=== PATIENT | female | born 1985 | race Caucasian/White ===

== ENCOUNTER → 2021-03-11 | Outpatient (CLI) | payer BC ==
[2021-03-11 11:21] LABS: Basophils # (A) 0.08 X 10*3/uL (0.00-0.10); Basophils % (A) 1.3 %; Eosinophils # (A) 0.12 X 10*3/uL (0.04-0.35); Eosinophils % (A) 1.9 %; HCT 42.7 % (37.2-46.3); HGB 13.8 g/dL (12.0-15.0); Lymphocytes # (A) 1.97 X 10*3/uL (0.90-5.00); Lymphocytes % (A) 31.2 %; MCH 27.4 pg (27.0-32.0); MCHC 32.3 g/dL (32.0-37.0); MCV 84.9 fL (80.0-97.0); Mean Platelet Volume 9.9 fL (9.5-12.2); Monocytes # (A) 0.61 X 10*3/uL (0.20-1.00); Monocytes % (A) 9.7 %; Neutrophils # (A) 3.53 X 10*3/uL (1.80-7.70); Neutrophils % (A) 55.7 %; Platelet Count 290 X 10*3/uL (140-440); RBC 5.03 X 10*6/uL (4.10-5.20); RDW 12.6 % (11.5-14.5); WBC 6.32 X 10*3/uL (4.50-10.00)
[2021-03-11 14:44] LABS: African American GFR (CKD) 110.7 (60.0-200.0); Albumin 4.2 g/dL (3.80-4.90); Albumin/Globulin Ratio 1.56 (1.60-3.17); Anion Gap 7.5 mmol/L (4.00-12.00); BUN/Creat Ratio 12.5 Ratio (12.00-20.00); Calcium 9.2 mg/dL (8.7-10.3); Carbon Dioxide 24.5 mmol/L (21.6-31.8); Globulin 2.7 g/dL (1.6-3.3); Non-African American GFR(CKD) 95.5 (60.0-200.0); Potassium 4.1 mmol/L (3.5-5.5); Total Bilirubin 0.6 mg/dL (0.2-1.2); Total Protein 6.9 g/dL (6.2-8.2)
[2021-03-11 15:21] LABS: Cancer Antigen 125 5.7 U/mL (0.0-30.1)
== END | disposition home or self-care (01) ==
LOC: LABWHC1 07:03
PROVIDERS: ATTEND Obstetrics & Gynecology Gynecologic Oncology
DX: D06.9 Carcinoma in situ of cervix, unspecified (principal)
CPT/HCPCS: 36415; 80053; 82378; 85025; 86304

== ENCOUNTER → 2021-06-04 | Outpatient (CLI) | payer BC ==
--- NOTE | 2021-06-08 09:49 | MM ---
Reason for exam: screening (asymptomatic). Baseline mammogram. History: Family history of breast cancer in paternal grandmother at age 40. Taking hormonal contraceptives beginning at age 13. Physical Findings: Nurse did not find any significant physical abnormalities on exam. MG 3D Screening Mammo W/Cad Bilateral CC and MLO view(s) were taken. The breast tissue is heterogeneously dense. This may lower the sensitivity of mammography. Finding: There is an equal density (isodense), microlobulated irregular mass in the 6 o'clock lower quadrant, middle position of the left breast. ASSESSMENT: Incomplete: need additional imaging evaluation, BI-RAD 0 RECOMMENDATION: Special view mammogram and ultrasound of the left breast. [facility] will attempt to contact patient to return for supplemental views and ultrasound.
== END | disposition home or self-care (01) ==
LOC: RADMAMWWP 14:07
PROVIDERS: ATTEND Obstetrics & Gynecology Gynecologic Oncology
DX: Z12.31 Encounter for screening mammogram for malignant neoplasm of breast (principal); Z80.3 Family history of malignant neoplasm of breast
CPT/HCPCS: 77063; 77067

== ENCOUNTER → 2021-06-17 | Outpatient (CLI) | payer BC ==
--- NOTE | 2021-06-17 11:20 | MM ---
Reason for exam: additional evaluation requested from abnormal screening. Last mammogram was performed less than 1 month ago. History: Family history of breast cancer in paternal grandmother at age 40. Taking hormonal contraceptives beginning at age 13. Physical Findings: Breast exam preformed at baseline screening. MG 3D Work Up W/Cad LT Spot compression CC, spot compression MLO, and LM view(s) were taken of the left breast. Prior study comparison: June 04, 2021, bilateral MG 3d screening mammo w/cad. There are scattered fibroglandular densities. The density becomes less defined on spot 3D views. 6mm lobulated asymmetry persists inferiorly on true lateral. These results were verbally communicated with the patient and result sheet given to the patient on 06/17/21. ASSESSMENT: Incomplete: need additional imaging evaluation, BI-RAD 0 RECOMMENDATION: Ultrasound of the left breast. (inferior half)
--- NOTE | 2021-06-17 11:22 | USB ---
Reason for exam: additional evaluation requested from abnormal screening. History: Family history of breast cancer in paternal grandmother at age 40. Taking hormonal contraceptives beginning at age 13. US Breast Workup Limited LT Left limited breast ultrasound including focal area of concern, retroareolar and axilla demonstrates a 4 x 3 x 5mm lobular lesion at 6 o'clock, collapsed cyst or cyst cluster is possible and is likely the mammographic correlate. 6 month follow up recommended. Scanned 3-9 o'clock. These results were verbally communicated with the patient and result sheet given to the patient on 06/17/21. ASSESSMENT: Probably benign, BI-RAD 3 RECOMMENDATION: Follow-up diagnostic mammogram of the left breast in 6 months.
== END | disposition home or self-care (01) ==
LOC: RADMAMWWP 08:18
PROVIDERS: ATTEND Obstetrics & Gynecology Gynecologic Oncology
DX: R92.2 Inconclusive mammogram (principal); N60.02 Solitary cyst of left breast; Z80.3 Family history of malignant neoplasm of breast
CPT/HCPCS: 77061; 77065

== ENCOUNTER → 2021-09-18 | Outpatient (CLI) | payer BC ==
--- NOTE | 2021-09-18 08:37 | XR ---
EXAMINATION TYPE: XR chest 2V DATE OF EXAM: 09/18/2021 COMPARISON: NONE HISTORY: Chest pain TECHNIQUE: Frontal and lateral views of the chest are obtained. FINDINGS: There is no focal air space opacity. No evidence for pneumothorax. No pleural effusion. The cardiac silhouette size is within normal limits. The osseous structures are grossly intact. IMPRESSION: 1. No acute cardiopulmonary process.
[2021-09-18 11:12] LABS: Basophils # (A) 0.08 X 10*3/uL (0.00-0.10); Eosinophils # (A) 0.13 X 10*3/uL (0.04-0.35); Eosinophils % (A) 1.7 %; HCT 44.2 % (37.2-46.3); Immature Grans, Automated 0.3 %; Lymphocytes % (A) 28.5 %; MCH 27.2 pg (27.0-32.0); MCHC 31.7 g/dL (32.0-37.0); Monocytes # (A) 0.59 X 10*3/uL (0.20-1.00); Monocytes % (A) 7.7 %; NRBC Per 100 WBC 0 /100 WBCS (0.0-0.0); Neutrophils # (A) 4.69 X 10*3/uL (1.80-7.70); Neutrophils % (A) 60.8 %; Platelet Count 312 X 10*3/uL (140-440); RBC 5.14 X 10*6/uL (4.10-5.20); RDW 13.1 % (11.5-14.5); WBC 7.71 X 10*3/uL (4.50-10.00)
[2021-09-18 11:43] LABS: African American GFR (CKD) 110.7 (60.0-200.0); Albumin 4.3 g/dL (3.8-4.9); Albumin/Globulin Ratio 1.72 (1.60-3.17); Anion Gap 11.9 mmol/L (10.00-18.00); BUN/Creat Ratio 12.38 Ratio (12.00-20.00); Blood Urea Nitrogen 9.9 mg/dL (9.0-27.0); Calcium 9.3 mg/dL (8.7-10.3); Carbon Dioxide 20.1 mmol/L (20.0-27.5); Globulin 2.5 g/dL (1.6-3.3); Non-African American GFR(CKD) 95.5 (60.0-200.0); Potassium 4.6 mmol/L (3.5-5.5); Total Bilirubin 0.3 mg/dL (0.30-1.20); Total Protein 6.8 g/dL (6.2-8.2)
== END | disposition home or self-care (01) ==
LOC: LABWHC1 08:01
PROVIDERS: ATTEND Obstetrics & Gynecology Gynecologic Oncology
DX: D06.9 Carcinoma in situ of cervix, unspecified (principal)
CPT/HCPCS: 36415; 71046; 80053; 82378; 85025; 86304

== ENCOUNTER → 2022-01-13 | Outpatient (CLI) | payer BC ==
--- NOTE | 2022-01-13 08:09 | MM ---
Reason for Exam: Follow-up at short interval from prior study. Last screening mammogram was performed 7 month(s) ago. Patient History: Menarche at age 13. First Full-Term at age 28. Hormonal Contraceptives, starting at age 13. Paternal grandmother had breast cancer, age 40. Last menstrual period: 12/30/2021 Risk Values: Gisella 5 year model risk: 0.4%. NCI Lifetime model risk: 11.3%. Prior Study Comparison: 06/04/2021 Bilateral Screening Mammogram, [facility]. 06/17/2021 Left Diagnostic Mammogram, [facility]. Tissue Density: Left: The breast tissue is heterogeneously dense. This may lower the sensitivity of mammography. Findings: Analyzed By CAD. Stable chronic nodularity in the left breast. Stable location of scattered benign-appearing round calcification left breast. No new masses or distortion. Overall Assessment: Benign, BI-RAD 2 Management: Screening Mammogram of both breasts at age 40. Return to routine follow-up. Electronically signed and approved by: Vinicio Berry M.D.
== END | disposition home or self-care (01) ==
LOC: RADMAMWWP 07:39
PROVIDERS: ATTEND Obstetrics & Gynecology Gynecologic Oncology
DX: R92.1 Mammographic calcification found on diagnostic imaging of breast (principal); Z80.3 Family history of malignant neoplasm of breast
CPT/HCPCS: 77061; 77065

== ENCOUNTER → 2022-05-10 | Outpatient (CLI) | payer OTHER ==
[2022-05-10 10:37] LABS: Basophils # (A) 0.07 X 10*3/uL (0.00-0.10); Basophils % (A) 1.2 %; Eosinophils # (A) 0.29 X 10*3/uL (0.04-0.35); Eosinophils % (A) 4.9 %; HCT 42.5 % (37.2-46.3); HGB 13.9 g/dL (12.0-15.0); Immature Grans, Automated 0.2 %; Lymphocytes # (A) 2.04 X 10*3/uL (0.90-5.00); Lymphocytes % (A) 34.2 %; MCH 27.5 pg (27.0-32.0); MCHC 32.7 g/dL (32.0-37.0); Mean Platelet Volume 9.9 fL (9.5-12.2); Monocytes # (A) 0.52 X 10*3/uL (0.20-1.00); Monocytes % (A) 8.7 %; NRBC Per 100 WBC 0 /100 WBCS (0.0-0.0); Neutrophils # (A) 3.03 X 10*3/uL (1.80-7.70); Neutrophils % (A) 50.8 %; Platelet Count 323 X 10*3/uL (140-440); RBC 5.06 X 10*6/uL (4.10-5.20); RDW 13.1 % (11.5-14.5); WBC 5.96 X 10*3/uL (4.50-10.00)
[2022-05-10 11:00] LABS: African American GFR (CKD) 109.9 (60.0-200.0); Albumin 4.3 g/dL (3.8-4.9); Albumin/Globulin Ratio 1.79 (1.60-3.17); Anion Gap 10.8 mmol/L (10.00-18.00); BUN/Creat Ratio 12.88 Ratio (12.00-20.00); Blood Urea Nitrogen 10.3 mg/dL (9.0-27.0); Calcium 9.8 mg/dL (8.7-10.3); Cancer Antigen 125 11.5 U/mL (0.0-30.1); Carbon Dioxide 25.2 mmol/L (20.0-27.5); Globulin 2.4 g/dL (1.6-3.3); Non-African American GFR(CKD) 94.8 (60.0-200.0); Potassium 4.3 mmol/L (3.5-5.5); Total Bilirubin 0.3 mg/dL (0.30-1.20); Total Protein 6.7 g/dL (6.2-8.2)
== END | disposition home or self-care (01) ==
LOC: LABWHC1 07:42
PROVIDERS: ATTEND Obstetrics & Gynecology Gynecologic Oncology
DX: D06.9 Carcinoma in situ of cervix, unspecified (principal)
CPT/HCPCS: 36415; 80053; 82378; 85025; 86304

== ENCOUNTER → 2022-11-11 | Outpatient (CLI) | payer OTHER ==
--- NOTE | 2022-11-11 08:42 | XR ---
EXAMINATION TYPE: XR chest 2V DATE OF EXAM: 11/11/2022 COMPARISON: 09/18/2021 INDICATION: Screening adenocarcinoma in situ of cervix TECHNIQUE: Frontal and lateral views of the chest are obtained. FINDINGS: The heart size is normal. The pulmonary vasculature is normal. The lungs are clear. IMPRESSION: 1. No acute pulmonary process.
[2022-11-11 10:53] LABS: Basophils # (A) 0.08 X 10*3/uL (0.00-0.10); Basophils % (A) 1.1 %; Eosinophils # (A) 0.07 X 10*3/uL (0.04-0.35); HCT 42.7 % (37.2-46.3); HGB 13.9 g/dL (12.0-15.0); Immature Grans, Automated 0.1 %; Lymphocytes # (A) 1.81 X 10*3/uL (0.90-5.00); Lymphocytes % (A) 24.9 %; MCH 27.5 pg (27.0-32.0); MCHC 32.6 g/dL (32.0-37.0); MCV 84.4 fL (80.0-97.0); Mean Platelet Volume 9.7 fL (9.5-12.2); Monocytes % (A) 8.3 %; NRBC Per 100 WBC 0 /100 WBCS (0.0-0.0); Neutrophils % (A) 64.6 %; Platelet Count 286 X 10*3/uL (140-440); RBC 5.06 X 10*6/uL (4.10-5.20); RDW 13.3 % (11.5-14.5); WBC 7.27 X 10*3/uL (4.50-10.00)
[2022-11-11 11:24] LABS: African American GFR (CKD) 109.2 (60.0-200.0); Albumin 4.3 g/dL (3.8-4.9); Albumin/Globulin Ratio 1.65 (1.60-3.17); Anion Gap 9.9 mmol/L (10.00-18.00); BUN/Creat Ratio 9.75 Ratio (12.00-20.00); Blood Urea Nitrogen 7.8 mg/dL (9.0-27.0); Calcium 9.6 mg/dL (8.7-10.3); Cancer Antigen 125 10.9 U/mL (0.0-30.1); Carbon Dioxide 23.1 mmol/L (20.0-27.5); Globulin 2.6 g/dL (1.6-3.3); Non-African American GFR(CKD) 94.2 (60.0-200.0); Potassium 4.3 mmol/L (3.5-5.5); Total Bilirubin 0.4 mg/dL (0.30-1.20); Total Protein 6.9 g/dL (6.2-8.2)
== END | disposition home or self-care (01) ==
LOC: LABWHC1 07:00
PROVIDERS: ATTEND Obstetrics & Gynecology Gynecologic Oncology
DX: D06.9 Carcinoma in situ of cervix, unspecified (principal)
CPT/HCPCS: 36415; 71046; 80053; 82378; 85025; 86304

== ENCOUNTER → 2022-11-25 | Outpatient (CLI) | payer OTHER ==
[2022-11-25 19:32] LABS: Basophils # (A) 0.05 X 10*3/uL (0.00-0.10); Basophils % (A) 0.8 %; Eosinophils # (A) 0.07 X 10*3/uL (0.04-0.35); Eosinophils % (A) 1.2 %; HCT 46.4 % (37.2-46.3); HGB 14.5 g/dL (12.0-15.0); Immature Grans, Automated 0.2 %; Lymphocytes % (A) 30.4 %; MCH 27.3 pg (27.0-32.0); MCHC 31.3 g/dL (32.0-37.0); MCV 87.2 fL (80.0-97.0); Monocytes # (A) 0.52 X 10*3/uL (0.20-1.00); Monocytes % (A) 8.8 %; NRBC Per 100 WBC 0 /100 WBCS (0.0-0.0); Neutrophils # (A) 3.48 X 10*3/uL (1.80-7.70); Neutrophils % (A) 58.6 %; Platelet Count 284 X 10*3/uL (140-440); RBC 5.32 X 10*6/uL (4.10-5.20); RDW 13.7 % (11.5-14.5); WBC 5.93 X 10*3/uL (4.50-10.00)
[2022-11-25 20:50] LABS: % Iron Saturation 16.65 (12.00-45.00); Ferritin 51.8 ng/mL (10.0-291.0)
== END | disposition home or self-care (01) ==
LOC: LABWHC1 07:22
PROVIDERS: ATTEND Family Medicine
DX: R79.0 Abnormal level of blood mineral (principal)
CPT/HCPCS: 36415; 82728; 83540; 83550; 85025

== ENCOUNTER → 2023-02-08 | Outpatient (CLI) | payer OTHER ==
--- NOTE | 2023-02-08 09:07 | MM ---
Reason for Exam: Screening (asymptomatic). Last mammogram was performed 1 year(s) and 8 month(s) ago. Patient History: Menarche at age 13. First Full-Term at age 28. Premenopausal. Hormonal Contraceptives, starting at age 13. Paternal grandmother had breast cancer, age 40. Risk Values: Gisella 5 year model risk: 0.4%. NCI Lifetime model risk: 11.2%. Prior Study Comparison: 06/04/2021 Bilateral Screening Mammogram, [facility]. 06/17/2021 Left Diagnostic Mammogram, [facility]. 01/13/2022 Left MG 3D diag mammo w/cad LT, [facility]. Tissue Density: There are scattered fibroglandular densities. Findings: Analyzed By CAD. There is no suspicious group of microcalcifications or new suspicious mass in either breast. Overall Assessment: Negative, BI-RAD 1 Management: Screening Mammogram of both breasts in [address] [facility] will attempt to contact patient to return for supplemental views and ultrasound if indicated. Patient should continue monthly self-breast exams. A clinical breast exam by your physician is recommended on an annual basis. This exam should not preclude additional follow-up of suspicious palpable abnormalities. Note on Gisella scores and lifetime risk: 1. A Gisella score greater than 3% is considered moderate risk. If this is the case, consider specialist referral to assess eligibility for a risk reducing agent. 2. If overall lifetime risk for the development of breast cancer is 20% or higher, the patient may qualify for future screening with alternating mammogram and breast MRI. Electronically signed and approved by: Miguel Angel Wilks DO
== END | disposition home or self-care (01) ==
LOC: RADMAMWWP 07:13
PROVIDERS: ATTEND Obstetrics & Gynecology Gynecologic Oncology
DX: Z12.31 Encounter for screening mammogram for malignant neoplasm of breast (principal); Z80.3 Family history of malignant neoplasm of breast
CPT/HCPCS: 77063; 77067

== ENCOUNTER → 2023-08-30 | Outpatient (CLI) | payer OTHER ==
[2023-08-30 13:05] LABS: Basophils # (A) 0.03 X 10*3/uL (0.00-0.10); Basophils % (A) 0.3 %; Eosinophils # (A) 0.02 X 10*3/uL (0.04-0.35); Eosinophils % (A) 0.2 %; HCT 42.1 % (37.2-46.3); HGB 13.7 g/dL (12.0-15.0); Lymphocytes # (A) 3.23 X 10*3/uL (0.90-5.00); Lymphocytes % (A) 30.8 %; MCH 28.2 pg (27.0-32.0); MCHC 32.5 g/dL (32.0-37.0); MCV 86.6 FL (80.0-97.0); Monocytes # (A) 0.87 X 10*3/uL (0.20-1.00); Monocytes % (A) 8.3 %; NRBC Per 100 WBC 0 X 10*3/uL (0.00-0.01); Neutrophils # (A) 6.32 X 10*3/uL (1.80-7.70); Neutrophils % (A) 60.2 %; Platelet Count 331 X 10*3/uL (140-440); RBC 4.86 X 10*6/uL (4.10-5.20); RDW 13.1 % (11.5-14.5); WBC 10.49 X 10*3/uL (4.50-10.00)
[2023-08-30 13:44] LABS: ALT 12 U/L (8-44); AST 14 U/L (13-35); Albumin 4.7 g/dL (3.8-4.9); Albumin/Globulin Ratio 1.88 Ratio (1.60-3.17); Alkaline Phosphatase 50 U/L (41-126); Blood Urea Nitrogen 10.8 mg/dL (9.0-27.0); Calcium 9.8 mg/dL (8.7-10.3); Cancer Antigen 125 9.8 U/mL (0.0-30.1); Carbon Dioxide 25.1 mmol/L (21.6-31.8); Chloride 101 mmol/L (96-109); Globulin 2.5 g/dL (1.6-3.3); Glucose 95 mg/dL (70-110); Potassium 3.8 mmol/L (3.5-5.5); Sodium 137 mmol/L (135-145); Total Bilirubin 0.4 mg/dL (0.3-1.2); Total Protein 7.2 g/dL (6.2-8.2)
== END | disposition home or self-care (01) ==
LOC: LABWHC1 07:13
PROVIDERS: ATTEND Obstetrics & Gynecology Gynecologic Oncology
DX: D06.9 Carcinoma in situ of cervix, unspecified (principal)
CPT/HCPCS: 36415; 80053; 82378; 85025; 86304

== ENCOUNTER → 2023-08-31 | Outpatient (CLI) | payer OTHER ==
--- NOTE | 2023-09-01 10:58 | MM ---
Reason for Exam: Screening (asymptomatic). Last screening mammogram was performed 6 month(s) ago. Patient History: Menarche at age 13. First Full-Term at age 28. Premenopausal. Hormonal Contraceptives, starting at age 13. Paternal grandmother had breast cancer, age 40. Risk Values: Gisella 5 year model risk: 0.4%. NCI Lifetime model risk: 11.2%. Prior Study Comparison: 06/17/2021 Left Diagnostic Mammogram, [facility]. 01/13/2022 Left MG 3D diag mammo w/cad LT, [facility]. 02/08/2023 Bilateral MG 3D screening mammo w/cad, [facility]. Tissue Density: The breast tissue is heterogeneously dense. This may lower the sensitivity of mammography. Findings: Analyzed By CAD. There is no suspicious group of microcalcifications or new suspicious mass. Benign-appearing calcifications bilaterally. Overall Assessment: Benign, BI-RAD 2 Management: Screening Mammogram of both breasts in [address] [facility] will attempt to contact patient to return for supplemental views and ultrasound if indicated. Patient should continue monthly self-breast exams. A clinical breast exam by your physician is recommended on an annual basis. This exam should not preclude additional follow-up of suspicious palpable abnormalities. Note on Gisella scores and lifetime risk: 1. A Gisella score greater than 3% is considered moderate risk. If this is the case, consider specialist referral to assess eligibility for a risk reducing agent. 2. If overall lifetime risk for the development of breast cancer is 20% or higher, the patient may qualify for future screening with alternating mammogram and breast MRI. Electronically signed and approved by: Miguel Angel Wilks DO
== END | disposition home or self-care (01) ==
LOC: RADMAMWWP 06:51
PROVIDERS: ATTEND Obstetrics & Gynecology Gynecologic Oncology
DX: Z12.31 Encounter for screening mammogram for malignant neoplasm of breast (principal); Z80.3 Family history of malignant neoplasm of breast
CPT/HCPCS: 77063; 77067

== ENCOUNTER 2024-05-06 09:42 | Inpatient (IN) | payer OTHER ==
[2024-05-06] MEDS: SODIUM CHLORIDE 0.9% 1,000 ML IV ONE (10:28)
[2024-05-06] MEDS: HYDROmorphone 1 MG/ML 1 ML SYRINGE IVP STA ×2 (10:29→14:45)
[2024-05-06] MEDS: ONDANSETRON 4 MG/2 ML VIAL IVP STA (10:29)
--- NOTE | 2024-05-06 10:33 | ED ---
General Adult HPI - General Chief complaint: Headache Stated complaint: Headache Time Seen by Provider: 05/06/24 09:53 Source: patient, RN notes reviewed, old records reviewed Mode of arrival: ambulatory Limitations: no limitations - History of Present Illness Initial comments: 38 yo female presenting with headache, left frontal. Headache is severe. Nova ferro has been seen in outpatient clinic, seen by ENT, referred to the emergency room where she underwent CT imaging of the brain. Diagnosed with sinusitis for which she has been on antibiotics for the past several days. She has persistent severe pain above the left eye. - Related Data Allergies Allergy/AdvReac Type Severity Reaction Status Date / Time peanut AdvReac Nausea & Verified 05/06/24 09:53 Vomiting tuna oil AdvReac Unknown Verified 05/06/24 09:53 Review of Systems ROS Statement: Those systems with pertinent positive or pertinent negative responses have been documented in the HPI. ROS Other: All systems not noted in ROS Statement are negative. Past Medical History Past Medical History: No Reported History History of Any Multi-Drug Resistant Organisms: None Reported Additional Past Surgical History / Comment(s): septoplasty Past Psychological History: Depression Smoking Status: Vaper Past Alcohol Use History: Occasional Past Drug Use History: None Reported General Exam Limitations: no limitations General appearance: alert Head exam: Present: atraumatic, normocephalic Eye exam: Present: PERRL, EOMI, conjunctival injection (Chemosis) Neck exam: Present: normal inspection. Absent: tenderness, meningismus Respiratory exam: Present: normal lung sounds bilaterally. Absent: respiratory distress, wheezes Cardiovascular Exam: Present: regular rate, normal rhythm GI/Abdominal exam: Present: soft. Absent: distended, tenderness, guarding Neurological exam: Present: alert, oriented X3, CN II-XII intact. Absent: motor sensory deficit Psychiatric exam: Present: normal affect, normal mood Skin exam: Present: warm, dry, intact. Absent: cyanosis, diaphoretic Course Vital Signs 05/06/24 09:50 Temperature 97.9 F Pulse Rate 74 Respiratory 20 Rate Blood Pressure 135/102 O2 Sat by Pulse 97 Oximetry Medical Decision Making - Medical Decision Making Was pt. sent in by a medical professional or institution (, PA, [employer], urgent care, hospital, or [facility]...) When possible be specific @ -No Did you speak to anyone other than the patient for history (EMS, parent, family, police, friend...)? What history was obtained from this source @ -No Did you review nursing and triage notes (agree or disagree)? Why? @ -I reviewed and agree with nursing and triage notes Were old charts reviewed (outside hosp., previous admission, EMS record, old EKG , old radiological studies, urgent care reports/EKG's, [facility] records)? Report findings @ -No old charts were reviewed Differential Headache: Migraine, tension, cluster, carbon monoxide, central venous thrombosis, pension karma temporal arteritis, acute closure glaucoma, intercranial hemorrhage, mastoiditis, sinusitis, head injury, this is not meant to be an all-inclusive list. EKG interpreted by me (3pts min.). @ -As above X-rays interpreted by me (1pt min.). @ -None done CT interpreted by me (1pt min.). @CT brain and CT of the left orbit are negative for acute process. There is no signs of sinusitis on CT imaging. U/S interpreted by me (1pt. min.). @ -None done What testing was considered but not performed or refused? (CT, X-rays, U/S, labs)? Why? @ -None What meds were considered but not given or refused? Why? @ -None Did you discuss the management of the patient with other professionals (professionals i.e. , PA, [employer], lab, RT, psych nurse, social media marketing specialist, hospitality services manager, teacher, botanical technical officer, counseling case manager)? Give summary @ -No Was smoking cessation discussed for >3mins.? @ -No Was critical care preformed (if so, how long)? @ -No Were there social determinants of health that impacted care today? How? (Homelessness, low income, unemployed, alcoholism, drug addiction, transportation, low edu. Level, literacy, decrease access to med. care, [facility], rehab)? @ -No Was there de-escalation of care discussed even if they declined (Discuss DNR or withdrawal of care, Hospice)? DNR status @ -No What co-morbidities impacted this encounter? (DM, HTN, Smoking, COPD, CAD, Ca ncer, CVA, ARF, Chemo, Hep., AIDS, mental health diagnosis, sleep apnea, morbid obesity)? @ -None Was patient admitted / discharged? Hospital course, mention meds given and route, prescriptions, significant lab abnormalities, going to OR and other pertinent info. @ -38-year-old female with severe left sided headache predominantly left frontal. This is intermittent and severe in nature. Head CT and CT of the orbit is obtained as well as laboratory studies including inflammatory markers. Workup in the emergency department is negative. I do suspect her headache is caused by trigeminal neuralgia. She started on carbamazepine. But given the severity of her headache and the persistence of this headache she will be admitted for symptom control. Neurology placed on consult. Case discussed with [facility]. Undiagnosed new problem with uncertain prognosis? @ -No Drug Therapy requiring intensive monitoring for toxicity (Heparin, Nitro, Insulin, Cardizem)? @ -No Were any procedures done? @ -No Diagnosis/symptom? @ -Intractable headache, possible trigeminal neuralgia Acute, or Chronic, or Acute on Chronic? @ -Acute Uncomplicated (without systemic symptoms) or Complicated (systemic symptoms)? @ -Default Side effects of treatment? @ -No Exacerbation, Progression, or Severe Exacerbation? @ -No Poses a threat to life or bodily function? How? (Chest pain, [place], [place], pneumonia, PE, COPD, DKA, ARF, appy, cholecystitis, CVA, Diverticulitis, Homicidal, Suicidal, threat to staff... and all critical care pts) @ -Low risk at this time - Lab Data Result diagrams: 05/06/24 10:35 05/06/24 10:35 Lab Results 05/06/24 05/06/24 05/06/24 Range/Units 10:35 10:35 10:35 WBC 6.8 (3.8-10.6) k/uL RBC 4.84 (3.80-5.40) m/uL Hgb 14.2 (11.4-16.0) gm/dL Hct 41.8 (34.0-46.0) % MCV 86.4 (80.0-100.0) fL MCH 29.3 (25.0-35.0) pg MCHC 33.8 (31.0-37.0) g/dL RDW 12.6 (11.5-15.5) % Plt Count 250 (150-450) k/uL MPV 7.6 Neutrophils % 70 % Lymphocytes % 20 % Monocytes % 6 % Eosinophils % 2 % Basophils % 1 % Neutrophils # 4.8 (1.3-7.7) k/uL Lymphocytes # 1.4 (1.0-4.8) k/uL Monocytes # 0.4 (0-1.0) k/uL Eosinophils # 0.1 (0-0.7) k/uL Basophils # 0.1 (0-0.2) k/uL Sodium 136 L (137-145) mmol/L Potassium 4.0 (3.5-5.1) mmol/L Chloride 106 (98-107) mmol/L Carbon Dioxide 27 (22-30) mmol/L Anion Gap 3 mmol/L BUN 11 (7-17) mg/dL Creatinine 0.67 (0.52-1.04) mg/dL Est GFR (CKD-EPI)AfAm >90 (>60 ml/min/1.73 sqM) Est GFR (CKD-EPI)NonAf >90 (>60 ml/min/1.73 sqM) Glucose 96 (74-99) mg/dL Plasma Lactic Acid Josh 1.3 (0.7-2.0) mmol/L Calcium 9.3 (8.4-10.2) mg/dL Magnesium 1.8 (1.6-2.3) mg/dL Total Bilirubin 0.5 (0.2-1.3) mg/dL AST 18 (14-36) U/L ALT 14 (4-34) U/L Alkaline Phosphatase 40 (38-126) U/L C-Reactive Protein <0.5 (<1.0) mg/dL Total Protein 6.4 (6.3-8.2) g/dL Albumin 4.0 (3.5-5.0) g/dL Influenza Type A (PCR) (Not Detectd) Influenza Type B (PCR) (Not Detectd) RSV (PCR) (Not Detectd) SARS-CoV-2 (PCR) (Not Detectd) 05/06/24 Range/Units 10:35 WBC (3.8-10.6) k/uL RBC (3.80-5.40) m/uL Hgb (11.4-16.0) gm/dL Hct (34.0-46.0) % MCV (80.0-100.0) fL MCH (25.0-35.0) pg MCHC (31.0-37.0) g/dL RDW (11.5-15.5) % Plt Count (150-450) k/uL MPV Neutrophils % % Lymphocytes % % Monocytes % % Eosinophils % % Basophils % % Neutrophils # (1.3-7.7) k/uL Lymphocytes # (1.0-4.8) k/uL Monocytes # (0-1.0) k/uL Eosinophils # (0-0.7) k/uL Basophils # (0-0.2) k/uL Sodium (137-145) mmol/L Potassium (3.5-5.1) mmol/L Chloride (98-107) mmol/L Carbon Dioxide (22-30) mmol/L Anion Gap mmol/L BUN (7-17) mg/dL Creatinine (0.52-1.04) mg/dL Est GFR (CKD-EPI)AfAm (>60 ml/min/1.73 sqM) Est GFR (CKD-EPI)NonAf (>60 ml/min/1.73 sqM) Glucose (74-99) mg/dL Plasma Lactic Acid Josh (0.7-2.0) mmol/L Calcium (8.4-10.2) mg/dL Magnesium (1.6-2.3) mg/dL Total Bilirubin (0.2-1.3) mg/dL AST (14-36) U/L ALT (4-34) U/L Alkaline Phosphatase (38-126) U/L C-Reactive Protein (<1.0) mg/dL Total Protein (6.3-8.2) g/dL Albumin (3.5-5.0) g/dL Influenza Type A (PCR) Not Detected (Not Detectd) Influenza Type B (PCR) Not Detected (Not Detectd) RSV (PCR) Not Detected (Not Detectd) SARS-CoV-2 (PCR) Not Detected (Not Detectd) Disposition Clinical Impression: Trigeminal neuralgia, Headache Disposition: ADMITTED IP TO THIS [facility] Condition: Stable Is patient prescribed a controlled substance at d/c from ED?: No Referrals: None,Stated [Primary Care Provider] - 1-2 days Time of Disposition: 13:49
[2024-05-06 11:03] LABS: Basophils # (A) 0.1 k/uL (0-0.2); Basophils % (A) 1 %; Eosinophils # (A) 0.1 k/uL (0-0.7); Eosinophils % (A) 2 %; HCT 41.8 % (34.0-46.0); HGB 14.2 gm/dL (11.4-16.0); Lymphocytes # (A) 1.4 k/uL (1.0-4.8); Lymphocytes % (A) 20 %; MCH 29.3 pg (25.0-35.0); MCHC 33.8 g/dL (31.0-37.0); MCV 86.4 fL (80.0-100.0); Mean Platelet Volume 7.6; Monocytes # (A) 0.4 k/uL (0-1.0); Monocytes % (A) 6 %; Neutrophils # (A) 4.8 k/uL (1.3-7.7); Neutrophils % (A) 70 %; Platelet Count 250 k/uL (150-450); RBC 4.84 m/uL (3.80-5.40); RDW 12.6 % (11.5-15.5); WBC 6.8 k/uL (3.8-10.6)
--- NOTE | 2024-05-06 11:14 | CT ---
EXAMINATION TYPE: CT brain wo con DATE OF EXAM: 05/06/2024 COMPARISON: None INDICATION: PIERSON/EYE PAIN DLP: 1168.5 mGycm, Automated exposure control for dose reduction was used. CONTRAST: None CT of the brain is performed utilizing 3 mm thick sections through the posterior fossa and 3 mm thick sections through the remaining calvarium. Study is performed within 24 hours of arrival to the hosp [place]. No abnormal hyperdensity is present to suggest an acute intracranial hemorrhage. No mass lesion is evident. No acute infarcts are evident. Ventricles and sulci are appropriate for the patient age. Paranasal sinuses and mastoid air cells within the [id number] are clear. IMPRESSION: 1. No acute intracranial process. Follow up MRI can be performed as clinically indicated. [facility], Workstation: [email or web address], 05/06/2024 11:11 AM
[2024-05-06 11:15] LABS: ALT 14 U/L (4-34); AST 18 U/L (14-36); African American GFR (CKD) >90 (>60 ml/min/1.73 sqM); Alkaline Phosphatase 40 U/L (38-126); Anion Gap 3 mmol/L; Blood Urea Nitrogen 11 mg/dL (7-17); C Reactive Protein <0.5 mg/dL (<1.0); Calcium 9.3 mg/dL (8.4-10.2); Carbon Dioxide 27 mmol/L (22-30); Chloride 106 mmol/L (98-107); Glucose 96 mg/dL (74-99); Magnesium 1.8 mg/dL (1.6-2.3); Non-African American GFR(CKD) >90 (>60 ml/min/1.73 sqM); Sodium 136 mmol/L (137-145); Total Bilirubin 0.5 mg/dL (0.2-1.3); Total Protein 6.4 g/dL (6.3-8.2)
--- NOTE | 2024-05-06 11:16 | CT ---
EXAMINATION TYPE: CT orbits w con DATE OF EXAM: 05/06/2024 COMPARISON: None HISTORY: SEVERE EYE PAIN CT DLP: 286.3 mGycm Automated exposure control for dose reduction was used. Contrast: None Technique: Axial images 2 mm thick sections. Reconstructed images coronal plane. FINDINGS: Globes are symmetrical. Extraocular muscles appear normal. Intraconal and extraconal fat appears norm al. Optic nerves appear unremarkable. Superior ophthalmic veins appear unremarkable. Lacrimal glands appear unremarkable Adjacent paranasal sinuses are clear. No acute osseous abnormality. Greater wings of the sphenoid are normal. Ostiomeatal units are patent. Mild right septal deviation is evident. IMPRESSION: 1. NO SUSPICIOUS ORBITAL CHANGES BY CT. [facility], Workstation: [facility], 05/06/2024 11:14 AM
[2024-05-06] MEDS: carBAMazepine 200 MG TAB PO STA (11:53)
[2024-05-06] MEDS ORDERED: NALOXONE 0.4 MG/ML 1 ML VIAL IV PRN (13:46)
[2024-05-06] MEDS: SODIUM CHLORIDE 0.9% 1,000 ML IV SCH (14:47)
[2024-05-06] MEDS: KETOROLAC 15 MG/ML 1 ML VIAL IVP STA (16:10)
[2024-05-06] MEDS: PROCHLORPERAZINE INJ 10 MG/2 ML VIAL IVP STA (16:11)
[2024-05-06] MEDS: diphenhydrAMINE 50 MG/ML 1 ML VIAL IVP STA (16:11)
--- NOTE | 2024-05-06 16:17 | P.HPIM ---
History of Present Illness H&P Date: 05/06/24 History of Presenting Illness: Patient is a pleasant 38-year-old female with a past medical history of depression, nicotine use via vaping, and previous septoplasty. She presented to the emergency department with reports of severe intractable migraine headache. Patient reports symptoms initially began 10 days ago. She reports she was seen and evaluated in the emergency department and diagnosed with a sinus infection and started on Augmentin and discharged home. She reports she followed up outpatient with her PCP and was referred to the ENT. She states after seeing the ENT she was sent back to the emergency department at [facility] and was again instructed that she had a sinus infection and to continue same antibiotic regimen and discharged home. Patient reports initially this headache waxed and waned but over the past 3 to 4 days the symptoms significantly worsened and have become a sharp persistent pain above her left eye accompanied by drooping of her left eyelid, and pink watery left eye. She denies having any visual changes states things are little blurry due to the excess tearing but denies having any double vision, floaters, flashers, or loss of vision. Patient denies having any dizziness, lightheadedness, fevers, chills, chest pain, palpitations, shortness of breath, or experiencing any numbness/tingling/weakness/swelling in her extremities. Patient does deny chance of and reports having a negative test just 3 days prior. Upon arrival to our facility, patient underwent evaluation in the emergency department. Vital signs upon arrival show blood pressure 135/102, heart rate 74, respiratory rate 20, temp 97.9 F, and SpO2 of 97% on room air. CT brain completed negative for acute intracranial process. Orbital CT with contrast negative showing no suspicious orbital changes by CT criteria, revealing mild right septal deviation with clear paranasal sinuses.. Labs completed and reviewed. CBC unremarkable. BMP normal findings. Lactic acid 1.3. Magnesium 1.8. Liver profile unremarkable. CRP less than 0.5. Influenza A, influenza B, RSV, and COVID PCR negative. Patient started on Tegretol for concerns of trigeminal neuralgia. She was admitted under services with consultation to neurology. Review of systems: Pertinent positives and negatives as discussed in HPI, a complete review of systems was performed and all other systems are negative. Physical exam: Vital signs reviewed and stable. General: Nontoxic, no distress and appears stated age. Derm: Skin warm and dry, normal coloration for ethnicity. Head: Atraumatic, normocephalic and symmetric. Eyes: EOM's intact, no lid lag, and anicteric sclera Mouth: no lip lesions, mucus membranes moist Cardiovascular: regular rate and rhythm with normal S1S2, no murmur, positive posterior tibial pulses bilaterally, and cap refill < 2 seconds. Lungs: Respirations even, regular, and unlabored on room air. Lungs CTA bilaterally, no rhonchi, no rales, no wheezing, and no accessory muscle usage. Abdominal: soft, nontender to palpation, no guarding, no appreciable organomegaly Ext: ROM intact. No gross muscle atrophy, no edema, no contractures Neuro: Speech clear, face symmetrical and CN II-XII grossly intact with no noted focal neuro deficits Psych: Alert and oriented to person, place, time, and situation. Appropriate and pleasant affect. Assessment and Plan of Care: Intractable migraine with concerns of cluster headache vs trigeminal neuralgia -Symptoms highly concerning for cluster headache versus trigeminal neuralgia as patient has drooping left eyelid, sinus congestion, continuous tearing, and reddened sclera. -Patient started on carbamazepine 200 mg twice daily in the emergency department. -Order placed for Decadron 10 mg IVP x 1 dose along with migraine cocktail consisting of Toradol 15 mg IVP, Benadryl 25 mg IVP, and Compazine 10 mg IVP -Consult placed to neurology, appreciate recommendations -Order placed for serum hCG -Neurochecks every 4 hours. -Symptomatic care and pain management with Zofran 4 mg IVP as needed for nausea or vomiting and Artificial tears 2 drops left eye every 4 hours as needed for dry eyes/irritation. . -Pain management with-Tylenol 650 mg every 6 hours as needed for mild pain/fever, Dilaudid 0.5 mg every 3 hours as needed for moderate pain, and Dilaudid 1 mg IVP every 3 hours as needed for severe pain. Depression and anxiety -Continue sertraline 100 mg nightly. Data and imaging reviewed: -As stated above in HPI CODE STATUS: Full code DVT prophylaxis: Lovenox Anticipated discharge date: Pending clinical course Anticipated discharge place: Home Patient was seen independently by Nurse Practitioner. This document was prepared using [employer] dictation software. Please allow for errors in engineering director while rare they do occur. I reviewed the documentation as provided by the SYDNIE above, who is the original author of this note. I agree with the documented assessment and plan, with the following changes: none Past Medical History Past Medical History: No Reported History History of Any Multi-Drug Resistant Organisms: None Reported Additional Past Surgical History / Comment(s): septoplasty Past Psychological History: Depression Smoking Status: Vaper Past Alcohol Use History: Occasional Past Drug Use History: None Reported Medications and Allergies Home Medications Medication Instructions Recorded Confirmed Type Cetirizine HCl [Zyrtec] 10 mg PO HS 05/06/24 05/06/24 History Sertraline [Zoloft] 100 mg PO HS 05/06/24 05/06/24 History hydrOXYzine HCL [Atarax] 10 mg PO HS 05/06/24 05/06/24 History Allergies Allergy/AdvReac Type Severity Reaction Status Date / Time peanut AdvReac Nausea & Verified 05/06/24 14:33 Vomiting tuna oil AdvReac Unknown Verified 05/06/24 14:33 Physical Exam Osteopathic Statement: *. No significant issues noted on an osteopathic structural exam other than those noted in the History and Physical/Consult. Vitals: Vital Signs Temp Pulse Resp BP Pulse Ox 05/06/24 14:52 79 18 133/95 05/06/24 11:46 140/90 05/06/24 09:50 97.9 F 74 20 135/102 97 Intake and Output 05/05/24 05/06/24 05/06/24 22:59 06:59 14:59 Other: Weight 77.111 kg Results CBC & Chem 7: 05/06/24 10:35 05/06/24 10:35 Labs: Abnormal Lab Results - Last 24 Hours (Table) 05/06/24 Range/Units 10:35 Sodium 136 L (137-145) mmol/L
[2024-05-06] MEDS: DEXAMETHASONE SOD PHOSPHATE 10 MG/ML 1 ML VIAL IVP STA (16:57)
[2024-05-06] MEDS: HYDROmorphone 1 MG/ML 1 ML SYRINGE IVP PRN (19:31)
[2024-05-06] MEDS: carBAMazepine 200 MG TAB PO SCH (22:05)
[2024-05-06] MEDS: hydrOXYzine HCL 10 MG TAB PO SCH (22:05)
[2024-05-06] MEDS: SERTRALINE 100 MG TAB PO SCH (22:06)
[2024-05-06] MEDS: LORATADINE 10 MG TAB PO SCH (22:06)
[2024-05-06 23:05] LABS: Erythrocyte Sedimentation Rate 11 mm/Hr (0-20)
[2024-05-07 02:30] LABS: HCT 40.2 % (34.0-46.0); HGB 13.1 gm/dL (11.4-16.0); MCH 29.2 pg (25.0-35.0); MCHC 32.5 g/dL (31.0-37.0); MCV 89.7 fL (80.0-100.0); Mean Platelet Volume 7.6; Platelet Count 280 k/uL (150-450); RBC 4.48 m/uL (3.80-5.40); RDW 12.5 % (11.5-15.5); WBC 10.6 k/uL (3.8-10.6)
[2024-05-07 03:00] LABS: Anion Gap 3 mmol/L; Blood Urea Nitrogen 9 mg/dL (7-17); Carbon Dioxide 24 mmol/L (22-30); Chloride 107 mmol/L (98-107); Glucose 113 mg/dL (74-99); Potassium 4.3 mmol/L (3.5-5.1); Sodium 134 mmol/L (137-145)
[2024-05-07 03:01] LABS: African American GFR (CKD) >90 (>60 ml/min/1.73 sqM); Calcium 8.8 mg/dL (8.4-10.2); Non-African American GFR(CKD) >90 (>60 ml/min/1.73 sqM)
[2024-05-07] MEDS: ONDANSETRON 4 MG/2 ML VIAL IVP PRN (05:40)
[2024-05-07] MEDS: ENOXAPARIN 40 MG/0.4 ML SYRINGE SQ SCH (08:26)
[2024-05-07] MEDS: IBUPROFEN 400 MG TAB PO PRN (08:26)
[2024-05-07] MEDS: PROCHLORPERAZINE INJ 10 MG/2 ML VIAL IVP PRN (09:44)
[2024-05-07] MEDS: SUMAtriptan succinate 50 MG TAB PO STA (11:36)
--- NOTE | 2024-05-07 14:19 | P.PN ---
Subjective Progress Note Date: 05/07/24 History of Presenting Illness: Patient is a pleasant 38-year-old female with a past medical history of depression, nicotine use via vaping, and previous septoplasty. She presented to the emergency department with reports of severe intractable migraine headache. Patient reports symptoms initially began 10 days ago. She reports she was seen and evaluated in the emergency department and diagnosed with a sinus infection and started on Augmentin and discharged home. She reports she followed up outpatient with her PCP and was referred to the ENT. She states after seeing the ENT she was sent back to the emergency department at [facility] and was again instructed that she had a sinus infection and to continue same antibiotic regimen and discharged home. Patient reports initially this headache waxed and waned but over the past 3 to 4 days the symptoms significantly worsened and have become a sharp persistent pain above her left eye accompanied by drooping of her left eyelid, and pink watery left eye. She denies having any visual changes states things are little blurry due to the excess tearing but denies having any double vision, floaters, flashers, or loss of vision. Patient denies having any dizziness, lightheadedness, fevers, chills, chest pain, palpitations, shortness of breath, or experiencing any numb ness/tingling/weakness/swelling in her extremities. Patient does deny chance of and reports having a negative test just 3 days prior. Upon arrival to our facility, patient underwent evaluation in the emergency department. Vital signs upon arrival show blood pressure 135/102, heart rate 74, respiratory rate 20, temp 97.9 F, and SpO2 of 97% on room air. CT brain completed negative for acute intracranial process. Orbital CT with contrast negative showing no suspicious orbital changes by CT criteria, revealing mild right septal deviation with clear paranasal sinuses.. Labs completed and reviewed. CBC unremarkable. BMP normal findings. Lactic acid 1.3. Magnesium 1.8. Liver profile unremarkable. CRP less than 0.5. Influenza A, influenza B, RSV, and COVID PCR negative. Patient started on Tegretol for concerns of trigeminal neuralgia. She was admitted under services with consultation to neurology. Physical exam: Patient seen and fully evaluated at bedside. She was in a dark room with ice pack on her head and earplugs in place. She continues to report persistent unrelenting headache to left frontal region of her head. She continues to have left eyelid drooping, reddened sclera, and continuous tearing of left eye. She reports uncontrolled nausea, photophobia and phonophobia. Patient has been receiving Dilaudid and received migraine cocktail with no resolution of pain. She has been on Tegretol 200 mg twice daily and Zofran for nausea without improvement. Additional orders placed for Compazine and a one-time dose of Imitrex. Vital signs reviewed and stable. General: Nontoxic, no distress and appears stated age. Derm: Skin warm and dry, normal coloration for ethnicity. Head: Atraumatic, normocephalic and symmetric. Eyes: EOM's intact, and anicteric sclera. left eyelid drooping, reddened s clera, and continuous tearing of left eye. Mouth: no lip lesions, mucus membranes moist Cardiovascular: regular rate and rhythm with normal S1S2, no murmur, positive posterior tibial pulses bilaterally, and cap refill < 2 seconds. Lungs: Respirations even, regular, and unlabored on room air. Lungs CTA bilaterally, no rhonchi, no rales, no wheezing, and no accessory muscle usage. Abdominal: soft, nontender to palpation, no guarding, no appreciable organomegaly Ext: ROM intact. No gross muscle atrophy, no edema, no contractures Neuro: Speech clear, face symmetrical and CN II-XII grossly intact with no noted focal neuro deficits Psych: Alert and oriented to person, place, time, and situation. Appropriate and pleasant affect. Assessment and Plan of Care: Intractable migraine with concerns of cluster headache vs trigeminal neuralgia -Symptoms highly concerning for cluster headache versus trigeminal neuralgia as patient has drooping left eyelid, sinus congestion, continuous tearing, and reddened sclera. -Continue carbamazepine 200 mg twice daily pending further recommendations from neurologist. -Order placed for -Neurology following, discussed plan of care with Dr. Smith and he states he is ordering MRI and MRA of brain. -Neurochecks every 4 hours. -Symptomatic care and pain management with Zofran 4 mg IVP as needed for nausea or vomiting and Artificial tears 2 drops left eye every 4 hours as needed for dry eyes/irritation. Patient also started on Compazine 10 mg IVP every 6 hours as needed for persistent nausea. -Order placed for one-time dose of Imitrex -Pain management with-Tylenol 650 mg every 6 hours as needed for mild pain/fever, Dilaudid 0.5 mg every 3 hours as needed for moderate pain, and Dilaudid 1 mg IVP every 3 hours as needed for severe pain. Depression and anxiety -Continue sertraline 100 mg nightly. Data and imaging reviewed: -Serum hCG was negative -Vital signs reviewed and stable. Blood pressure 130/86, heart rate 79, respiratory rate 17, temp 98.4 F, and SpO2 of 97% on room air. -Labs completed and reviewed. CBC unremarkable. BMP showing mild hyponatremia with sodium of 134 and glucose of 113. Magnesium 2.0. CODE STATUS: Full code DVT prophylaxis: Lovenox Anticipated discharge date: Pending clinical course Anticipated discharge place: Home Patient was seen independently by Nurse Practitioner. This document was prepared using [employer] dictation software. Please allow for errors in freight brakeman while rare they do occur. I reviewed the documentation as provided by the SYDNIE above, who is the original author of this note. I agree with the documented assessment and plan, with the following changes: none Objective - Vital Signs Vital signs: Vital Signs Temp 97.8 F 05/07/24 02:18 Pulse 70 05/07/24 02:18 Resp 18 05/07/24 02:18 BP 130/91 05/07/24 02:18 Pulse Ox 98 05/07/24 02:18 FiO2 Intake & Output 05/06/24 05/07/24 05/07/24 18:59 06:59 18:59 Intake Total 1400 Balance 1400 Weight 77.111 kg Intake: Intake, IV Titration 900 Amount Sodium Chloride 0.9% 1, 900 000 ml @ 75 mls/hr IV . [id number] [place] Rx#:[id number] Oral 500 Other: # Voids 2 - Labs CBC & Chem 7: 05/07/24 01:14 05/07/24 01:17 Labs: Abnormal Lab Results - Last 24 Hours (Table) 05/06/24 05/07/24 Range/Units 10:35 01:17 Sodium 136 L 134 L (137-145) mmol/L Glucose 113 H (74-99) mg/dL
--- NOTE | 2024-05-07 16:00 | P.CNNES ---
History of Present Illness Consult date: 05/07/24 Requesting physician: Miguel Angel Gonzalez Reason for Consult: severe roque, possible trigeminal neuralgia History of Present Illness: This is a 38-year-old woman who presented emergency department because of worsening of her headache. Patient states her headache began about 14 days ago in which she notices over the left periorbital but only on the upper side and she stated it is worsening. She stated it constant. She describes the headache as sharp to dull and rates it about 9-10 out of 10. Today she had minimal na usea. She noticed that her left eye has becoming blurry and red. She also noticed some left upper eyelid is more swollen. Denies any head trauma, denies any focal weakness. Denies any facial numbness difficulty swallowing. Denies any sick contacts or any rash. Denies any fevers. Denies any similar headaches like this in the past. She states she had migraines in the past but that it has been 5 6 years ago when she was on contraceptive but has not had any headache since then. She initially went to urgent care last Tuesday and was given antibiotic then she went to [facility] in [place] he will and they told her both the urgent care in [place] that she had sinusitis and in the ED at [place] did give her IV form of antibiotic and was discharged home. She did state that she had a CT at the hospital of the head which was unremarkable. Stated that today she feels minimal relief after getting Dilaudid. Some of the workup during this hospital visit consisted of: Temperature has been normal. CBC with differential is unremarkable ESR is 11. Plasma lactic acid vein is 1.3. Hcg is not detected. CT of the head is reported as no acute intracranial process. I personally re viewed the CT and agree with the report The orbit is reported as no suspicious orbital changed by CT Review of Systems The positive and negative as per HPI. Past Medical History Past Medical History: No Reported History Additional Past Medical History / Comment(s): broken toe History of Any Multi-Drug Resistant Organisms: None Reported Additional Past Surgical History / Comment(s): septoplasty Past Psychological History: Depression Smoking Status: Vaper Past Alcohol Use History: Occasional Past Drug Use History: None Reported Medications and Allergies Home Medications Medication Instructions Recorded Confirmed Type Cetirizine HCl [Zyrtec] 10 mg PO HS 05/06/24 05/06/24 History Sertraline [Zoloft] 100 mg PO HS 05/06/24 05/06/24 History hydrOXYzine HCL [Atarax] 10 mg PO HS 05/06/24 05/06/24 History Allergies Allergy/AdvReac Type Severity Reaction Status Date / Time peanut AdvReac Nausea & Verified 05/06/24 14:33 Vomiting tuna oil AdvReac Unknown Verified 05/06/24 14:33 Physical Examination - Vital Signs Vital Signs: Vital Signs Temp Pulse Pulse Resp BP BP Pulse Ox 05/07/24 07:00 98.4 F 79 17 130/86 97 05/07/24 02:18 97.8 F 70 18 130/91 98 05/06/24 21:41 98.2 F 85 17 116/69 97 05/06/24 19:24 119/79 Intake and Output 05/07/24 05/07/24 05/07/24 06:59 14:59 22:59 Intake Total 1400 600 Balance 1400 600 Intake: Intake, IV Titration 900 600 Amount Sodium Chloride 0.9% 1, 900 600 000 ml @ 75 mls/hr IV . [id number] [place] Rx#:[id number] Oral 500 Other: # Voids 2 3 Weight 77.111 kg GENERAL: The patient is lying in bed and is not in acute distress. HENT: Supple neck. NEUROLOGICAL: Higher mental function: The patient is awake, alert, oriented to self, place and time. Patient is following commands. No aphasia and no neglect. Cranial nerves: Erythemata over the left eye and has left upper lid edematous. The pupils are round, equal and reactive to light and accommodation. Visual munguia are full to confrontation throughout. Extraocular movement is intact no nystagmus is noted. Facial sensation is normal to touch throughout. The facial strength is normal throughout. Hearing is normal bilaterally to hand rub. Tongue is midline and moved [id number] without any difficulty. No dysarthria is noted. Shoulder shrug is normal bilaterally. Motor: The strength is 5 over 5 throughout. Normal tone and bulk. Cerebellum: Normal finger to nose heel to chin bilaterally. Sensation: Sensation is normal to touch throughout. Reflexes (right/left):2+ throughout. Plantars are downgoing bilaterally. Results - Laboratory Findings CBC and BMP: 05/07/24 01:14 05/07/24 01:17 Abnormal Lab Findings: Abnormal Labs 05/06/24 05/07/24 10:35 01:17 Sodium 136 L 134 L Glucose 113 H Assessment and Plan Assessment: This is a 38-year-old woman who presents our department because of worsening of headache with swelling of the left eyelid, erythema of the left eye and some nausea. She stated that she has been having headache for 2 weeks and she was eval by urgent care as an outpatient as well as seen at [place] and pharmacy [facility] health and was notified she had sinusitis and was given antibiotic and she took 6 out of 6 days of antibiotic without any relief and feels worsening of the headache. Cephalgia headache with erythema of the eye, edema of the left eyelid upper port ion of the periorbital for the past 2 weeks rule out sinus thrombosis vs trigeminal autonomic cephalgia History of depression Vapes Alcohol use Plan: I ordered MRI of the brain with and without, MR angiography of the head, MRV head. I ordered TSH, vitamin B12. Patient is on Fioricet as needed Patient was started on Tegretol 200 mg 1 tablet twice daily by the ED team. Counseled on cessation of vaping as well as decreasing consumption of alcohol. Denies significant alcohol use daily but might have on the weekends 4- 5 drinks in a day. Defer the rest of the medical management to primary and other specialist Plan is discussed with the patient and her as well as primary team Thank for the consultation. Time with Patient: Greater than 30
[2024-05-07] MEDS: BUTALB/APAP/CAFF 50-325-40MG TAB PO PRN (16:06)
[2024-05-07] MEDS: ACETAMINOPHEN TAB 325 MG TAB PO PRN (21:14)
[2024-05-08] MEDS: KETOROLAC 15 MG/ML 1 ML VIAL IVP STA (06:34)
[2024-05-08] MEDS: HYDROmorphone 0.5 MG/0.5 ML SYRINGE IVP PRN (08:17)
[2024-05-08 12:22] VITALS: BMI 25.8
--- NOTE | 2024-05-08 12:30 | P.PN ---
Subjective Progress Note Date: 05/08/24 History of Presenting Illness: Patient is a pleasant 38-year-old female with a past medical history of depression, nicotine use via vaping, and previous septoplasty. She presented to the emergency department with reports of severe intractable migraine headache. Patient reports symptoms initially began 10 days ago. She reports she was seen and evaluated in the emergency department and diagnosed with a sinus infection and started on Augmentin and discharged home. She reports she followed up outpatient with her PCP and was referred to the ENT. She states after seeing the ENT she was sent back to the emergency department at [facility] and was again instructed that she had a sinus infection and to continue same antibiotic regimen and discharged home. Patient reports initially this headache waxed and waned but over the past 3 to 4 days the symptoms significantly worsened and have become a sharp persistent pain above her left eye accompanied by drooping of her left eyelid, and pink watery left eye. She denies having any visual changes states things are little blurry due to the excess tearing but denies having any double vision, floaters, flashers, or loss of vision. Patient denies having any dizziness, lightheadedness, fevers, chills, chest pain, palpitations, shortness of breath, or experiencing any numb ness/tingling/weakness/swelling in her extremities. Patient does deny chance of and reports having a negative test just 3 days prior. Upon arrival to our facility, patient underwent evaluation in the emergency department. Vital signs upon arrival show blood pressure 135/102, heart rate 74, respiratory rate 20, temp 97.9 F, and SpO2 of 97% on room air. CT brain completed negative for acute intracranial process. Orbital CT with contrast negative showing no suspicious orbital changes by CT criteria, revealing mild right septal deviation with clear paranasal sinuses.. Labs completed and reviewed. CBC unremarkable. BMP normal findings. Lactic acid 1.3. Magnesium 1.8. Liver profile unremarkable. CRP less than 0.5. Influenza A, influenza B, RSV, and COVID PCR negative. Patient started on Tegretol for concerns of trigeminal neuralgia. She was admitted under services with consultation to neurology. Serum hCG was negative. Physical exam: Patient seen and fully evaluated at bedside. She was in a dark room with ice pack on her head and earplugs in place. She continues to report persistent unrelenting headache to left frontal region of her head. She continues to have left eyelid drooping, reddened sclera, and continuous tearing of left eye accompanied by photophobia and phonophobia. She currently denies nausea, reports controlled with current medication regimen with Compazine. Patient reports worsening swelling of left eyelid today along with development of cervical lymph nodes. Vital signs reviewed and stable. General: Nontoxic, no distress and appears stated age. Derm: Skin warm and dry, normal coloration for ethnicity. Head: Atraumatic, normocephalic and symmetric. Eyes: EOM's intact, and anicteric sclera. left eyelid drooping, reddened sclera, and continuous tearing of left eye. Mouth: no lip lesions, mucus membranes moist Cardiovascular: regular rate and rhythm with normal S1S2, no murmur, positive posterior tibial pulses bilaterally, and cap refill < 2 seconds. Lungs: Respirations even, regular, and unlabored on room air. Lungs CTA bilaterally, no rhonchi, no rales, no wheezing, and no accessory muscle usage. Abdominal: soft, nontender to palpation, no guarding, no appreciable organomegaly Ext: ROM intact. No gross muscle atrophy, no edema, no contractures Neuro: Speech clear, face symmetrical and CN II-XII grossly intact with no noted focal neuro deficits Psych: Alert and oriented to person, place, time, and situation. Appropriate and pleasant affect. Assessment and Plan of Care: Intractable migraine with concerns of cluster headache vs trigeminal neuralgia -Symptoms highly concerning for cluster headache versus trigeminal neuralgia as patient has drooping left eyelid, sinus congestion, continuous tearing, and reddened sclera. -Pt to be placed on high flow O2 via NRB at 15 L. -Continue carbamazepine 200 mg twice daily pending further recommendations from neurologist. -Neurology following, discussed plan of care with Dr. Smith patient is awaiting to be taken down for MRI and MRA of brain. -Continue neurochecks every 4 hours. -Symptomatic care and pain management with Zofran 4 mg IVP as needed for nausea or vomiting and Artificial tears 2 drops left eye every 4 hours as needed for dry eyes/irritation. Patient also started on Compazine 10 mg IVP every 6 hours as needed for persistent nausea. -Order placed for one-time dose of Imitrex -Pain management with-Tylenol 650 mg every 6 hours as needed for mild pain/fever, Dilaudid 0.5 mg every 3 hours as needed for moderate pain, and Dila udid 1 mg IVP every 3 hours as needed for severe pain. Depression and anxiety -Continue sertraline 100 mg nightly. Data and imaging reviewed: -Vital signs reviewed and stable. Blood pressure 131/89, heart rate 75, respiratory rate 16, temp 98.1 F, and SpO2 of 97% on room air. -Labs reviewed. CBC unremarkable. BMP showing mild hyponatremia with sodium of 134 and glucose of 113. Magnesium 2.0. CODE STATUS: Full code DVT prophylaxis: Lovenox Anticipated discharge date: Pending clinical course Anticipated discharge place: Home Patient was seen independently by Nurse Practitioner. This document was prepared using [employer] dictation software. Please allow for errors in product marketing engineer while rare they do occur. I reviewed the documentation as provided by the SYDNIE above, who is the original author of this note. I agree with the documented assessment and plan, with the following changes: none Objective - Vital Signs Vital signs: Vital Signs Temp 98.1 F 05/08/24 08:00 Pulse 75 05/08/24 08:00 Resp 16 05/08/24 08:00 BP 131/89 05/08/24 08:00 Pulse Ox 97 05/08/24 08:00 FiO2 Intake & Output 05/07/24 05/08/24 05/08/24 18:59 06:59 18:59 Intake Total 600 2100 Balance 600 2100 Weight 77.111 kg Intake: Intake, IV Titration 600 600 Amount Sodium Chloride 0.9% 1, 600 600 000 ml @ 75 mls/hr IV . [id number] [place] Rx#:[id number] Oral 1500 Other: # Voids 3 3 - Labs CBC & Chem 7: 05/07/24 01:14 05/07/24 01:17
[2024-05-08] MEDS: SENNOSIDES-DOCUSATE SODIUM 1 EACH TAB PO STA (15:00)
[2024-05-08] MEDS: KETOROLAC 15 MG/ML 1 ML VIAL IVP PRN (15:45)
--- NOTE | 2024-05-08 16:33 | P.PN ---
Subjective Progress Note Date: 05/08/24 On follow-up with the patient and patient states she continues to have the headache in the same region and it seems that she is having worsening edema around the left upper eyelid. She feels the headache improved with Dilaudid and Fioricet. Still pending MRI. Otherwise denies any new neurological issues. Objective - Vital Signs Vital signs: Vital Signs Temp 97.6 F 05/08/24 14:00 Pulse 77 05/08/24 14:00 Resp 16 05/08/24 14:00 BP 130/80 05/08/24 14:00 Pulse Ox 95 05/08/24 14:00 FiO2 Intake & Output 05/07/24 05/08/24 05/08/24 18:59 06:59 18:59 Intake Total 600 2100 236 Balance 600 2100 236 Weight 77.111 kg 77.111 kg Intake: Intake, IV Titration 600 600 Amount Sodium Chloride 0.9% 1, 600 600 000 ml @ 75 mls/hr IV . [id number] [place] Rx#:[id number] Oral 1500 236 Other: Voiding Method Toilet # Voids 3 3 3 - Exam GENERAL: The patient is lying in bed and is not in acute distress (just received pain medication). NEUROLOGICAL: Higher mental function: The patient is awake, alert, oriented to self, place and time. Patient is following commands. No aphasia and no neglect. Cranial nerves: Erythemata over the left eye and has left upper lid edematous (today is worse). The pupils are round, equal and reactive to light and accommodation. Visual munguia are full to confrontation throughout. Extraocular movement is intact no nystagmus is noted. Facial sensation is normal to touch throughout. The facial strength is normal throughout. Hearing is normal bilaterally to hand rub. Tongue is midline and moved [id number] without any difficulty. No dysarthria is noted. Shoulder shrug is normal bilaterally. Motor: The strength is 5 over 5 throughout. Normal tone and bulk. Cerebellum: Normal finger to nose heel to chin bilaterally. Sensation: Sensation is normal to touch throughout. Some of the workup during this hospital visit consisted of: Temperature has been normal. CBC with differential is unremarkable ESR is 11. B12 is 364 TSH is 1.790 Plasma lactic acid vein is 1.3. Hcg is not detected. CT of the head is reported as no acute intracranial process. I personally reviewed the CT and agree with the report CT orbit is reported as no suspicious orbital changed by CT - Labs CBC & Chem 7: 05/07/24 01:14 05/07/24 01:17 Assessment and Plan Assessment: This is a 38-year-old woman who presents our department because of worsening of headache with swelling of the left eyelid, erythema of the left eye and some nausea. She stated that she has been having headache for 2 weeks and she was eval by urgent care as an outpatient as well as seen at [facility] and was notified she had sinusitis and was given antibiotic and she took 6 out of 6 days of antibiotic without any relief and feels worsening of the headache. Cephalgia headache with erythema of the eye, edema of the left eyelid upper portion of the periorbital for the past 2 weeks rule out sinus thrombosis vs trigeminal autonomic cephalgia History of depression Vapes Alcohol use Plan: Pending MRI of the brain with and without, MR angiography of the head, MRV head. Notified the nurse to contact MRI team to expedite the process. Patient is on Fioricet as needed Patient was started on Tegretol 200 mg 1 tablet twice daily by the ED team. Counseled on cessation of vaping as well as decreasing consumption of alcohol. Denies significant alcohol use daily but might have on the weekends 4- 5 drinks in a day. Defer the rest of the medical management to primary and other specialist Plan is discussed with the patient and her as well as primary team. Time with Patient: Less than 30
--- NOTE | 2024-05-08 20:13 | P.PN ---
Progress Note - Text Progress Note Date: 05/08/24 I attempted to call the patient but got a hold of the patient's field hockey coach and he stated the patient does not have an [place] number but he will have the patient call me tomorrow at 11:30am and I will discuss the EEG findings.
[2024-05-09 06:25] LABS: HCT 41.6 % (34.0-46.0); HGB 13.5 gm/dL (11.4-16.0); MCH 28.8 pg (25.0-35.0); MCHC 32.5 g/dL (31.0-37.0); MCV 88.6 fL (80.0-100.0); Mean Platelet Volume 6.9; Platelet Count 235 k/uL (150-450); RBC 4.69 m/uL (3.80-5.40); RDW 12.4 % (11.5-15.5); WBC 5.7 k/uL (3.8-10.6)
[2024-05-09 06:35] LABS: ALT 62 U/L (4-34); AST 54 U/L (14-36); African American GFR (CKD) >90 (>60 ml/min/1.73 sqM); Albumin 3.9 g/dL (3.5-5.0); Albumin/Globulin Ratio 1.6; Alkaline Phosphatase 48 U/L (38-126); Anion Gap 2 mmol/L; Blood Urea Nitrogen 6 mg/dL (7-17); Calcium 9.1 mg/dL (8.4-10.2); Carbon Dioxide 28 mmol/L (22-30); Chloride 102 mmol/L (98-107); Globulin 2.4 g/dL; Glucose 85 mg/dL (74-99); Non-African American GFR(CKD) >90 (>60 ml/min/1.73 sqM); Potassium 3.8 mmol/L (3.5-5.1); Sodium 132 mmol/L (137-145); Total Bilirubin 0.5 mg/dL (0.2-1.3); Total Protein 6.3 g/dL (6.3-8.2)
--- NOTE | 2024-05-09 12:44 | MR ---
EXAMINATION TYPE: MR brain wo/w con DATE OF EXAM: 05/09/2024 COMPARISON: CT 05/09/2024 HISTORY: 38-year-old female Cephalgia with ptosis. TECHNIQUE: Multiplanar, multisequence images of the brain and brainstem were acquired before and aft er administration of 7 mL IV Gadavist. Diffusion weighted imaging is performed. FINDINGS: No evidence for acute infarction, hemorrhage, mass, mass effect, midline shift, herniation, effacemen t of basal cisterns, or extra-axial fluid collection. The ventricles and sulci are age-appropriate. Major intracranial flow voids are intact. T2/FLAIR weighted sequences show no white matter signal abnormality. Midline structures demonstrate normal morphology. The craniocervical junction is normal. Post contrast images demonstrate no evidence of pathologic enhancement. Dural venous sinuses are pat ent. Trace mucosal thickening ethmoid air cells. Globes appear intact. Patient's gaze is slightly divergen t which can be seen with strabismus. IMPRESSION: No intracranial abnormality seen. No enhancing lesions or white matter signal changes. Trace mucosal thickening ethmoid air cells. [facility], , 05/09/2024 12:41 PM
--- NOTE | 2024-05-09 12:50 | MR ---
EXAMINATION TYPE: MR MRA/MRV head wo con DATE OF EXAM: 05/09/2024 COMPARISON: MRI brain same day HISTORY: 38-year-old female Cephalgia with ptosis. TECHNIQUE: High-resolution 3-D [id number] imaging of the [place]. Additional time-of-fli ght imaging of the dural venous sinuses. 3-D rotational reconstructions generated on a dedicated [employer] workstation. No IV contrast. FINDINGS: MRA: The bilateral vertebral and basilar arteries as well as the remainder of the posterior circulation so satisfactory flow related enhancement. The bilateral internal carotid arteries remain patent as does the remainder of the anterior circulati on. No significant narrowing or aneurysmal changes identified along the [place]. MRV: The left transverse and left sigmoid sinus are slightly hypoplastic compared to the right side. Findi ngs compatible with anatomic variation. Otherwise, straight sinus, superior sagittal sinus, and inter nal cerebral veins are patent. IMPRESSION: 1. MRA: No large vessel intracranial arterial occlusion, significant stenosis, or aneurysmal change i s seen. 2. MRV: No occlusion of the dural venous sinuses. Anatomic variation with smaller left transverse/sig moid sinuses. [facility], , 05/09/2024 12:48 PM
[2024-05-09] MEDS: ACYCLOVIR SODIUM 750 MG in SODIUM CHLORIDE 0.9% 250 ML IV SCH (13:13)
--- NOTE | 2024-05-09 15:07 | P.PN ---
Subjective Progress Note Date: 05/09/24 I am following up with the patient and she states her headache is controlled with pain medication and currently at 5/10. Denies any nausea or vomiting. Patient has erythema around the left eye and has more appears vesicles over the left V1 V2 distribution and patient was concerned about possible herpes. Denies any focal weakness. Objective - Vital Signs Vital signs: Vital Signs Temp 97.7 F 05/09/24 13:35 Pulse 74 05/09/24 13:35 Resp 17 05/09/24 14:00 BP 133/92 05/09/24 13:35 Pulse Ox 96 05/09/24 13:35 FiO2 Intake & Output 05/08/24 05/09/24 05/09/24 18:59 06:59 18:59 Intake Total 236 318 Balance 236 318 Weight 77.111 kg Intake: Oral 236 318 Other: Voiding Method Toilet Toilet # Voids 3 2 2 # Bowel Movements 0 - Exam GENERAL: The patient is lying in bed and is not in acute distress (just received pain medication). NEUROLOGICAL: Higher mental function: The patient is awake, alert, oriented to self, place and time. Patient is following commands. No aphasia and no neglect. Cranial nerves: More Erythemata over the left eye and has left upper lid edematous. As appears vesicle over the left V1 V2 distribution. Also appears more erythematous over the left side of the face compared to the right. The pupils are round, equal and reactive to light and accommodation. Visual munguia are full to confrontation throughout. Extraocular movement is intact no nystagmus is noted. Facial sensation is normal to touch throughout. The facial strength is normal throughout. Hearing is normal bilaterally to hand rub. Tongue is midline and moved [id number] without any difficulty. No dysarthria is noted. Shoulder shrug is normal bilaterally. Motor: The strength is 5 over 5 throughout. Normal tone and bulk. Cerebellum: Normal finger to nose heel to chin bilaterally. Sensation: Sensation is normal to touch throughout. Some of the workup during this hospital visit consisted of: Temperature has been normal. CBC with differential is unremarkable ESR is 11. B12 is 364 TSH is 1.790 Plasma lactic acid vein is 1.3. Hcg is not detected. CT of the head is reported as no acute intracranial process. I personally reviewed the CT and agree with the report CT orbit is reported as no suspicious orbital changed by CT - Labs CBC & Chem 7: 05/09/24 05:35 05/09/24 05:35 Labs: Abnormal Lab Results - Last 24 Hours (Table) 05/09/24 Range/Units 05:35 Sodium 132 L (137-145) mmol/L BUN 6 L (7-17) mg/dL AST 54 H (14-36) U/L ALT 62 H (4-34) U/L Assessment and Plan Assessment: This is a 38-year-old woman who presents our department because of worsening of headache with swelling of the left eyelid, erythema of the left eye and some nausea. She stated that she has been having headache for 2 weeks and she was eval by urgent care as an outpatient as well as seen at [facility] and was notified she had sinusitis and was given antibiotic and she took 6 out of 6 days of antibiotic without any relief and feels worsening of the headache. Cephalgia headache with erythema of the eye, edema of the left eyelid upper portion and today appears vesicle of the left V1/V2 distribution: Rule out ocular herpes/facial. Also rule out ?sinus thrombosis vs trigeminal autonomic cephalgia History of depression Vapes Alcohol use Plan: Pending MRI of the brain with and without, MR angiography of the head, MRV head: Supple and the primary team spoke with the MRI team and this to be obtained stat. Per the field support technician there is a lot of MRIs pending and she stated that she had stats from a couple days ago is still pending. I ordered herpes simplex 1/2 PCR, syphilis testing, HIV 1 and 2. I consulted infection disease specialist. Patient is on Fioricet as needed Patient was started on Tegretol 200 mg 1 tablet twice daily by the ED team. Counseled on cessation of vaping as well as decreasing consumption of alcohol. Denies significant alcohol use daily but might have on the weekends 4- 5 drinks in a day. Defer the rest of the medical management to primary and other specialist Plan is discussed with the patient and her as well as primary team. Time with Patient: Less than 30
[2024-05-09] MEDS: ONDANSETRON 4 MG/2 ML VIAL IVP PRN (16:42)
--- NOTE | 2024-05-09 18:09 | P.PN ---
Subjective Progress Note Date: 05/09/24 History of Presenting Illness: Patient is a pleasant 38-year-old female with a past medical history of depression, nicotine use via vaping, and previous septoplasty. She presented to the emergency department with reports of severe intractable migraine headache. Patient reports symptoms initially began 10 days ago. She reports she was seen and evaluated in the emergency department and diagnosed with a sinus infection and started on Augmentin and discharged home. She reports she followed up outpatient with her PCP and was referred to the ENT. She states after seeing the ENT she was sent back to the emergency department at [facility] and was again instructed that she had a sinus infection and to continue same antibiotic regimen and discharged home. Patient reports initially this headache waxed and waned but over the past 3 to 4 days the symptoms significantly worsened and have become a sharp persistent pain above her left eye accompanied by drooping of her left eyelid, and pink watery left eye. She denies having any visual changes states things are little blurry due to the excess tearing but denies having any double vision, floaters, flashers, or loss of vision. Patient denies having any dizziness, lightheadedness, fevers, chills, chest pain, palpitations, shortness of breath, or experiencing any numb ness/tingling/weakness/swelling in her extremities. Patient does deny chance of and reports having a negative test just 3 days prior. Upon arrival to our facility, patient underwent evaluation in the emergency department. Vital signs upon arrival show blood pressure 135/102, heart rate 74, respiratory rate 20, temp 97.9 F, and SpO2 of 97% on room air. CT brain completed negative for acute intracranial process. Orbital CT with contrast negative showing no suspicious orbital changes by CT criteria, revealing mild right septal deviation with clear paranasal sinuses.. Labs completed and reviewed. CBC unremarkable. BMP normal findings. Lactic acid 1.3. Magnesium 1.8. Liver profile unremarkable. CRP less than 0.5. Influenza A, influenza B, RSV, and COVID PCR negative. Patient started on Tegretol for concerns of trigeminal neuralgia. She was admitted under services with consultation to neurology. Serum hCG was negative. Physical exam: Patient seen and fully evaluated at bedside. Vital signs reviewed and stable. General: Nontoxic, no distress and appears stated age. Derm: Skin warm and dry, normal coloration for ethnicity. Head: Atraumatic, normocephalic and symmetric. Eyes: EOM's intact, and anicteric sclera. left eyelid drooping, reddened sclera, and continuous tearing of left eye. Mouth: no lip lesions, mucus membranes moist Cardiovascular: regular rate and rhythm with normal S1S2, no murmur, positive posterior tibial pulses bilaterally, and cap refill < 2 seconds. Lungs: Respirations even, regular, and unlabored on room air. Lungs CTA bilaterally, no rhonchi, no rales, no wheezing, and no accessory muscle usage. Abdominal: soft, nontender to palpation, no guarding, no appreciable org anomegaly Ext: ROM intact. No gross muscle atrophy, no edema, no contractures Neuro: Speech clear, face symmetrical and CN II-XII grossly intact with no noted focal neuro deficits Psych: Alert and oriented to person, place, time, and situation. Appropriate and pleasant affect. Assessment and Plan of Care: Patient continues to have persistent unrelenting migraine/headache to the left anterior frontal region of head. Overnight she also developed a vesicular rash, concerning for ocular shingles (as it stays within the dermatome). Infectious Disease consulted. Discussed with neurologist and infectious disease physician in great detail, patient placed in airborne precautions and started on acyclovir 750 mg every 8 hours. Patient also reporting mild blurred vision out of left eye and continues to have scleral redness, swelling and drooping of the left upper lid, and tearing of left eye. In addition patient reports intermittent episodes of nausea and is still requiring 2 separate IV antiemetics to control. Intractable migraine with concerns of cluster headache vs trigeminal neuralgia -Symptoms highly concerning for ocular shingles vs cluster headache vs trigeminal neuralgia as patient has drooping left eyelid, sinus congestion, continuous tearing, and reddened sclera. -Pt to be placed on high flow O2 via NRB at 15 L. -Patient placed in airborne precautions and started on acyclovir 750 mg IVPB every 8 hours. -Continue carbamazepine 200 mg twice daily pending further recommendations from neurologist. -Neurology following, discussed plan of care with Dr. Smith patient is awaiting to be taken down for MRI and MRA of brain this morning. -Infectious disease following, discussed plan of care with Dr. Harkins. -Continue neurochecks every 4 hours. -Symptomatic care and pain management with Zofran 4 mg IVP 6 hours as needed for nausea or vomiting, Compazine 10 mg IVP every 6 hours as needed for persistent nausea uncontrolled by Zofran and Artificial tears 2 drops left eye every 4 hours as needed for dry eyes/irritation. -Pain management with-Tylenol 650 mg every 6 hours as needed for mild pain/fever, Toradol 15 mg IVP as needed for mild to moderate pain, Dilaudid 0.5 mg every 3 hours as needed for moderate pain, and Dilaudid 1 mg IVP every 3 hours as needed for severe pain. -Follow-up on HSV results. -Attempted to place consult to ophthalmology, however no coverage available at this time. Patient will need to follow-up upon discharge with vamp liner. Depression and anxiety -Continue sertraline 100 mg nightly. Data and imaging reviewed: -Vital signs reviewed and stable. Blood pressure 131/90, heart rate 79, respiratory rate 16, temp 98.2 F, and SpO2 of 94% on room air. -Labs reviewed. CBC remains unremarkable. BMP showing mild hyponatremia with sodium of 132 and glucose of 85. Profile showing elevated AST of 54 and ALT of 62. Magnesium 2.0. CODE STATUS: Full code DVT prophylaxis: Lovenox Anticipated discharge date: Pending clinical course Anticipated discharge place: Home Patient was seen independently by Nurse Practitioner. This document was prepared using [employer] dictation software. Please allow for errors in housing director while rare they do occur. Patient was seen independently by Louis Rodarte NP. I agree with the assessment and plan as above. Objective - Vital Signs Vital signs: Vital Signs Temp 98.6 F 05/09/24 01:58 Pulse 82 05/09/24 01:58 Resp 16 05/09/24 01:58 BP 122/86 05/09/24 01:58 Pulse Ox 95 05/09/24 01:58 FiO2 Intake & Output 05/08/24 05/09/24 05/09/24 18:59 06:59 18:59 Intake Total 236 Balance 236 Weight 77.111 kg Intake: Oral 236 Other: Voiding Method Toilet # Voids 3 2 - Labs CBC & Chem 7: 05/14/24 04:56 05/14/24 04:56 Labs: Abnormal Lab Results - Last 24 Hours (Table) 05/09/24 Range/Units 05:35 Sodium 132 L (137-145) mmol/L BUN 6 L (7-17) mg/dL AST 54 H (14-36) U/L ALT 62 H (4-34) U/L
[2024-05-09 19:15] LABS: HIV 2 AB Non-Reactive (Non-Reactive); HIV AB P24 Non-Reactive (Non-Reactive); HIV P24 AG Non-Reactive (Non-Reactive)
--- NOTE | 2024-05-10 08:35 | P.CONS ---
History of Present Illness - Reason for Consult Consult date: 05/09/24 Concern for facial/orbital shingles Requesting physician: Kong Smith - Chief Complaint Left periorbital/facial pain x days - History of Present Illness Patient is a 38-year-old female past medical history significant for depression presenting to the hospital 3 days ago for evaluation of left frontal headache patient describing pain to the left periorbital area that apparently been going on for more than a week or so they was evaluated at multiple location recently seen by ENT who sent the patient to the ER for CT scanning as apparently the patient has been diagnosed with the sinusitis and has been treated with multiple courses of antibiotic patient described the pain to be sharp to throbbing about 9 out of 10 when she came in did have some relief with the pain medication denies having any photophobia nausea but no vomiting no abdominal pain or any diarrhea no fever on presentation to the hospital the patient was afebrile and no fever have been recorded subsequently patient was not tachycardic hypotensive or hypoxic he did have a normal white count creatinine has been normal liver enzymes are normal electrolytes are normal, patient tested negative for influenza RSV and COVID tested negative for HIV patient did have a CT of the brain no acute intracranial process CT of the head and orbit no suspicious orbital changes by CT patient started having a rash to the periorbital area prompting this consultation concern for possible shingles Review of Systems Positive point and negatives has been mentioned in the HPI, complete review of systems was performed and all other systems are negative Past Medical History Past Medical History: No Reported History Additional Past Medical History / Comment(s): broken toe History of Any Multi-Drug Resistant Organisms: None Reported Additional Past Surgical History / Comment(s): septoplasty Past Psychological History: Depression Smoking Status: Vaper Past Alcohol Use History: Occasional Past Drug Use History: None Reported Medications and Allergies Home Medications Medication Instructions Recorded Confirmed Type Cetirizine HCl [Zyrtec] 10 mg PO HS 05/06/24 05/06/24 History Sertraline [Zoloft] 100 mg PO HS 05/06/24 05/06/24 History hydrOXYzine HCL [Atarax] 10 mg PO HS 05/06/24 05/06/24 History Allergies Allergy/AdvReac Type Severity Reaction Status Date / Time peanut AdvReac Nausea & Verified 05/06/24 14:33 Vomiting tuna oil AdvReac Unknown Verified 05/06/24 14:33 Physical Exam Vitals: Vital Signs Temp Pulse Resp BP Pulse Ox 05/09/24 08:00 98.2 F 79 16 130/90 94 L 05/09/24 01:58 98.6 F 82 16 122/86 95 05/08/24 19:31 97.6 F 83 16 133/89 98 05/08/24 17:40 98.1 F 94 16 150/95 98 05/08/24 14:00 97.6 F 77 16 130/80 95 Intake and Output 05/08/24 05/09/24 05/09/24 22:59 06:59 14:59 Intake Total 118 Balance 118 Intake: Oral 118 Other: # Voids 2 2 GENERAL DESCRIPTION: Middle-aged female lying in bed, no distress. No tachypnea or accessory muscle of respiration use. HEENT: Shows Pallor , no scleral icterus. Oral mucous membrane is dry. No pharyngeal erythema or thrush NECK: Trachea central, no thyromegaly. LUNGS: Unlabored breathing. Clear to auscultation anteriorly. No wheeze or crackle. HEART: S1, S2, regular rate and rhythm. No loud murmur ABDOMEN: Soft, no tenderness , guarding or rigidity, no organomegaly EXTREMITIES: No edema of feet. SKIN: Patient did have a left-sided periorbital rash in dermatomal distribution NEUROLOGICAL: The patient is awake, alert, oriented x3, mood and affect normal. Results CBC & Chem 7: 05/09/24 05:35 05/09/24 05:35 Labs: Abnormal Lab Results - Last 24 Hours (Table) 05/09/24 Range/Units 05:35 Sodium 132 L (137-145) mmol/L BUN 6 L (7-17) mg/dL AST 54 H (14-36) U/L ALT 62 H (4-34) U/L Assessment and Plan (1) Shingles Current Visit: Yes Status: Acute Code(s): B02.9 - ZOSTER WITHOUT COMPLICATIONS SNOMED Code(s): 9715847 Plan: 1patient initially presented to hospital with left periorbital pain in this patient now also developing a rash in the distribution of the ophthalmic d ivision of the trigeminal nerve highly compatible with herpes zoster ophthalmicus 2-patient was started on acyclovir 10 mg/kg every 8 hours and consider adding Lyrica for pain control and see clinical response Case was discussed in detail with the TRIMMING MACHINE SET UP OPERATOR for admitting team at the time of evaluation We will follow on clinical condition and cultures to further adjust medication if needed Thank you for this consultation we will follow the patient along with you Dictation was produced using [employer] software. please excuse any grammatical, word or spelling errors. Time with Patient: Greater than 30
[2024-05-10 09:14] LABS: HCT 44.2 % (37.2-46.3); HGB 14.6 g/dL (12.0-15.0); MCH 29.3 pg (27.0-32.0); MCV 88.8 FL (80.0-97.0); Mean Platelet Volume 9.7 FL (9.5-12.2); NRBC Per 100 WBC 0 X 10*3/uL (0.00-0.01); Platelet Count 267 X 10*3/uL (140-440); RBC 4.98 X 10*6/uL (4.10-5.20); RDW 12.4 % (11.5-14.5); WBC 6.25 X 10*3/uL (4.50-10.00)
[2024-05-10 09:16] LABS: ALT 53 U/L (8-44); AST 36 U/L (13-35); Albumin 4.2 g/dL (3.8-4.9); Albumin/Globulin Ratio 1.75 Ratio (1.60-3.17); Alkaline Phosphatase 52 U/L (41-126); BUN/Creat Ratio 5.56 Ratio (12.00-20.00); Calcium 8.9 mg/dL (8.7-10.3); Carbon Dioxide 25.4 mmol/L (21.6-31.8); Chloride 103 mmol/L (96-109); Globulin 2.4 g/dL (1.6-3.3); Glucose 118 mg/dL (70-110); LDH 237 U/L (120-246); Magnesium 2.2 mg/dL (1.5-2.4); Potassium 4.4 mmol/L (3.5-5.5); Sodium 139 mmol/L (135-145); Total Bilirubin 0.3 mg/dL (0.3-1.2); Total Protein 6.6 g/dL (6.2-8.2)
[2024-05-10] MEDS: METOCLOPRAMIDE 5 MG/ML 2 ML VIAL IVP PRN (09:56)
[2024-05-10 10:42] LABS: Erythrocyte Sedimentation Rate 8 mm/Hr (0-20)
[2024-05-10] MEDS: PREGABALIN 25 MG CAP PO SCH (13:52)
[2024-05-10] MEDS: HYDROmorphone 0.5 MG/0.5 ML SYRINGE IVP STA (14:36)
--- NOTE | 2024-05-10 14:59 | P.PN ---
Subjective Progress Note Date: 05/10/24 Principal diagnosis: Reason for follow-up is rash question of herpes zoster Patient is a 38-year-old female past medical history significant for depression presenting to the hospital for left periorbital pain/headache subsequently developing a rash to the periorbital area concerning for possible herpe zoster prompting this consultation. On today's evaluation that is 05/10/2024, patient has been afebrile, patient is breathing comfortably and is currently on room air, patient denies having any significant cough no chest pain, patient did have some nausea but no vomiting pain to the left periorbital area is slightly decreased no further worsening right has been noticing no photophobia. The patient white count 6.25, creatinine 0.9 Objective - Vital Signs Vital signs: Vital Signs Temp 98.7 F 05/10/24 07:25 Pulse 67 05/10/24 07:25 Resp 17 05/10/24 08:00 BP 137/97 05/10/24 07:25 Pulse Ox 98 05/10/24 11:17 FiO2 Intake & Output 05/09/24 05/10/24 05/10/24 18:59 06:59 18:59 Intake Total 318 Balance 318 Intake: Oral 318 Other: Voiding Method Toilet Toilet Toilet # Voids 2 1 # Bowel Movements 0 - Exam GENERAL DESCRIPTION: Middle-age female lying in bed in no distress HEENT; left periorbital rash slightly decreased intensity RESPIRATORY SYSTEM: Unlabored breathing , decreased breath sounds at bases HEART: S1 S2 regular rate and rhythm , ABDOMEN: Soft , no tenderness EXTREMITIES: No edema feet - Labs CBC & Chem 7: 05/10/24 04:48 05/10/24 04:48 Labs: Abnormal Lab Results - Last 24 Hours (Table) 05/10/24 Range/Units 04:48 BUN 5.0 L (9.0-27.0) mg/dL BUN/Creatinine Ratio 5.56 L (12.00-20.00) Ratio Glucose 118 H (70-110) mg/dL AST 36 H (13-35) U/L ALT 53 H (8-44) U/L C-Reactive Protein 1.30 H (0.00-0.80) mg/dL Assessment and Plan (1) Shingles Current Visit: Yes Status: Acute Code(s): B02.9 - ZOSTER WITHOUT COMPLICATIONS SNOMED Code(s): 2438378 Plan: 1patient initially presented to hospital with left periorbital pain in this patient now also developing a rash in the distribution of the ophthalmic division of the trigeminal nerve highly compatible with herpes zoster ophthalmicus 2-patient to continue with acyclovir 10 mg/kg every 8 hours discussed with the NET MVC DEVELOPER for admitting team to add Lyrica for postherpetic neuralgia No need for droplet or airborne isolation as no evidence of multi dermatomal shingles Dictation was produced using [employer] dictation software. please excuse any grammatical, word or spelling errors. Time with Patient: Less than 30
--- NOTE | 2024-05-10 15:09 | P.PCN ---
Date of Procedure: 05/10/24 Procedure(s) Performed: Preoperative diagnosis: 1-intractable headache. 2-shingles Post operative diagnoses: same As preop diagnosis Procedure= lumbar puncture Anesthesia= local infiltration with lidocaine 1% 3 mL. Condition: stable Complication: none. Description of the procedure procedure risk and benefits discussed with the patient and family, consent signed. Patient and the procedure area placed in lateral position ( right side down ), back prepped with chlorhexidine 3 times been local infiltration of the skin and subcutaneous tissue with lidocaine 1% 2 mL for skin and subcu interstitial frustrations at L4 5 levels then 22-gauge Quincke-type needle advanced slowly at L4- 5 interlaminar space there was positive cerebrospinal fluid which was clear, no heme, no paresthesia ,total of 9 ML of clear cerebrospinal fluid collected in 4 different tubes 2-2-1/2 mL in each, then the needle removed and a Band-Aid applied and patient tolerated the procedure well without any complications. Opening pressure= 26 cm of water closing pressure =14 cm of water
[2024-05-10] MEDS: FLUORESCEIN STRIPS 1 MG STRIP LEFT EYE ONE (15:29)
[2024-05-10] MEDS: PROPARACAINE 0.5% OPHTH DROPS 15 ML BTL LEFT EYE STA (15:30)
[2024-05-10 16:11] LABS: Glucose,CSF 46 mg/dL (40-70); Total Protein,CSF 89 mg/dL (12-60)
[2024-05-10 16:35] LABS: Appearance,CSF Hazy; CSF Tube Number 4; Red Blood Cell,CSF 2150 u/L (0-10)
[2024-05-10 16:38] LABS: Nucleated Cells, CSF 186 u/L (0-5)
[2024-05-10 16:43] LABS: Red Blood Cell, CSF Crenated 0 %; Red Blood Cell, CSF Fresh 100 %
[2024-05-10 16:44] LABS: Diff, Total Cells Cnt, CSF 100; Mononuclear WBC,CSF 98 %; Polynuclear WBC,CSF 2 %
--- NOTE | 2024-05-10 17:14 | P.PN ---
Subjective Progress Note Date: 05/10/24 I am following-up with patient and she feels her headache is much better today compared to past two weeks. Denies any new neurological issues. I ordered lumbar puncture and is scheduled for today and I spoke with the pain specialist who performed later today. Patient is in agreement of pursuing with a lumbar puncture. Objective - Vital Signs Vital signs: Vital Signs Temp 98.7 F 05/10/24 07:25 Pulse 95 05/10/24 14:54 Resp 14 05/10/24 14:54 BP 145/92 05/10/24 14:54 Pulse Ox 94 L 05/10/24 14:54 FiO2 Intake & Output 05/09/24 05/10/24 05/10/24 18:59 06:59 18:59 Intake Total 318 100 Balance 318 100 Intake: Oral 318 100 Other: Voiding Method Toilet Toilet Toilet # Voids 2 1 2 # Bowel Movements 0 0 - Exam GENERAL: The patient is lying in bed and is not in acute distress. NEUROLOGICAL: Higher mental function: The patient is awake, alert, oriented to self, place and time. Patient is following commands. No aphasia and no neglect. Cranial nerves: More Erythemata over the left eye and has left upper lid edematous. As appears vesicle over the left V1 V2 distribution. Erythematous over the left side of the face compared to the right. The pupils are round, equal and reactive to light and accommodation. Visual munguia are full to confrontation throughout. Extraocular movement is intact no nystagmus is noted. Facial sensation is normal to touch throughout. The facial strength is normal throughout. Hearing is normal bilaterally to hand rub. Tongue is midline and moved [id number] without any difficulty. No dysarthria is noted. Shoulder shrug is normal bilaterally. Motor: The strength is 5 over 5 throughout. Normal tone and bulk. Cerebellum: Normal finger to nose heel to chin bilaterally. Sensation: Sensation is normal to touch throughout. Some of the workup during this hospital visit consisted of: Temperature has been normal. CBC with differential is unremarkable ESR is 11. Repeat 8. B12 is 364 TSH is 1.790 Plasma lactic acid vein is 1.3. Hcg is not detected. HSV 1/2 DNA PCR HIV is non reactive SARS-CoV-2 PCR and RSV and not detected Treponema Ab nonreactive CT of the head is reported as no acute intracranial process. I personally reviewed the CT and agree with the report CT orbit is reported as no suspicious orbital changed by CT MRI of the brain with and without is reported as no intracranial abnormality seen. No enhancing lesion or white matter signal changes. Trace mucosal thickening ethmoid air cells. I personally reviewed the MRI and agree there is no acute intracranial process. MRA of the head is reported as no large vessel intracranial arterial occlusion, significant stenosis or aneurysm changes seen. MRV of the head is reported as no occlusion of the dural venous sinuses. Anatomic variation with smaller left transverse/sigmoid sinuses. - Labs CBC & Chem 7: 05/10/24 04:48 05/10/24 04:48 Labs: Abnormal Lab Results - Last 24 Hours (Table) 05/10/24 05/10/24 Range/Units 04:48 14:51 BUN 5.0 L (9.0-27.0) mg/dL BUN/Creatinine Ratio 5.56 L (12.00-20.00) Ratio Glucose 118 H (70-110) mg/dL AST 36 H (13-35) U/L ALT 53 H (8-44) U/L C-Reactive Protein 1.30 H (0.00-0.80) mg/dL CSF RBC 2150 H (0-10) u/L CSF Tot Nucleated Cells 186 H* (0-5) u/L CSF Total Protein 89 H (12-60) mg/dL Assessment and Plan Assessment: This is a 38-year-old woman who presents our department because of worsening of headache with swelling of the left eyelid, erythema of the left eye and some nausea. She stated that she has been having headache for 2 weeks and she was eval by urgent care as an outpatient as well as seen at [place] [facility] and was notified she had sinusitis and was given antibiotic and she took 6 out of 6 days of antibiotic without any relief and feels worsening of the headache. Cephalgia headache with erythema of the eye, edema of the left eyelid upper portion and today appears vesicle of the left V1/V2 distribution. Patient has been afebrile with norml wbc.: Rule out ocular herpes/facial. MRI Brain, MRA head and MRV are unremarakble for stroke, thrombosis or mass---today she feels headache is drastically better. History of depression Vapes Alcohol use Plan: She is on Acyclovir 750mg IV every 8 hours. Today she is schedule for Lumbar puncture to rule out any [employer] infection and obtain opening pressure and closing pressure. She was notified of side-effects of lumbar puncture and agree with pursuing it. Infection disease is consulted. Patient is on Fioricet as needed Patient was started on Tegretol 200 mg 1 tablet twice daily by the ED team. Defer the rest of the medical management to primary and other specialist Plan is discussed with the patient and her as well as primary team nurse practioner. Time with Patient: Less than 30
--- NOTE | 2024-05-10 18:24 | P.PN ---
Subjective Progress Note Date: 05/10/24 Hospital course: Patient is a pleasant 38-year-old female with a past medical history of depression, nicotine use via vaping, and previous septoplasty. She presented to the emergency department with reports of severe intractable migraine headache. Patient reports symptoms initially began 10 days ago. She reports she was seen and evaluated in the emergency department and diagnosed with a sinus infection and started on Augmentin and discharged home. She reports she followed up outpatient with her PCP and was referred to the ENT. She states after seeing the ENT she was sent back to the emergency department at [facility] and was again instructed that she had a sinus infection and to continue same antibiotic regimen and discharged home. Patient reports initially this headache waxed and waned but over the past 3 to 4 days the symptoms significantly worsened and have become a sharp persistent pain above her left eye accompanied by drooping of her left eyelid, and pink watery left eye. She denies having any visual changes states things are little blurry due to the excess tearing but denies having any double vision, floaters, flashers, or loss of vision. Patient denies having any dizziness, lightheadedness, fevers, chills, chest pain, palpitations, shortness of breath, or experiencing any numbness/tingling/ weakness/swelling in her extremities. Patient does deny chance of and reports having a negative test just 3 days prior. Upon arrival to our facility, patient underwent evaluation in the emergency department. Vital signs upon arrival show blood pressure 135/102, heart rate 74, respiratory rate 20, temp 97.9 F, and SpO2 of 97% on room air. CT brain completed negative for acu te intracranial process. Orbital CT with contrast negative showing no suspicious orbital changes by CT criteria, revealing mild right septal deviation with clear paranasal sinuses.. Labs completed and reviewed. CBC unremarkable. BMP normal findings. Lactic acid 1.3. Magnesium 1.8. Liver profile unremarkable. CRP less than 0.5. Influenza A, influenza B, RSV, and COVID PCR negative. Patient started on Tegretol for concerns of trigeminal neuralgia. She was admitted under services with consultation to neurology. Serum hCG was negative. Physical exam: Patient seen and fully evaluated at bedside. She continues to have persistent headache states that is slightly better controlled today than yesterday. Nausea persists as well, additional antiemetic added onto current medication regimen. Patient now receiving Compazine, Zofran, and Reglan. She continues to report mild blurring out of left eye but denies having any double vision, floaters, flashing lights or any other complaints at this time. Vital signs reviewed and stable. General: Nontoxic, no distress and appears stated age. Derm: Skin warm and dry, normal coloration for ethnicity. Head: Atraumatic, normocephalic and symmetric. Eyes: EOM's intact, and anicteric sclera. left eyelid drooping, reddened sclera, and continuous tearing of left eye. Mouth: no lip lesions, mucus membranes moist Cardiovascular: regular rate and rhythm with normal S1S2, no murmur, positive posterior tibial pulses bilaterally, and cap refill < 2 seconds. Lungs: Respirations even, regular, and unlabored on room air. Lungs CTA bilaterally, no rhonchi, no rales, no wheezing, and no accessory muscle usage. Abdominal: soft, nontender to palpation, no guarding, no appreciable organomegaly Ext: ROM intact. No gross muscle atrophy, no edema, no contractures Neuro: Speech clear, face symmetrical and CN II-XII grossly intact with no noted focal neuro deficits Psych: Alert and oriented to person, place, time, and situation. Appropriate and pleasant affect. Assessment and Plan of Care: Zoster Ophthalmicus -Continue acyclovir 750 mg IVPB every 8 hours -Called and discussed case with hebrew cantor, and pt to continue artificial tears and treatment with acyclovir and follow up in their office day after discharge. If any visual changes or new complaints, hebrew cantor to be notified immidiately. -Avendaño light examination was completed of the left eye using fluorescein dye. No ulcerations or abrasions noted. -Patient started on Lyrica 5 mg 3 times daily. -Continue symptomatic care and pain management with artificial tears 2 drops every 4 hours as needed for irritation. Intractable migraine with concerns of cluster headache vs trigeminal neuralgia -Symptoms highly concerning for ocular shingles vs cluster headache vs trigeminal neuralgia as patient has drooping left eyelid, sinus congestion, continuous tearing, and reddened sclera. -Patient received high flow oxygen, no improvement in pain/discomfort. -Neurology consulted anesthesia for LP, to be completed this afternoon. -Continue maintain airborne precautions. -Patient started on acyclovir 750 mg IVPB every 8 hours. -Continue carbamazepine 200 mg twice daily pending further recommendations from neurologist. -Neurology following, discussed plan of care with Dr. Smith and he is recommending LP for opening and closing pressures, fluid analysis and cultures. -Infectious disease following, discussed plan of care with Dr. Harkins. -Continue neurochecks every 4 hours. -Symptomatic care and pain management with Zofran 4 mg IVP 6 hours as needed for nausea or vomiting, Compazine 10 mg IVP every 6 hours as needed for persistent nausea uncontrolled by Zofran and Artificial tears 2 drops left eye every 4 hours as needed for dry eyes/irritation. -Pain management with-Tylenol 650 mg every 6 hours as needed for mild pain/fever, Toradol 15 mg IVP as needed for mild to moderate pain, Dilaudid 0.5 mg every 3 hours as needed for moderate pain, and Dilaudid 1 mg IVP every 3 hours as needed for severe pain. Depression and anxiety -Continue sertraline 100 mg nightly. Data and imaging reviewed: -Vital signs reviewed and stable. Blood pressure 137/97, heart rate 67, respiratory rate 17, temp 98.7 F, and SpO2 of 95% on room air. -Labs reviewed. CBC and BMP unremarkable. Blood glucose 118. Magnesium 2.2. Liver profile showing elevated AST of 36 and ALT of 53 otherwise normal findings. LDH normal findings at 237. CRP elevated at 1.30. -HSV 1 and 2 resulting not detected. -Awaiting CSF fluid results. CODE STATUS: Full code DVT prophylaxis: Lovenox Anticipated discharge date: Pending clinical course. Anticipated discharge place: Home Patient was seen independently by Nurse Practitioner. This document was prepared using [employer] dictation software. Please allow for errors in truck terminal manager while rare they do occur. Patient was seen independently by Louis Rodarte NP. I agree with the assessment and plan as above. Objective - Vital Signs Vital signs: Vital Signs Temp 98.7 F 05/10/24 07:25 Pulse 67 05/10/24 07:25 Resp 17 05/10/24 07:25 BP 137/97 05/10/24 07:25 Pulse Ox 95 05/10/24 07:25 FiO2 Intake & Output 05/09/24 05/10/24 05/10/24 18:59 06:59 18:59 Intake Total 318 Balance 318 Intake: Oral 318 Other: Voiding Method Toilet Toilet # Voids 2 1 # Bowel Movements 0 - Labs CBC & Chem 7: 05/14/24 04:56 05/14/24 04:56 Labs: Abnormal Lab Results - Last 24 Hours (Table) 05/10/24 Range/Units 04:48 BUN 5.0 L (9.0-27.0) mg/dL BUN/Creatinine Ratio 5.56 L (12.00-20.00) Ratio Glucose 118 H (70-110) mg/dL AST 36 H (13-35) U/L ALT 53 H (8-44) U/L C-Reactive Protein 1.30 H (0.00-0.80) mg/dL
[2024-05-11] MEDS: hydrALAZINE HCL 25 MG TAB PO STA (04:16)
[2024-05-11] MEDS: CAFFEINE CITRATE 60 MG/3 ML VIAL IV ONE (10:39)
[2024-05-11] MEDS: PREGABALIN 25 MG CAP PO SCH (13:21)
--- NOTE | 2024-05-11 14:15 | P.PN ---
Subjective Progress Note Date: 05/11/24 Hospital Course: Patient is a pleasant 38-year-old female with a past medical history of depres emmanuel, nicotine use via vaping, and previous septoplasty. She presented to the emergency department with reports of severe intractable migraine headache. Patient reports symptoms initially began 10 days ago. She reports she was seen and evaluated in the emergency department and diagnosed with a sinus infection and started on Augmentin and discharged home. She reports she followed up outpatient with her PCP and was referred to the ENT. She states after seeing the ENT she was sent back to the emergency department at [facility] and was again instructed that she had a sinus infection and to continue same antibiotic regimen and discharged home. Patient reports initially this h eadache waxed and waned but over the past 3 to 4 days the symptoms significantly worsened and have become a sharp persistent pain above her left eye accompanied by drooping of her left eyelid, and pink watery left eye. She denies having any visual changes states things are little blurry due to the excess tearing but denies having any double vision, floaters, flashers, or loss of vision. Patient denies having any dizziness, lightheadedness, fevers, chills, chest pain, palpitations, shortness of breath, or experiencing any numbness/tingling/weakness/swelling in her extremities. Patient does deny chance of and reports having a negative test just 3 days prior. Upon arrival to our facility, patient underwent evaluation in the emergency department. Vital signs upon arrival show blood pressure 135/102, heart rate 74, respiratory rate 20, temp 97.9 F, and SpO2 of 97% on room air. CT brain completed negative for acute intracranial process. Orbital CT with contrast negative showing no suspicious orbital changes by CT criteria, revealing mild right septal deviation with clear paranasal sinuses.. Labs completed and reviewed. CBC unremarkable. BMP normal findings. Lactic acid 1.3. Magnesium 1.8. Liver profile unremarkable. CRP less than 0.5. Influenza A, influenza B, RSV, and COVID PCR negative. Patient started on Tegretol for concerns of trigeminal neuralgia. She was admitted under services with consultation to neurology. Serum hCG was negative. Brain MRI did not show any acute process. Brain MRA did not show any acute process. Patient later dev eloped vesicular lesions around left eye. Ophthalmology was also contacted. Patient started on acyclovir IV for zoster ophthalmicus. LP was done which was consistent with viral meningitis. Subjective: Patient seen and examined at bedside. No acute events overnight. Pertinent positives and negatives as discussed above, a complete review of systems was performed and all other systems are negative. Vitals Signs Reviewed. General: Nontoxic, no distress, appears at stated age Derm: Warm, dry Head: Atraumatic, normocephalic, symmetric Eyes: EOMI, no lid lag, anicteric sclera Mouth: No lip lesion, mucus membranes moist Cardiovascular: S1S2 reg, no murmur Lungs: CTA bilateral, no rhonchi, no rales, no accessory muscle use Abdominal: Soft, nontender to palpation, no guarding, no appreciable organomegaly Ext: No gross muscle atrophy, no edema, no contractures Neuro: CN II-XI grossly intact, no focal neuro deficits Psych: Alert, oriented, appropriate affect Data Reviewed Today: Pertinent Labs: CSF RBC 2150, total nucleated cells 186, mononuclear WBCs 98%, total protein 89, glucose 46 Imaging: No new imaging Assessment and Plan: Zoster Ophthalmicus Viral meningitis Intractable headache -Continue acyclovir 750 mg IVPB every 8 hours -Outpatient follow-up with ophthalmology, unless patient has acute vision changes, then will need inpatient ophthalmology consultation -Discussed management with neurology, also started on caffeine IV, Lyrica increased to 50 twice daily -Continue normal saline 75 cc an hour -ID following -Pain control with Fioricet every 4 hours as needed, Tylenol 650 every 6 hours as needed, IV Dilaudid 0.5 mg every 3 hours as needed, 1 mg IV every 3 hours as needed, monitor for sedation, Toradol 15 IV every 6 hours as needed -Reglan 10 mg IV every 6 hours as needed, Zofran 4 mg IV every 6 hours as needed, Compazine 10 mg IV every 6 hours as needed for nausea vomiting -Tegretol discontinued Depression and anxiety -Continue sertraline 100 mg nightly and hydroxyzine 10 nightly DVT ppx: Lovenox Code status: Full code Anticipated discharge place: Pending clinical course Anticipated discharge time: Pending clinical course Objective - Vital Signs Vital signs: Vital Signs Temp 98.4 F 05/11/24 08:00 Pulse 95 05/11/24 08:00 Resp 16 05/11/24 08:00 BP 168/107 05/11/24 08:00 Pulse Ox 99 05/11/24 08:00 FiO2 Intake & Output 05/10/24 05/11/24 05/11/24 18:59 06:59 18:59 Intake Total 100 Balance 100 Intake: Oral 100 Other: Voiding Method Toilet Toilet # Voids 2 1 1 # Bowel Movements 0 - Labs CBC & Chem 7: 05/10/24 04:48 05/10/24 04:48 Labs: Abnormal Lab Results - Last 24 Hours (Table) 05/10/24 Range/Units 14:51 CSF RBC 2150 H (0-10) u/L CSF Tot Nucleated Cells 186 H* (0-5) u/L CSF Total Protein 89 H (12-60) mg/dL Microbiology - Last 24 Hours (Table) 05/10/24 14:51 CSF Gram Stain - Preliminary Cerebral Spinal Fluid
--- NOTE | 2024-05-11 15:25 | P.PN ---
Subjective Progress Note Date: 05/11/24 I am following-up with patient and she is having a different pain compared to yesterday since lumbar puncture. She feels pain is travelling down the spine and denies any new focal deficits. She denies any vomiting. She continues to have headache and feels worse today. Objective - Vital Signs Vital signs: Vital Signs Temp 98.4 F 05/11/24 08:00 Pulse 95 05/11/24 08:00 Resp 16 05/11/24 14:00 BP 168/107 05/11/24 08:00 Pulse Ox 99 05/11/24 08:00 FiO2 Intake & Output 05/10/24 05/11/24 05/11/24 18:59 06:59 18:59 Intake Total 100 120 Balance 100 120 Intake: Oral 100 120 Other: Voiding Method Toilet Toilet # Voids 2 1 1 # Bowel Movements 0 - Exam GENERAL: The patient is lying in bed and is not in acute distress. NEUROLOGICAL: Higher mental function: The patient is awake, alert, oriented to self, place and time. Patient is following commands. No aphasia and no neglect. Cranial nerves: More Erythemata over the left eye and has left upper lid edematous. As appears vesicle over the left V1 V2 distribution. Erythematous over the left side of the face compared to the right. The pupils are round, equal and reactive to light and accommodation. Visual munguia are full to confrontation throughout. Extraocular movement is intact no nystagmus is noted. Facial sensation is normal to touch throughout. The facial strength is normal throughout. Hearing is normal bilaterally to hand rub. Tongue is midline and moved [id number] without any difficulty. No dysarthria is noted. Shoulder shrug is normal bilaterally. Motor: The strength is 5 over 5 throughout. Normal tone and bulk. Cerebellum: Normal finger to nose heel to chin bilaterally. Sensation: Sensation is normal to touch throughout. Some of the workup during this hospital visit consisted of: Temperature has been normal. CBC with differential is unremarkable ESR is 11. Repeat 8. B12 is 364 TSH is 1.790 Plasma lactic acid vein is 1.3. Hcg is not detected. HSV 1/2 DNA PCR HIV is non reactive SARS-CoV-2 PCR and RSV and not detected Treponema Ab nonreactive CT of the head is reported as no acute intracranial process. I personally reviewed the CT and agree with the report CT orbit is reported as no suspicious orbital changed by CT MRI of the brain with and without is reported as no intracranial abnormality seen. No enhancing lesion or white matter signal changes. Trace mucosal thickening ethmoid air cells. I personally reviewed the MRI and agree there is no acute intracranial process. MRA of the head is reported as no large vessel intracranial arterial occlusion, significant stenosis or aneurysm changes seen. MRV of the head is reported as no occlusion of the dural venous sinuses. Anatomic variation with smaller left transverse/sigmoid sinuses. CSF: pink, rbc 2150, total nucleated cells 186, monnuclear wbc 98%, glucose 46, protein 89. Opening pressure of 26cmg water and closing 14cm water. 9ml csf fluid collected. CSF culture: many polymorphonuclear leukocytes, no organisms. - Labs CBC & Chem 7: 05/10/24 04:48 05/10/24 04:48 Labs: Abnormal Lab Results - Last 24 Hours (Table) 05/10/24 05/10/24 Range/Units 14:51 14:51 CSF RBC 2150 H (0-10) u/L CSF Tot Nucleated Cells 186 H* (0-5) u/L CSF Total Protein 89 H (12-60) mg/dL VZV DNA (PCR) DETECTED A (Not detected) Microbiology - Last 24 Hours (Table) 05/10/24 14:51 CSF Gram Stain - Preliminary Cerebral Spinal Fluid Assessment and Plan Assessment: This is a 38-year-old woman who presents our department because of worsening of headache with swelling of the left eyelid, erythema of the left eye and some nausea. She stated that she has been having headache for 2 weeks and she was eval by urgent care as an outpatient as well as seen at [place] [facility] and was notified she had sinusitis and was given antibiotic and she took 6 out of 6 days of antibiotic without any relief and feels worsening of the headache. Cephalgia headache with erythema of the eye, edema of the left eyelid upper portion and in past few days vesicle of the left V1/V2 distribution. CSF study: nucleated cells is 186 and rbc 2150 but with correction still has nucleated cells in 180's and is monnuclear wbc predominate: This seems viral meningitis. Patient has been afebrile with norml wbc with slightly elevated opening pressure of 26cm water. MRI Brain, MRA head and MRV are unremarakble f or stroke, thrombosis or mass Worsening headache and different type of headache post lumbar puncture: Seems post dural puncture headache History of depression Vapes Alcohol use Plan: She is on Acyclovir 750mg IV every 8 hours. Pending comprehensive viral panel CSF. Infection disease is on board. For her worsening headache, I gave her one time IV Caffeine 500mg. To continue hydrating her self. Patient is on Fioricet as needed I changed Lyrica from 25mg 1 tab tid to 50mg bid. Patient was started on Tegretol 200 mg 1 tablet twice daily by the ED team and I stopped since this is not Trigeminal neuralgia headache. Defer the rest of the medical management to primary and other specialist Plan is discussed with the patient and her as well as primary team and her nurse. Time with Patient: Less than 30
--- NOTE | 2024-05-11 15:40 | P.PN ---
Subjective Progress Note Date: 05/11/24 Principal diagnosis: Reason for follow-up is rash question of herpes zoster Patient is a 38-year-old female past medical history significant for depression presenting to the hospital for left periorbital pain/headache subsequently developing a rash to the periorbital area concerning for possible herpe zoster prompting this consultation. On today's evaluation that is 05/11/2024, Patient is afebrile this morning patient denies having any chest pain shortness of breath or cough, the patient is currently on room air, patient denies any abdominal pain no diarrhea no n ausea no vomiting, mention headache has slightly improved complaining of mostly lower back pain now. No new lab has been obtained today, patient did have LP completed yesterday which did shows 186 WBC and protein of 18 and glucose was normal also having VZV DNA by PCR Objective - Vital Signs Vital signs: Vital Signs Temp 98.4 F 05/11/24 08:00 Pulse 95 05/11/24 08:00 Resp 16 05/11/24 08:00 BP 168/107 05/11/24 08:00 Pulse Ox 99 05/11/24 08:00 FiO2 Intake & Output 05/10/24 05/11/24 05/11/24 18:59 06:59 18:59 Intake Total 100 Balance 100 Intake: Oral 100 Other: Voiding Method Toilet Toilet # Voids 2 1 1 # Bowel Movements 0 - Exam GENERAL DESCRIPTION: Middle-age female lying in bed in no distress HEENT; left periorbital rash slightly decreased intensity RESPIRATORY SYSTEM: Unlabored breathing , decreased breath sounds at bases HEART: S1 S2 regular rate and rhythm , ABDOMEN: Soft , no tenderness EXTREMITIES: No edema feet - Labs CBC & Chem 7: 05/10/24 04:48 05/10/24 04:48 Labs: Abnormal Lab Results - Last 24 Hours (Table) 05/10/24 Range/Units 14:51 CSF RBC 2150 H (0-10) u/L CSF Tot Nucleated Cells 186 H* (0-5) u/L CSF Total Protein 89 H (12-60) mg/dL Microbiology - Last 24 Hours (Table) 05/10/24 14:51 CSF Gram Stain - Preliminary Cerebral Spinal Fluid Assessment and Plan (1) Shingles Current Visit: Yes Status: Acute Code(s): B02.9 - ZOSTER WITHOUT COMPLICATIONS SNOMED Code(s): 3917677 Plan: 1patient initially presented to hospital with left periorbital pain in this patient now also developing a rash in the distribution of the ophthalmic division of the trigeminal nerve highly compatible with herpes zoster ophthalmicus 2-patient did have LP completed with elevated white count mild elevated protein and now with VZV DNA by PCR positive possible component of zoster encephalitis not excluded, patient is covered with the IV acyclovir to continue and monitor clinical course closely Dictation was produced using [employer] dictation software. please excuse any grammatical, word or spelling errors. Time with Patient: Less than 30
[2024-05-11] MEDS: CAFFEINE-SODIUM BENZOATE 500 MG in SODIUM CHLORIDE 0.9% 1,000 ML IVPB ONE (15:48)
[2024-05-11] MEDS: ENOXAPARIN 40 MG/0.4 ML SYRINGE SQ SCH (16:42)
--- NOTE | 2024-05-12 12:06 | P.PN ---
Subjective Progress Note Date: 05/12/24 Hospital Course: Patient is a pleasant 38-year-old female with a past medical history of depres emmanuel, nicotine use via vaping, and previous septoplasty. She presented to the emergency department with reports of severe intractable migraine headache. Patient reports symptoms initially began 10 days ago. She reports she was seen and evaluated in the emergency department and diagnosed with a sinus infection and started on Augmentin and discharged home. She reports she followed up outpatient with her PCP and was referred to the ENT. She states after seeing the ENT she was sent back to the emergency department at [facility] and was again instructed that she had a sinus infection and to continue same antibiotic regimen and discharged home. Patient reports initially this h eadache waxed and waned but over the past 3 to 4 days the symptoms significantly worsened and have become a sharp persistent pain above her left eye accompanied by drooping of her left eyelid, and pink watery left eye. She denies having any visual changes states things are little blurry due to the excess tearing but denies having any double vision, floaters, flashers, or loss of vision. Patient denies having any dizziness, lightheadedness, fevers, chills, chest pain, palpitations, shortness of breath, or experiencing any numbness/tingling/weakness/swelling in her extremities. Patient does deny chance of and reports having a negative test just 3 days prior. Upon arrival to our facility, patient underwent evaluation in the emergency department. Vital signs upon arrival show blood pressure 135/102, heart rate 74, respiratory rate 20, temp 97.9 F, and SpO2 of 97% on room air. CT brain completed negative for acute intracranial process. Orbital CT with contrast negative showing no suspicious orbital changes by CT criteria, revealing mild right septal deviation with clear paranasal sinuses.. Labs completed and reviewed. CBC unremarkable. BMP normal findings. Lactic acid 1.3. Magnesium 1.8. Liver profile unremarkable. CRP less than 0.5. Influenza A, influenza B, RSV, and COVID PCR negative. Patient started on Tegretol for concerns of trigeminal neuralgia. She was admitted under services with consultation to neurology. Serum hCG was negative. Brain MRI did not show any acute process. Brain MRA did not show any acute process. Patient later dev eloped vesicular lesions around left eye. Ophthalmology was also contacted. Patient started on acyclovir IV for zoster ophthalmicus. LP was done which was consistent with viral meningitis. Subjective: Patient seen and examined at bedside. No acute events overnight. Headache and blurry vision has improved. Pertinent positives and negatives as discussed above, a complete review of systems was performed and all other systems are negative. Vitals Signs Reviewed. General: Nontoxic, no distress, appears at stated age Derm: Warm, dry Head: Atraumatic, normocephalic, symmetric Eyes: EOMI, no lid lag, anicteric sclera Mouth: No lip lesion, mucus membranes moist Cardiovascular: S1S2 reg, no murmur Lungs: CTA bilateral, no rhonchi, no rales, no accessory muscle use Abdominal: Soft, nontender to palpation, no guarding, no appreciable organomegaly Ext: No gross muscle atrophy, no edema, no contractures Neuro: CN II-XI grossly intact, no focal neuro deficits Psych: Alert, oriented, appropriate affect Data Reviewed Today: Pertinent Labs: CSF VZV DNA positive Imaging: No new imaging Assessment and Plan: Zoster Ophthalmicus Viral meningitis Intractable headache -Continue acyclovir 750 mg IVPB every 8 hours -Outpatient follow-up with ophthalmology, unless patient has acute vision c hanges, then will need inpatient ophthalmology consultation -Neurology following, continue Lyrica 50 twice daily -Continue normal saline 75 cc an hour -ID following -Pain control with Fioricet every 4 hours as needed, Tylenol 650 every 6 hours as needed, IV Dilaudid 0.5 mg every 3 hours as needed, 1 mg IV every 3 hours as needed, monitor for sedation, Toradol 15 IV every 6 hours as needed -Reglan 10 mg IV every 6 hours as needed, Zofran 4 mg IV every 6 hours as needed, Compazine 10 mg IV every 6 hours as needed for nausea vomiting -Tegretol discontinued Depression and anxiety -Continue sertraline 100 mg nightly and hydroxyzine 10 nightly Constipation -MiraLAX 17 g daily, senna 8.6 mg daily DVT ppx: Lovenox Code status: Full code Anticipated discharge place: Pending clinical course Anticipated discharge time: Pending clinical course Objective - Vital Signs Vital signs: Vital Signs Temp 98.5 F 05/12/24 07:59 Pulse 65 05/12/24 07:59 Resp 16 05/12/24 07:59 BP 134/89 05/12/24 07:59 Pulse Ox 97 05/12/24 07:59 FiO2 Intake & Output 05/11/24 05/12/24 05/12/24 18:59 06:59 18:59 Intake Total 600 0 Balance 600 0 Intake: Oral 600 0 Other: Voiding Method Toilet Toilet # Voids 1 2 1 - Labs CBC & Chem 7: 05/10/24 04:48 05/10/24 04:48 Labs: Abnormal Lab Results - Last 24 Hours (Table) 05/10/24 Range/Units 14:51 VZV DNA (PCR) DETECTED A (Not detected) Microbiology - Last 24 Hours (Table) 05/10/24 14:51 CSF Gram Stain - Preliminary Cerebral Spinal Fluid CSF Culture - Preliminary
[2024-05-12] MEDS: polyethylene glycoL 3350 17 GM POWD.PACK PO SCH (12:17)
[2024-05-12] MEDS: SENNOSIDES 8.6 MG TAB PO SCH (12:18)
--- NOTE | 2024-05-12 15:11 | P.PN ---
Subjective Progress Note Date: 05/12/24 Principal diagnosis: Reason for follow-up is rash question of herpes zoster Patient is a 38-year-old female past medical history significant for depression presenting to the hospital for left periorbital pain/headache subsequently developing a rash to the periorbital area concerning for possible herpe zoster prompting this consultation. On today's evaluation that is 05/12/2024,the patient denies any fever or any chills, patient is breathing comfortably on room air, the patient denies chest pain shortness of breath and no significant cough, patient denies abdominal pain, no nausea vomiting or diarrhea. Patient did have improvement in her headache feeling better today. No new lab has been obtained today Objective - Vital Signs Vital signs: Vital Signs Temp 98.4 F 05/12/24 14:00 Pulse 87 05/12/24 14:00 Resp 16 05/12/24 14:00 BP 129/81 05/12/24 14:00 Pulse Ox 98 05/12/24 14:00 FiO2 Intake & Output 05/11/24 05/12/24 05/12/24 18:59 06:59 18:59 Intake Total 600 480 Balance 600 480 Intake: Oral 600 480 Other: Voiding Method Toilet Toilet # Voids 1 2 3 - Exam GENERAL DESCRIPTION: Middle-age female lying in bed in no distress HEENT; left periorbital rash slightly decreased intensity RESPIRATORY SYSTEM: Unlabored breathing , decreased breath sounds at bases HEART: S1 S2 regular rate and rhythm , ABDOMEN: Soft , no tenderness EXTREMITIES: No edema feet - Labs CBC & Chem 7: 05/10/24 04:48 05/10/24 04:48 Labs: Microbiology - Last 24 Hours (Table) 05/10/24 14:51 CSF Gram Stain - Preliminary Cerebral Spinal Fluid CSF Culture - Preliminary Assessment and Plan (1) Shingles Current Visit: Yes Status: Acute Code(s): B02.9 - ZOSTER WITHOUT COMPLICATIONS SNOMED Code(s): 2608762 (2) Encephalitis Current Visit: Yes Status: Acute Code(s): G04.90 - ENCEPHALITIS AND ENCEPHALOMYELITIS, UNSPECIFIED SNOMED Code(s): 83120610 Plan: 1patient initially presented to hospital with left periorbital pain in this patient now also developing a rash in the distribution of the ophthalmic division of the trigeminal nerve highly compatible with herpes zoster ophthalmicus 2-patient did have LP completed with elevated white count mild elevated protein and now with VZV DNA by PCR positive possible component of zoster encephalitis 3patient did have some clinical improvement with acyclovir to continue and monitor clinical course closely Dictation was produced using [employer] dictation software. please excuse any grammatical, word or spelling errors. Time with Patient: Less than 30
--- NOTE | 2024-05-12 15:31 | P.PN ---
Subjective Progress Note Date: 05/12/24 I am following-up with patient and she feels better much better. Feels her swelling on left side is improving. Objective - Vital Signs Vital signs: Vital Signs Temp 98.4 F 05/12/24 14:00 Pulse 87 05/12/24 14:00 Resp 16 05/12/24 14:00 BP 129/81 05/12/24 14:00 Pulse Ox 98 05/12/24 14:00 FiO2 Intake & Output 05/11/24 05/12/24 05/12/24 18:59 06:59 18:59 Intake Total 600 480 Balance 600 480 Intake: Oral 600 480 Other: Voiding Method Toilet Toilet # Voids 1 2 3 - Exam GENERAL: The patient is lying in bed and is not in acute distress. NEUROLOGICAL: Higher mental function: The patient is awake, alert, oriented to self, place and time. Patient is following commands. No aphasia and no neglect. Cranial nerves: More Erythemata over the left eye and has left upper lid edematous. As appears vesicle over the left V1 V2 distribution. Erythematous over the left side of the face compared to the right. The pupils are round, equal and reactive to light and accommodation. Visual munguia are full to confrontation throughout. Extraocular movement is intact no nystagmus is noted. Facial sensation is normal to touch throughout. The facial strength is normal throughout. Hearing is normal bilaterally to hand rub. Tongue is midline and moved [id number] without any difficulty. No dysarthria is noted. Shoulder shrug is normal bilaterally. Motor: The strength is 5 over 5 throughout. Normal tone and bulk. Cerebellum: Normal finger to nose heel to chin bilaterally. Sensation: Sensation is normal to touch throughout. Some of the workup during this hospital visit consisted of: Temperature has been normal. CBC with differential is unremarkable ESR is 11. Repeat 8. B12 is 364 TSH is 1.790 Plasma lactic acid vein is 1.3. Hcg is not detected. HSV 1/2 DNA PCR HIV is non reactive SARS-CoV-2 PCR and RSV and not detected Treponema Ab nonreactive VZV: Detected. CT of the head is reported as no acute intracranial process. I personally reviewed the CT and agree with the report CT orbit is reported as no suspicious orbital changed by CT MRI of the brain with and without is reported as no intracranial abnormality seen. No enhancing lesion or white matter signal changes. Trace mucosal thickening ethmoid air cells. I personally reviewed the MRI and agree there is no acute intracranial process. MRA of the head is reported as no large vessel intracranial arterial occlusion, significant stenosis or aneurysm changes seen. MRV of the head is reported as no occlusion of the dural venous sinuses. Anatomic variation with smaller left transverse/sigmoid sinuses. CSF: pink, rbc 2150, total nucleated cells 186, monnuclear wbc 98%, glucose 46, protein 89. Opening pressure of 26cmg water and closing 14cm water. 9ml csf fl uid collected. CSF culture: many polymorphonuclear leukocytes, no organisms. - Labs CBC & Chem 7: 05/10/24 04:48 05/10/24 04:48 Labs: Microbiology - Last 24 Hours (Table) 05/10/24 14:51 CSF Gram Stain - Preliminary Cerebral Spinal Fluid CSF Culture - Preliminary Assessment and Plan Assessment: This is a 38-year-old woman who presents our department because of worsening of headache with swelling of the left eyelid, erythema of the left eye and some nausea. She stated that she has been having headache for 2 weeks and she was eval by urgent care as an outpatient as well as seen at [place] [facility] and was notified she had sinusitis and was given antibiotic and she took 6 out of 6 days of antibiotic without any relief and feels worsening of the headache. Cephalgia headache with erythema of the eye, edema of the left eyelid upper portion and in past few days vesicle of the left V1/V2 distribution. CSF study: nucleated cells is 186 and rbc 2150 but with correction still has nucleated cells in 180's and is monnuclear wbc predominate: This seems viral meningitis and Herpes zoster Ophthalmicus. VZV is positive. Patient has been afebrile with norml wbc with slightly elevated opening pressure of 26cm water. MRI Brain, MRA head and MRV are unremarakble for stroke, thrombosis or mass. Worsening headache and different type of headache post lumbar puncture: Seems post dural puncture headache--today is better. History of depression Vapes Alcohol use Plan: She is on Acyclovir 750mg IV every 8 hours. Infection disease is on board. Patient is on Fioricet as needed I changed Lyrica from 25mg 1 tab tid to 50mg bid. Patient was started on Tegretol 200 mg 1 tablet twice daily by the ED team and I stopped since this is not Trigeminal neuralgia headache. Defer the rest of the medical management to primary and other specialist Plan is discussed with the patient and her nurse. Will follow-up with patient sporadically. Dr. Curran will resume neurology service on 05/14/24 A.M. Time with Patient: Less than 30
[2024-05-12] MEDS: ARTIFICIAL TEARS-HYPROMELLOSE DROPS 15 ML BTL LEFT EYE PRN (17:30)
[2024-05-12] MEDS: PREGABALIN 50 MG CAP PO SCH (20:27)
[2024-05-12] MEDS: cloNIDine HCL 0.2 MG TAB PO SCH (21:47)
[2024-05-13] MEDS: TOPIRAMATE 25 MG TAB PO SCH (10:15)
[2024-05-13] MEDS: CAFFEINE-SODIUM BENZOATE 500 MG in SODIUM CHLORIDE 0.9% 1,000 ML IVPB ONE (10:41)
--- NOTE | 2024-05-13 12:24 | P.PN ---
Subjective Progress Note Date: 05/13/24 Hospital Course: Patient is a pleasant 38-year-old female with a past medical history of depres emmanuel, nicotine use via vaping, and previous septoplasty. She presented to the emergency department with reports of severe intractable migraine headache. Patient reports symptoms initially began 10 days ago. She reports she was seen and evaluated in the emergency department and diagnosed with a sinus infection and started on Augmentin and discharged home. She reports she followed up outpatient with her PCP and was referred to the ENT. She states after seeing the ENT she was sent back to the emergency department at [facility] and was again instructed that she had a sinus infection and to continue same antibiotic regimen and discharged home. Patient reports initially this h eadache waxed and waned but over the past 3 to 4 days the symptoms significantly worsened and have become a sharp persistent pain above her left eye accompanied by drooping of her left eyelid, and pink watery left eye. She denies having any visual changes states things are little blurry due to the excess tearing but denies having any double vision, floaters, flashers, or loss of vision. Patient denies having any dizziness, lightheadedness, fevers, chills, chest pain, palpitations, shortness of breath, or experiencing any numbness/tingling/weakness/swelling in her extremities. Patient does deny chance of and reports having a negative test just 3 days prior. Upon arrival to our facility, patient underwent evaluation in the emergency department. Vital signs upon arrival show blood pressure 135/102, heart rate 74, respiratory rate 20, temp 97.9 F, and SpO2 of 97% on room air. CT brain completed negative for acute intracranial process. Orbital CT with contrast negative showing no suspicious orbital changes by CT criteria, revealing mild right septal deviation with clear paranasal sinuses.. Labs completed and reviewed. CBC unremarkable. BMP normal findings. Lactic acid 1.3. Magnesium 1.8. Liver profile unremarkable. CRP less than 0.5. Influenza A, influenza B, RSV, and COVID PCR negative. Patient started on Tegretol for concerns of trigeminal neuralgia. She was admitted under services with consultation to neurology. Serum hCG was negative. Brain MRI did not show any acute process. Brain MRA did not show any acute process. Patient later dev eloped vesicular lesions around left eye. Ophthalmology was also contacted. Patient started on acyclovir IV for zoster ophthalmicus. LP was done which was consistent with viral meningitis. Subjective: Patient seen and examined at bedside. No acute events overnight. Headache during admission has not resolved, claims that she has a new headache which is worse with light and sound, more frontal. Pertinent positives and negatives as discussed above, a complete review of systems was performed and all other systems are negative. Vitals Signs Reviewed. General: Nontoxic, no distress, appears at stated age Derm: Warm, dry, left periorbital edema and vesicular lesions improving. Head: Atraumatic, normocephalic, symmetric Eyes: EOMI, no lid lag, anicteric sclera Mouth: No lip lesion, mucus membranes moist Cardiovascular: S1S2 reg, no murmur Lungs: CTA bilateral, no rhonchi, no rales, no accessory muscle use Abdominal: Soft, nontender to palpation, no guarding, no appreciable organome araceli Ext: No gross muscle atrophy, no edema, no contractures Neuro: CN II-XI grossly intact, no focal neuro deficits Psych: Alert, oriented, appropriate affect Data Reviewed Today: Pertinent Labs: No new labs Imaging: No new imaging Assessment and Plan: Zoster Ophthalmicus Viral meningitis Migraine headache -Continue acyclovir 750 mg IVPB every 8 hours -Outpatient follow-up with ophthalmology, unless patient has acute vision changes, then will need inpatient ophthalmology consultation -Continue Lyrica 50 twice daily -Continue normal saline 75 cc an hour -Discussed management with neurology, another dose of 500 mg IV caffeine, also started on topiramate 50 twice daily -ID following -Pain control with Fioricet every 4 hours as needed, Tylenol 650 every 6 hours as needed, IV Dilaudid 0.5 mg every 3 hours as needed, 1 mg IV every 3 hours as needed, monitor for sedation, Toradol 15 IV every 6 hours as needed -Reglan 10 mg IV every 6 hours as needed, Zofran 4 mg IV every 6 hours as neede d, Compazine 10 mg IV every 6 hours as needed for nausea vomiting -Tegretol discontinued Depression and anxiety -Continue sertraline 100 mg nightly and hydroxyzine 10 nightly Constipation -MiraLAX 17 g daily, senna 8.6 mg daily DVT ppx: Lovenox Code status: Full code Anticipated discharge place: Pending clinical course Anticipated discharge time: Pending clinical course Objective - Vital Signs Vital signs: Vital Signs Temp 98.3 F 05/13/24 08:00 Pulse 69 05/13/24 08:00 Resp 16 05/13/24 08:00 BP 123/81 05/13/24 08:00 Pulse Ox 97 05/13/24 08:00 FiO2 Intake & Output 05/12/24 05/13/24 05/13/24 18:59 06:59 18:59 Intake Total 960 Balance 960 Intake: Oral 960 Other: Voiding Method Toilet Toilet Toilet # Voids 3 3 - Labs CBC & Chem 7: 05/10/24 04:48 05/10/24 04:48 Labs: Microbiology - Last 24 Hours (Table) 05/10/24 14:51 CSF Gram Stain - Preliminary Cerebral Spinal Fluid CSF Culture - Preliminary
--- NOTE | 2024-05-13 14:17 | P.PN ---
Subjective Progress Note Date: 05/13/24 I am following up with the patient and she states her headache today is worse. She cannot tolerate the headache today. Denies any focal weakness. Objective - Vital Signs Vital signs: Vital Signs Temp 98.3 F 05/13/24 08:00 Pulse 69 05/13/24 08:00 Resp 16 05/13/24 08:00 BP 123/81 05/13/24 08:00 Pulse Ox 97 05/13/24 08:00 FiO2 Intake & Output 05/12/24 05/13/24 05/13/24 18:59 06:59 18:59 Intake Total 960 Balance 960 Intake: Oral 960 Other: Voiding Method Toilet Toilet Toilet # Voids 3 3 - Exam GENERAL: The patient is lying in bed and is in moderate acute distress. NEUROLOGICAL: Higher mental function: The patient is awake, alert, oriented to self, place and time. Patient is following commands. No aphasia and no neglect. Cranial nerves: More Erythemata over the left eye and has left upper lid edematous. As appears vesicle over the left V1 V2 distribution. Erythematous over the left side of the face compared to the right. The pupils are round, equal and reactive to light and accommodation. Visual munguia are full to confrontation throughout. Extraocular movement is intact no nystagmus is noted. Facial sensation is normal to touch throughout. The facial strength is normal throughout. Hearing is normal bilaterally to hand rub. Tongue is midline and moved [id number] without any difficulty. No dysarthria is noted. Shoulder shrug is normal bilaterally. Motor: The strength is 5 over 5 throughout. Normal tone and bulk. Sensation: Sensation is normal to touch throughout. Some of the workup during this hospital visit consisted of: Temperature has been normal. CBC with differential is unremarkable ESR is 11. Repeat 8. B12 is 364 TSH is 1.790 Plasma lactic acid vein is 1.3. Hcg is not detected. HSV 1/2 DNA PCR HIV is non reactive SARS-CoV-2 PCR and RSV and not detected Treponema Ab nonreactive VZV: Detected. CT of the head is reported as no acute intracranial process. I personally reviewed the CT and agree with the report CT orbit is reported as no suspicious orbital changed by CT MRI of the brain with and without is reported as no intracranial abnormality seen. No enhancing lesion or white matter signal changes. Trace mucosal thickening ethmoid air cells. I personally reviewed the MRI and agree there is no acute intracranial process. MRA of the head is reported as no large vessel intracranial arterial occlusion, significant stenosis or aneurysm changes seen. MRV of the head is reported as no occlusion of the dural venous sinuses. Anatomic variation with smaller left transverse/sigmoid sinuses. CSF: pink, rbc 2150, total nucleated cells 186, monnuclear wbc 98%, glucose 46, protein 89. Opening pressure of 26cmg water and closing 14cm water. 9ml csf fluid collected. CSF culture: many polymorphonuclear leukocytes, no organisms. - Labs CBC & Chem 7: 05/10/24 04:48 05/10/24 04:48 Labs: Microbiology - Last 24 Hours (Table) 05/10/24 14:51 CSF Gram Stain - Preliminary Cerebral Spinal Fluid CSF Culture - Preliminary Assessment and Plan Assessment: This is a 38-year-old woman who presents our department because of worsening of headache with swelling of the left eyelid, erythema of the left eye and some nausea. She stated that she has been having headache for 2 weeks and she was eval by urgent care as an outpatient as well as seen at [place] [facility] and was notified she had sinusitis and was given antibiotic and she took 6 out of 6 days of antibiotic without any relief and feels worsening of the headache. Cephalgia headache with erythema of the eye, edema of the left eyelid upper portion and in past few days vesicle of the left V1/V2 distribution. CSF study: nucleated cells is 186 and rbc 2150 but with correction still has nucleated cells in 180's and is monnuclear wbc predominate: This seems viral meningitis and Herpes zoster Ophthalmicus. VZV is positive. Patient has been afebrile with norml wbc with slightly elevated opening pressure of 26cm water. MRI Brain, MRA head and MRV are unremarakble for stroke, thrombosis or mass. Worsening headache and different type of headache post lumbar puncture: Seems post dural puncture headache--today is better. History of depression Vapes Alcohol use Plan: She is on Acyclovir 750mg IV every 8 hours. For the headache, I have started her on Topamax 50mg bid and notified her of side-effect. I also gave her another IV caffeine dose. Infection disease is on board. Patient is on Fioricet as needed I changed Lyrica from 25mg 1 tab tid to 50mg bid. Patient was started on Tegretol 200 mg 1 tablet twice daily by the ED team and I stopped since this is not Trigeminal neuralgia headache. Defer the rest of the medical management to primary and other specialist Plan is discussed with the patient, her who is at bedside and primary team. Dr. Curran will resume neurology service tomorrow A.M. Time with Patient: Less than 30
[2024-05-14] MEDS: HYDROcodone/APAP 5-325MG 1 EACH TAB PO PRN (02:34)
[2024-05-14 08:44] LABS: Basophils # (A) 0.09 X 10*3/uL (0.00-0.10); Basophils % (A) 1.1 %; Eosinophils # (A) 0.29 X 10*3/uL (0.04-0.35); Eosinophils % (A) 3.4 %; HCT 40.9 % (37.2-46.3); HGB 13.6 g/dL (12.0-15.0); Lymphocytes # (A) 2.54 X 10*3/uL (0.90-5.00); Lymphocytes % (A) 29.8 %; MCH 28.5 pg (27.0-32.0); MCHC 33.3 g/dL (32.0-37.0); MCV 85.6 FL (80.0-97.0); Mean Platelet Volume 9.5 FL (9.5-12.2); Monocytes # (A) 0.79 X 10*3/uL (0.20-1.00); Monocytes % (A) 9.3 %; NRBC Per 100 WBC 0 X 10*3/uL (0.00-0.01); Neutrophils # (A) 4.78 X 10*3/uL (1.80-7.70); Neutrophils % (A) 56.2 %; Platelet Count 282 X 10*3/uL (140-440); RBC 4.78 X 10*6/uL (4.10-5.20); RDW 12.5 % (11.5-14.5); WBC 8.51 X 10*3/uL (4.50-10.00)
[2024-05-14 08:47] LABS: C Reactive Protein <0.30 mg/dL (0.00-0.80)
[2024-05-14 10:04] LABS: ALT 19 U/L (8-44); AST 10 U/L (13-35); Albumin 4.1 g/dL (3.8-4.9); Albumin/Globulin Ratio 1.86 Ratio (1.60-3.17); Alkaline Phosphatase 49 U/L (41-126); BUN/Creat Ratio 8.25 Ratio (12.00-20.00); Blood Urea Nitrogen 6.6 mg/dL (9.0-27.0); Calcium 8.8 mg/dL (8.7-10.3); Carbon Dioxide 22.9 mmol/L (21.6-31.8); Chloride 106 mmol/L (96-109); Globulin 2.2 g/dL (1.6-3.3); Glucose 88 mg/dL (70-110); Sodium 139 mmol/L (135-145); Total Bilirubin 0.2 mg/dL (0.3-1.2); Total Protein 6.3 g/dL (6.2-8.2)
--- NOTE | 2024-05-14 11:39 | P.PN ---
Subjective Progress Note Date: 05/14/24 Hospital Course: Patient is a pleasant 38-year-old female with a past medical history of depres emmanuel, nicotine use via vaping, and previous septoplasty. She presented to the emergency department with reports of severe intractable migraine headache. Patient reports symptoms initially began 10 days ago. She reports she was seen and evaluated in the emergency department and diagnosed with a sinus infection and started on Augmentin and discharged home. She reports she followed up outpatient with her PCP and was referred to the ENT. She states after seeing the ENT she was sent back to the emergency department at [facility] and was again instructed that she had a sinus infection and to continue same antibiotic regimen and discharged home. Patient reports initially this h eadache waxed and waned but over the past 3 to 4 days the symptoms significantly worsened and have become a sharp persistent pain above her left eye accompanied by drooping of her left eyelid, and pink watery left eye. She denies having any visual changes states things are little blurry due to the excess tearing but denies having any double vision, floaters, flashers, or loss of vision. Patient denies having any dizziness, lightheadedness, fevers, chills, chest pain, palpitations, shortness of breath, or experiencing any numbness/tingling/weakness/swelling in her extremities. Patient does deny chance of and reports having a negative test just 3 days prior. Upon arrival to our facility, patient underwent evaluation in the emergency department. Vital signs upon arrival show blood pressure 135/102, heart rate 74, respiratory rate 20, temp 97.9 F, and SpO2 of 97% on room air. CT brain completed negative for acute intracranial process. Orbital CT with contrast negative showing no suspicious orbital changes by CT criteria, revealing mild right septal deviation with clear paranasal sinuses.. Labs completed and reviewed. CBC unremarkable. BMP normal findings. Lactic acid 1.3. Magnesium 1.8. Liver profile unremarkable. CRP less than 0.5. Influenza A, influenza B, RSV, and COVID PCR negative. Patient started on Tegretol for concerns of trigeminal neuralgia. She was admitted under services with consultation to neurology. Serum hCG was negative. Brain MRI did not show any acute process. Brain MRA did not show any acute process. Patient later dev eloped vesicular lesions around left eye. Ophthalmology was also contacted. Patient started on acyclovir IV for zoster ophthalmicus. LP was done which was consistent with viral meningitis. Subjective: Patient seen and examined at bedside. No acute events overnight. Still having severe headaches. She did not take Topamax due to fear of side effects. Pertinent positives and negatives as discussed above, a complete review of systems was performed and all other systems are negative. Vitals Signs Reviewed. General: Nontoxic, no distress, appears at stated age Derm: Warm, dry, left periorbital edema and vesicular lesions improving. Head: Atraumatic, normocephalic, symmetric Eyes: EOMI, no lid lag, anicteric sclera Mouth: No lip lesion, mucus membranes moist Cardiovascular: S1S2 reg, no murmur Lungs: CTA bilateral, no rhonchi, no rales, no accessory muscle use Abdominal: Soft, nontender to palpation, no guarding, no appreciable organomegaly Ext: No gross muscle atrophy, no edema, no contractures Neuro: CN II-XI grossly intact, no focal neuro deficits Psych: Alert, oriented, appropriate affect Data Reviewed Today: Pertinent Labs: WBC 8.54, hemoglobin 13.6, sodium 139, creatinine 0.8 Imaging: No new imaging Assessment and Plan: Zoster Ophthalmicus Viral meningitis Migraine headache -Continue acyclovir 750 mg IVPB every 8 hours -Outpatient follow-up with ophthalmology, unless patient has acute vision changes, then will need inpatient ophthalmology consultation -Continue Lyrica 50 twice daily -Continue normal saline 75 cc an hour -Neurology following, will patient was started on topiramate 50 twice daily which she did not take yesterday, urged patient to try taking topiramate to see if it would help resolve her headaches -ID following -Pain control with Fioricet every 4 hours as needed, Tylenol 650 every 6 hours as needed, IV Dilaudid 0.5 mg every 3 hours as needed, 1 mg IV every 3 hours as needed, monitor for sedation, Toradol 15 IV every 6 hours as needed -Reglan 10 mg IV every 6 hours as needed, Zofran 4 mg IV every 6 hours as needed, Compazine 10 mg IV every 6 hours as needed for nausea vomiting -Tegretol discontinued Depression and anxiety -Continue sertraline 100 mg nightly and hydroxyzine 10 nightly Constipation -MiraLAX 17 g daily, senna 8.6 mg daily DVT ppx: Lovenox Code status: Full code Anticipated discharge place: Pending clinical course Anticipated discharge time: Pending clinical course Objective - Vital Signs Vital signs: Vital Signs Temp 98.3 F 05/14/24 08:00 Pulse 60 05/14/24 08:00 Resp 17 05/14/24 08:00 BP 125/80 05/14/24 08:00 Pulse Ox 97 05/14/24 08:00 FiO2 Intake & Output 05/13/24 05/14/24 05/14/24 18:59 06:59 18:59 Intake Total 480 480 118 Balance 480 480 118 Intake: Oral 480 480 118 Other: Voiding Method Toilet Toilet Toilet # Voids 5 3 - Labs CBC & Chem 7: 05/14/24 04:56 05/14/24 04:56 Labs: Abnormal Lab Results - Last 24 Hours (Table) 05/14/24 Range/Units 04:56 BUN 6.6 L (9.0-27.0) mg/dL BUN/Creatinine Ratio 8.25 L (12.00-20.00) Ratio Total Bilirubin 0.2 L (0.3-1.2) mg/dL AST 10 L (13-35) U/L Microbiology - Last 24 Hours (Table) 05/10/24 14:51 CSF Gram Stain - Preliminary Cerebral Spinal Fluid CSF Culture - Preliminary
--- NOTE | 2024-05-14 14:21 | P.PN ---
Subjective Progress Note Date: 05/13/24 Principal diagnosis: Reason for follow-up is rash question of herpes zoster Patient is a 38-year-old female past medical history significant for depression presenting to the hospital for left periorbital pain/headache subsequently developing a rash to the periorbital area concerning for possible herpe zoster prompting this consultation. On today's evaluation that is 05/13/2024,the patient remains to be afebrile, patient is on room air not requiring supplemental oxygen and denies any shortness of breath no chest pain or cough.Patient denies having any nausea or vomiting, no abdominal pain and no diarrhea, patient is complaining of more headache today neurology did adjust some of her pain medication. No new lab has been obtained today Objective - Vital Signs Vital signs: Vital Signs Temp 98.1 F 05/13/24 14:00 Pulse 67 05/13/24 14:00 Resp 16 05/13/24 14:00 BP 142/91 05/13/24 14:00 Pulse Ox 99 05/13/24 14:00 FiO2 Intake & Output 05/12/24 05/13/24 05/13/24 18:59 06:59 18:59 Intake Total 960 480 Balance 960 480 Intake: Oral 960 480 Other: Voiding Method Toilet Toilet Toilet # Voids 3 3 5 - Exam GENERAL DESCRIPTION: Middle-age female lying in bed in no distress HEENT; left periorbital rash slightly decreased intensity RESPIRATORY SYSTEM: Unlabored breathing , decreased breath sounds at bases HEART: S1 S2 regular rate and rhythm , ABDOMEN: Soft , no tenderness EXTREMITIES: No edema feet - Labs CBC & Chem 7: 05/10/24 04:48 05/10/24 04:48 Labs: Microbiology - Last 24 Hours (Table) 05/10/24 14:51 CSF Gram Stain - Preliminary Cerebral Spinal Fluid CSF Culture - Preliminary Assessment and Plan (1) Shingles Current Visit: Yes Status: Acute Code(s): B02.9 - ZOSTER WITHOUT COMPLICATIONS SNOMED Code(s): 8854678 (2) Encephalitis Current Visit: Yes Status: Acute Code(s): G04.90 - ENCEPHALITIS AND ENCEPHALOMYELITIS, UNSPECIFIED SNOMED Code(s): 08325414 Plan: 1patient initially presented to hospital with left periorbital pain in this patient now also developing a rash in the distribution of the ophthalmic divis ion of the trigeminal nerve highly compatible with herpes zoster ophthalmicus 2-patient did have LP completed with elevated white count mild elevated protein and now with VZV DNA by PCR positive possible component of zoster encephalitis 3patient to continue with acyclovir, neurology has adjusted her pain medication see if that will help with her headache and monitor clinical course closely Dictation was produced using [employer] dictation software. please excuse any grammatical, word or spelling errors. Time with Patient: Less than 30
--- NOTE | 2024-05-14 22:24 | P.PN ---
Subjective Progress Note Date: 05/14/24 Principal diagnosis: Reason for follow-up is rash question of herpes zoster Patient is a 38-year-old female past medical history significant for depression presenting to the hospital for left periorbital pain/headache subsequently developing a rash to the periorbital area concerning for possible herpe zoster prompting this consultation. On today's evaluation that is 05/14/2024, the patient continues to be afebrile, the patient is on room air and breathing comfortably, the Pt denies having any chest pain or cough, the patient denies having any abdominal pain no vomiting or any diarrhea however still complaining of significant headache. Patient white count is 8.5 point creatinine 0.8 Objective - Vital Signs Vital signs: Vital Signs Temp 98.3 F 05/14/24 08:00 Pulse 60 05/14/24 08:00 Resp 17 05/14/24 08:00 BP 125/80 05/14/24 08:00 Pulse Ox 97 05/14/24 08:00 FiO2 Intake & Output 05/13/24 05/14/24 05/14/24 18:59 06:59 18:59 Intake Total 480 480 118 Balance 480 480 118 Intake: Oral 480 480 118 Other: Voiding Method Toilet Toilet Toilet # Voids 5 3 - Exam GENERAL DESCRIPTION: Middle-age female lying in bed in no distress HEENT; left periorbital rash slightly decreased intensity RESPIRATORY SYSTEM: Unlabored breathing , decreased breath sounds at bases HEART: S1 S2 regular rate and rhythm , ABDOMEN: Soft , no tenderness EXTREMITIES: No edema feet - Labs CBC & Chem 7: 05/14/24 04:56 05/14/24 04:56 Labs: Abnormal Lab Results - Last 24 Hours (Table) 05/14/24 Range/Units 04:56 BUN 6.6 L (9.0-27.0) mg/dL BUN/Creatinine Ratio 8.25 L (12.00-20.00) Ratio Total Bilirubin 0.2 L (0.3-1.2) mg/dL AST 10 L (13-35) U/L Microbiology - Last 24 Hours (Table) 05/10/24 14:51 CSF Gram Stain - Preliminary Cerebral Spinal Fluid CSF Culture - Preliminary Assessment and Plan (1) Shingles Current Visit: Yes Status: Acute Code(s): B02.9 - ZOSTER WITHOUT COM PLICATIONS SNOMED Code(s): 2891206 (2) Encephalitis Current Visit: Yes Status: Acute Code(s): G04.90 - ENCEPHALITIS AND ENCEPHALOMYELITIS, UNSPECIFIED SNOMED Code(s): 30369256 Plan: 1patient initially presented to hospital with left periorbital pain in this patient now also developing a rash in the distribution of the ophthalmic division of the trigeminal nerve highly compatible with herpes zoster ophthalmicus 2-patient did have LP completed with elevated white count mild elevated protein and now with VZV DNA by PCR positive possible component of zoster encephalitis 3patient with slight worsening of the headache possible spinal headache, patient is to continue with the acyclovir at this point and monitor clinical course closely Dictation was produced using [employer] dictation software. please excuse any gra mmatical, word or spelling errors. Time with Patient: Less than 30
--- NOTE | 2024-05-15 08:26 | P.PN ---
Subjective Progress Note Date: 05/14/24 Patient initially seen by Dr. Kong Smith. Please refer to his note for details. Patient is a 38-year-old female with headache, but afebrile and without any leukocytosis. Patient has herpetic lesion on left V1/2 distribution. Patient had CSF on 05/10/2024, which was hemorrhagic with 2150 RBCs, 186 nucleated cells, out of which 98% mononuclear and 2% polynuclear cells. HIV negative. RPR negative. CSF positive for VZV PCR. Patient currently on acyclovir 750 mg every 8 hours, started on 05/09/2024. Patient was seen for a follow-up. Patient's multiple family members were also present. Patient since lumbar puncture, has developed a different type of headache, as it now wraps around her entire head and into her spine. Patient has been started on Fioricet, which does help but otherwise the headache is very severe 05/10. Infectious disease has seen the patient, also believes it is post spinal headache. Patient at present is sitting in the bed appears comfortable. Patient has residual rash of herpes over the left V1/V2 distribution. Also has possible focal conjunctival injection left lateral region of the eye. Awaiting ophthalmology and patient will be followed up outpatient. Patient was having blurred vision with the left eye. However lately it has improved significantly. Some of the workup during this hospital visit consisted of: Temperature has been normal. CBC with differential is unremarkable ESR is 11. Repeat 8. B12 is 364 TSH is 1.790 Plasma lactic acid vein is 1.3. Hcg is not detected. HSV 1/2 DNA PCR HIV is non reactive SARS-CoV-2 PCR and RSV and not detected Treponema Ab nonreactive VZV: Detected. CT of the head is reported as no acute intracranial process. I personally reviewed the CT and agree with the report CT orbit is reported as no suspicious orbital changed by CT MRI of the brain with and without is reported as no intracranial abnormality seen. No enhancing lesion or white matter signal changes. Trace mucosal thickening ethmoid air cells. I personally reviewed the MRI and agree there is no acute intracranial process. MRA of the head is reported as no large vessel intracranial arterial occlusion, significant stenosis or aneurysm changes seen. MRV of the head is reported as no occlusion of the dural venous sinuses. Anatomic variation with smaller left transverse/sigmoid sinuses. CSF: pink, rbc 2150, total nucleated cells 186, monnuclear wbc 98%, glucose 46, protein 89. Opening pressure of 26cmg water and closing 14cm water. 9ml csf fluid collected. CSF culture: many polymorphonuclear leukocytes, no organisms. Objective - Vital Signs Vital signs: Vital Signs Temp 98.5 F 05/14/24 14:00 Pulse 78 05/14/24 14:00 Resp 16 05/14/24 14:00 BP 131/91 05/14/24 14:00 Pulse Ox 98 05/14/24 14:00 FiO2 Intake & Output 05/13/24 05/14/24 05/14/24 18:59 06:59 18:59 Intake Total 480 480 236 Balance 480 480 236 Intake: Oral 480 480 236 Other: Voiding Method Toilet Toilet Toilet # Voids 5 3 - Exam Mental status, speech and language functions are normal. Cranial nerves are normal. Patient has residual rash over the left V1/V2 distribution. Visual munguia are full. Extraocular muscles are intact. Face is symmetric. On muscle strength testing there is no pronator drift and the strength is normal. No ataxia for [id number] testing bilaterally. Sensory to touch is equal. - Labs CBC & Chem 7: 05/14/24 04:56 05/14/24 04:56 Labs: Abnormal Lab Results - Last 24 Hours (Table) 05/14/24 Range/Units 04:56 BUN 6.6 L (9.0-27.0) mg/dL BUN/Creatinine Ratio 8.25 L (12.00-20.00) Ratio Total Bilirubin 0.2 L (0.3-1.2) mg/dL AST 10 L (13-35) U/L Microbiology - Last 24 Hours (Table) 05/10/24 14:51 CSF Gram Stain - Preliminary Cerebral Spinal Fluid CSF Culture - Preliminary Assessment and Plan Assessment: * Herpes zoster ophthalmicus. 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 * Post spinal headache * Vapes * Alcohol use * History of depression Plan: Continue Acyclovir 750mg IV every 8 hours, as recommended by ID. Continue Fioricet as needed for post spinal headaches. Patient was given the option of toughing it out versus epidural blood patch. She wants to wait for 24 hours. Patient was informed that if she wants epidural blood patch, we can consult anesthesia to have it done, which has quick response typically. Stop Topamax, as there is concern of possible acute angle glaucoma from Topamax. Agree with increasing Lyrica from 25mg 1 tab tid to 50mg bid. Defer the rest of the medical management to primary and other specialist
--- NOTE | 2024-05-15 12:46 | P.PN ---
Subjective Progress Note Date: 05/15/24 Hospital Course: Patient is a pleasant 38-year-old female with a past medical history of depres emmanuel, nicotine use via vaping, and previous septoplasty. She presented to the emergency department with reports of severe intractable migraine headache. Patient reports symptoms initially began 10 days ago. She reports she was seen and evaluated in the emergency department and diagnosed with a sinus infection and started on Augmentin and discharged home. She reports she followed up outpatient with her PCP and was referred to the ENT. She states after seeing the ENT she was sent back to the emergency department at [facility] and was again instructed that she had a sinus infection and to continue same antibiotic regimen and discharged home. Patient reports initially this h eadache waxed and waned but over the past 3 to 4 days the symptoms significantly worsened and have become a sharp persistent pain above her left eye accompanied by drooping of her left eyelid, and pink watery left eye. She denies having any visual changes states things are little blurry due to the excess tearing but denies having any double vision, floaters, flashers, or loss of vision. Patient denies having any dizziness, lightheadedness, fevers, chills, chest pain, palpitations, shortness of breath, or experiencing any numbness/tingling/weakness/swelling in her extremities. Patient does deny chance of and reports having a negative test just 3 days prior. Upon arrival to our facility, patient underwent evaluation in the emergency department. Vital signs upon arrival show blood pressure 135/102, heart rate 74, respiratory rate 20, temp 97.9 F, and SpO2 of 97% on room air. CT brain completed negative for acute intracranial process. Orbital CT with contrast negative showing no suspicious orbital changes by CT criteria, revealing mild right septal deviation with clear paranasal sinuses.. Labs completed and reviewed. CBC unremarkable. BMP normal findings. Lactic acid 1.3. Magnesium 1.8. Liver profile unremarkable. CRP less than 0.5. Influenza A, influenza B, RSV, and COVID PCR negative. Patient started on Tegretol for concerns of trigeminal neuralgia. She was admitted under services with consultation to neurology. Serum hCG was negative. Brain MRI did not show any acute process. Brain MRA did not show any acute process. Patient later dev eloped vesicular lesions around left eye. Ophthalmology was also contacted. Patient started on acyclovir IV for zoster ophthalmicus. LP was done which was consistent with viral meningitis. Subjective: Patient seen and examined at bedside. No acute events overnight. Still having severe headaches. Pertinent positives and negatives as discussed above, a complete review of systems was performed and all other systems are negative. Vitals Signs Reviewed. General: Nontoxic, no distress, appears at stated age Derm: Warm, dry, left periorbital edema and vesicular lesions improving. Head: Atraumatic, normocephalic, symmetric Eyes: EOMI, no lid lag, anicteric sclera Mouth: No lip lesion, mucus membranes moist Cardiovascular: S1S2 reg, no murmur Lungs: CTA bilateral, no rhonchi, no rales, no accessory muscle use Abdominal: Soft, nontender to palpation, no guarding, no appreciable organo megaly Ext: No gross muscle atrophy, no edema, no contractures Neuro: CN II-XI grossly intact, no focal neuro deficits Psych: Alert, oriented, appropriate affect Data Reviewed Today: Pertinent Labs: No new labs Imaging: No new imaging Assessment and Plan: Zoster Ophthalmicus Viral meningitis Migraine headache Post spinal tap headache -Discussed management with neurology, recommending epidural blood patch, anesthesia consulted -Continue acyclovir 750 mg IVPB every 8 hours -Outpatient follow-up with ophthalmology -Continue Lyrica 50 twice daily -Continue normal saline 75 cc an hour -ID following -Pain control with Fioricet every 4 hours as needed, Tylenol 650 every 6 hours as needed, IV Dilaudid 0.5 mg every 3 hours as needed, 1 mg IV every 3 hours as needed, monitor for sedation, Toradol 15 IV every 6 hours as needed -Reglan 10 mg IV every 6 hours as needed, Zofran 4 mg IV every 6 hours as needed, Compazine 10 mg IV every 6 hours as needed for nausea vomiting Depression and anxiety -Continue sertraline 100 mg nightly and hydroxyzine 10 nightly Constipation -MiraLAX 17 g daily, senna 8.6 mg daily DVT ppx: Lovenox Code status: Full code Anticipated discharge place: Pending clinical course Anticipated discharge time: Pending clinical course Objective - Vital Signs Vital signs: Vital Signs Temp 97.6 F 05/15/24 07:17 Pulse 62 05/15/24 07:17 Resp 17 05/15/24 07:17 BP 122/83 05/15/24 07:17 Pulse Ox 98 05/15/24 07:17 FiO2 Intake & Output 05/14/24 05/15/24 05/15/24 18:59 06:59 18:59 Intake Total 236 Balance 236 Weight 77.111 kg Intake: Oral 236 Other: Voiding Method Toilet Toilet # Voids 4 - Labs CBC & Chem 7: 05/14/24 04:56 05/14/24 04:56 Labs: Microbiology - Last 24 Hours (Table) 05/10/24 14:51 CSF Gram Stain - Final Cerebral Spinal Fluid CSF Culture - Final
[2024-05-15] MEDS: ALPRAZolam 1 MG TAB PO STA (15:37)
--- NOTE | 2024-05-15 16:12 | P.PN ---
Subjective Progress Note Date: 05/15/24 Principal diagnosis: Reason for follow-up is rash question of herpes zoster Patient is a 38-year-old female past medical history significant for depression presenting to the hospital for left periorbital pain/headache subsequently developing a rash to the periorbital area concerning for possible herpe zoster prompting this consultation. On today's evaluation that is 05/15/2024, Patient is afebrile patient is currently on room air and denies having any shortness of breath, the patient denies any chest pain or cough, the patient denies any nausea vomiting did not h ave any abdominal pain and no diarrhea, patient did have improvement in her headache. No new labs were obtained today Objective - Vital Signs Vital signs: Vital Signs Temp 98.3 F 05/15/24 14:00 Pulse 61 05/15/24 14:00 Resp 16 05/15/24 14:00 BP 100/63 05/15/24 14:00 Pulse Ox 94 L 05/15/24 14:00 FiO2 Intake & Output 05/14/24 05/15/24 05/15/24 18:59 06:59 18:59 Intake Total 236 118 Balance 236 118 Weight 77.111 kg Intake: Oral 236 118 Other: Voiding Method Toilet Toilet # Voids 4 - Exam GENERAL DESCRIPTION: Middle-age female lying in bed in no distress HEENT; left periorbital rash slightly decreased intensity RESPIRATORY SYSTEM: Unlabored breathing , decreased breath sounds at bases HEART: S1 S2 regular rate and rhythm , ABDOMEN: Soft , no tenderness EXTREMITIES: No edema feet - Labs CBC & Chem 7: 05/14/24 04:56 05/14/24 04:56 Labs: Microbiology - Last 24 Hours (Table) 05/10/24 14:51 CSF Gram Stain - Final Cerebral Spinal Fluid CSF Culture - Final Assessment and Plan (1) Shingles Current Visit: Yes Status: Acute Code(s): B02.9 - ZOSTER WITHOUT COMPLICATIONS SNOMED Code(s): 3235411 (2) Encephalitis Current Visit: Yes Status: Acute Code(s): G04.90 - ENCEPHALITIS AND ENCEPHALOMYELITIS, UNSPECIFIED SNOMED Code(s): 98576009 Plan: 1patient initially presented to hospital with left periorbital pain in this patient now also developing a rash in the distribution of the ophthalmic division of the trigeminal nerve highly compatible with herpes zoster ophthalmicus 2-patient did have LP completed with elevated white count mild elevated protein and now with VZV DNA by PCR positive possible component of zoster encephalitis 3patient did have improvement in her headache and that she is ready for the spinal patch discussed with the admitting team continue with IV acyclovir while inpatient Dictation was produced using [employer] dictation software. please excuse any grammatical, word or spelling errors. Time with Patient: Less than 30
--- NOTE | 2024-05-15 18:22 | P.PCN ---
Date of Procedure: 05/15/24 Procedure(s) Performed: Procedure= lumbar epidural blood patch. Preoperative diagnosis= postdural puncture headache. Postoperative diagnoses= post dural puncture headache. Indication for the procedure= patient developed headache after diagnostic lumbar puncture done this week ,spinal headache persists in spite of conservative treatment, there is no focal neurological deficit, headache worse with sitting and standing position, and improved with lying supine, for this reason patient is a good candidate for epidural blood patch. anesthesia= local infiltration with lidocaine 1% 3 mL. Complications= none. Description of the procedure= patient identified risks and benefits of the procedure explained to the patient and patient agreed with proceeding. Back lumbar area prepped with chlorhexidine 3 times, then drape applied the local infiltration of the skin and subcutaneous tissue with lidocaine 1% 3 mL at L4-5 interlaminar space then 18-gauge 6 inches long Tuohy needle advanced slowly at L4-5 interlaminar space, There was positive loss of resistance to normal saline, no heme no paresthesia no cerebrospinal fluid, then after that 20 ML of the blood taken from the patient under strict sterile technique, and after the right antecubital area prepped with a chlorhexidine 3 times using 20-gauge Angiocath, and under sterile technique the 20 ML of the block taken from the patient injected in the epidural space after negative aspiration for heme or CSF and there was no paresthesia then the needle removed intact the skin cleaned and the , bandage applied , further management as per neurology services The blood patch done in the patient room 911
[2024-05-16] MEDS: IBUPROFEN 600 MG TAB PO PRN (09:27)
--- NOTE | 2024-05-16 11:31 | P.PN ---
Subjective Progress Note Date: 05/15/24 07/15/2024: Patient was seen for a follow-up. Patient is sleeping at this time. Earlier, nurses notified that patient's headache has got worse and she wants epidural blood patch. Anesthesia was consulted. She had undergone epidural blood patch today. She states headaches has improved. She has occasional icepick headache on the top of the scalp. 07/14/2024: Patient initially seen by Dr. Kong Smith. Please refer to his note for details. Patient is a 38-year-old female with headache, but afebrile and without any leukocytosis. Patient has herpetic lesion on left V1/2 distribution. Patient had CSF on 05/10/2024, which was hemorrhagic with 2150 RBCs, 186 nucleated cells, out of which 98% mononuclear and 2% polynuclear cells. HIV negative. RPR negative. CSF positive for VZV PCR. Patient currently on acyclovir 750 mg every 8 hours, started on 05/09/2024. Patient was seen for a follow-up. Patient's multiple family members were also present. Patient since lumbar puncture, has developed a different type of headache, as it now wraps around her entire head and into her spine. Patient has been started on Fioricet, which does help but otherwise the headache is very severe 05/10. Infectious disease has seen the patient, also believes it is post spinal headache. Patient at present is sitting in the bed appears comfortable. Patient has residual rash of herpes over the left V1/V2 distribution. Also has possible focal conjunctival injection left lateral region of the eye. Awaiting ophthalmology and patient will be followed up outpatient. Patient was having blurred vision with the left eye. However lately it has improved significantly. Some of the workup during this hospital visit consisted of: Temperature has been normal. CBC with differential is unremarkable ESR is 11. Repeat 8. B12 is 364 TSH is 1.790 Plasma lactic acid vein is 1.3. Hcg is not detected. HSV 1/2 DNA PCR HIV is non reactive SARS-CoV-2 PCR and RSV and not detected Treponema Ab nonreactive VZV: Detected. CT of the head is reported as no acute intracranial process. I personally reviewed the CT and agree with the report CT orbit is reported as no suspicious orbital changed by CT MRI of the brain with and without is reported as no intracranial abnormality seen. No enhancing lesion or white matter signal changes. Trace mucosal thickening ethmoid air cells. I personally reviewed the MRI and agree there is no acute intracranial process. MRA of the head is reported as no large vessel intracranial arterial occlusion, significant stenosis or aneurysm changes seen. MRV of the head is reported as no occlusion of the dural venous sinuses. Anatomic variation with smaller left transverse/sigmoid sinuses. CSF: pink, rbc 2150, total nucleated cells 186, monnuclear wbc 98%, glucose 46, protein 89. Opening pressure of 26cmg water and closing 14cm water. 9ml csf fluid collected. CSF culture: many polymorphonuclear leukocytes, no organisms. Objective - Vital Signs Vital signs: Vital Signs Temp 97.7 F 05/16/24 07:56 Pulse 55 L 05/16/24 07:56 Resp 16 05/16/24 07:56 BP 128/85 05/16/24 07:56 Pulse Ox 98 05/16/24 07:56 FiO2 Intake & Output 05/15/24 05/16/24 05/16/24 18:59 06:59 18:59 Intake Total 236 Balance 236 Weight 77.111 kg Intake: Oral 236 Other: Voiding Method Toilet Toilet # Voids 5 5 # Bowel Movements 1 - Exam Mental status, speech and language functions are normal. Cranial nerves are normal. Patient has residual rash over the left V1/V2 distribution. Visual munguia are full. Extraocular muscles are intact. Face is symmetric. On muscle strength testing there is no pronator drift and the strength is normal. No ataxia for snayos-ji-wusc testing bilaterally. Sensory to touch is equal. - Labs CBC & Chem 7: 05/14/24 04:56 05/14/24 04:56 Labs: Microbiology - Last 24 Hours (Table) 05/10/24 14:51 CSF Gram Stain - Final Cerebral Spinal Fluid CSF Culture - Final Assessment and Plan Assessment: * Herpes zoster ophthalmicus. 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 * Post spinal headache, status post epidural blood patch * Vapes * Alcohol use * History of depression Plan: Continue Acyclovir 750mg IV every 8 hours, as recommended by ID. Patient had undergone epidural blood patch today. Recommend slowly taper off Fioricet. Take Fioricet only as needed. Stop Topamax, as there is concern of possible acute angle glaucoma from Topamax. Agree with increasing Lyrica from 25mg 1 tab tid to 50mg bid. May have to further increase the dose if patient starts having symptoms of postherpetic neuralgia. Defer the rest of the medical management to primary and ID.
[2024-05-16] MEDS ORDERED: cloNIDine HCL 0.2 MG TAB PO PRN (12:47)
--- NOTE | 2024-05-16 13:02 | P.PN ---
Subjective Progress Note Date: 05/16/24 Hospital Course: Patient is a pleasant 38-year-old female with a past medical history of depres emmanuel, nicotine use via vaping, and previous septoplasty. She presented to the emergency department with reports of severe intractable migraine headache. Patient reports symptoms initially began 10 days ago. She reports she was seen and evaluated in the emergency department and diagnosed with a sinus infection and started on Augmentin and discharged home. She reports she followed up outpatient with her PCP and was referred to the ENT. She states after seeing the ENT she was sent back to the emergency department at [facility] and was again instructed that she had a sinus infection and to continue same antibiotic regimen and discharged home. Patient reports initially this h eadache waxed and waned but over the past 3 to 4 days the symptoms significantly worsened and have become a sharp persistent pain above her left eye accompanied by drooping of her left eyelid, and pink watery left eye. She denies having any visual changes states things are little blurry due to the excess tearing but denies having any double vision, floaters, flashers, or loss of vision. Patient denies having any dizziness, lightheadedness, fevers, chills, chest pain, palpitations, shortness of breath, or experiencing any numbness/tingling/weakness/swelling in her extremities. Patient does deny chance of and reports having a negative test just 3 days prior. Upon arrival to our facility, patient underwent evaluation in the emergency department. Vital signs upon arrival show blood pressure 135/102, heart rate 74, respiratory rate 20, temp 97.9 F, and SpO2 of 97% on room air. CT brain completed negative for acute intracranial process. Orbital CT with contrast negative showing no suspicious orbital changes by CT criteria, revealing mild right septal deviation with clear paranasal sinuses.. Labs completed and reviewed. CBC unremarkable. BMP normal findings. Lactic acid 1.3. Magnesium 1.8. Liver profile unremarkable. CRP less than 0.5. Influenza A, influenza B, RSV, and COVID PCR negative. Patient started on Tegretol for concerns of trigeminal neuralgia. She was admitted under services with consultation to neurology. Serum hCG was negative. Brain MRI did not show any acute process. Brain MRA did not show any acute process. Patient later dev eloped vesicular lesions around left eye. Ophthalmology was also contacted. Patient started on acyclovir IV for zoster ophthalmicus. LP was done which was consistent with viral meningitis. She continued to have persistent headaches, likely secondary to spinal tap. Had epidural blood patch procedure which improved the headache. Continues to have left left-sided frontal headache. Subjective: Patient seen and examined at bedside. No acute events overnight. The headache in the back has resolved, continues to have headache around her left eye. Pertinent positives and negatives as discussed above, a complete review of systems was performed and all other systems are negative. Vitals Signs Reviewed. General: Nontoxic, no distress, appears at stated age Derm: Warm, dry, left periorbital edema and vesicular lesions improving. Head: Atraumatic, normocephalic, symmetric Eyes: EOMI, no lid lag, anicteric sclera Mouth: No lip lesion, mucus membranes moist Cardiovascular: S1S2 reg, no murmur Lungs: CTA bilateral, no rhonchi, no rales, no accessory muscle use Abdominal: Soft, nontender to palpation, no guarding, no appreciable organomegaly Ext: No gross muscle atrophy, no edema, no contractures Neuro: CN II-XI grossly intact, no focal neuro deficits Psych: Alert, oriented, appropriate affect Data Reviewed Today: Pertinent Labs: No new labs Imaging: No new imaging Assessment and Plan: Zoster Ophthalmicus Viral meningitis Migraine headache Post spinal tap headache -Neurology following -Continue acyclovir 750 mg IVPB every 8 hours -Outpatient follow-up with ophthalmology -Continue Lyrica 50 twice daily -Continue normal saline 75 cc an hour -ID following -Pain control with Fioricet every 4 hours as needed, Tylenol 650 every 6 hours as needed, IV Dilaudid 0.5 mg every 3 hours as needed, 1 mg IV every 3 hours as needed, monitor for sedation, Toradol 15 IV every 6 hours as needed, ibuprofen 600 3 times daily as needed -Reglan 10 mg IV every 6 hours as needed, Zofran 4 mg IV every 6 hours as needed, Compazine 10 mg IV every 6 hours as needed for nausea vomiting -Her headache at this point is likely secondary to postherpetic neuralgia -Patient would like to see some improvement in pain and we will plan for discharge tomorrow Depression and anxiety -Continue sertraline 100 mg nightly and hydroxyzine 10 nightly Constipation -MiraLAX 17 g daily, senna 8.6 mg daily DVT ppx: Lovenox Code status: Full code Anticipated discharge place: Pending clinical course Anticipated discharge time: Pending clinical course Objective - Vital Signs Vital signs: Vital Signs Temp 97.7 F 05/16/24 07:56 Pulse 55 L 05/16/24 07:56 Resp 16 05/16/24 07:56 BP 128/85 05/16/24 07:56 Pulse Ox 98 05/16/24 07:56 FiO2 Intake & Output 05/15/24 05/16/24 05/16/24 18:59 06:59 18:59 Intake Total 236 Balance 236 Weight 77.111 kg Intake: Oral 236 Other: Voiding Method Toilet Toilet # Voids 5 5 # Bowel Movements 1 - Labs CBC & Chem 7: 05/14/24 04:56 05/14/24 04:56
--- NOTE | 2024-05-17 09:18 | P.PN ---
Subjective Progress Note Date: 05/16/24 Principal diagnosis: Reason for follow-up is rash question of herpes zoster Patient is a 38-year-old female past medical history significant for depression presenting to the hospital for left periorbital pain/headache subsequently developing a rash to the periorbital area concerning for possible herpe zoster prompting this consultation. On today's evaluation that is 05/16/2024, patient has been afebrile, patient is breathing comfortably and is currently on room air, patient denies having any significant cough no chest pain, patient denies nausea vomiting or diarrhea and no abdominal pain, patient did have improvement in headache after the spinal patch. Patient did not have any lab draw today Objective - Vital Signs Vital signs: Vital Signs Temp 97.7 F 05/16/24 07:56 Pulse 55 L 05/16/24 07:56 Resp 16 05/16/24 07:56 BP 128/85 05/16/24 07:56 Pulse Ox 98 05/16/24 07:56 FiO2 Intake & Output 05/15/24 05/16/24 05/16/24 18:59 06:59 18:59 Intake Total 236 Balance 236 Weight 77.111 kg Intake: Oral 236 Other: Voiding Method Toilet Toilet # Voids 5 5 # Bowel Movements 1 - Exam GENERAL DESCRIPTION: Middle-age female lying in bed in no distress HEENT; left periorbital rash slightly decreased intensity RESPIRATORY SYSTEM: Unlabored breathing , decreased breath sounds at bases HEART: S1 S2 regular rate and rhythm , ABDOMEN: Soft , no tenderness EXTREMITIES: No edema feet - Labs CBC & Chem 7: 05/14/24 04:56 05/14/24 04:56 Assessment and Plan (1) Shingles Current Visit: Yes Status: Acute Code(s): B02.9 - ZOSTER WITHOUT COM PLICATIONS SNOMED Code(s): 9767952 (2) Encephalitis Current Visit: Yes Status: Acute Code(s): G04.90 - ENCEPHALITIS AND ENCEPHALOMYELITIS, UNSPECIFIED SNOMED Code(s): 75381320 Plan: 1patient initially presented to hospital with left periorbital pain in this patient now also developing a rash in the distribution of the ophthalmic division of the trigeminal nerve highly compatible with herpes zoster ophthalmicus 2-patient did have LP completed with elevated white count mild elevated protein and now with VZV DNA by PCR positive possible component of zoster encephalitis 3patient did have improvement in her headache after the spinal patch recommend at least 10-day course of IV acyclovir before transition to Valtrex oral, patient also benefit from ophthalmology evaluation as the patient has been complaining of some blurriness of the vision on the left side Dictation was produced using [employer] software. please excuse any grammatical, word or spelling errors. Time with Patient: Less than 30
--- NOTE | 2024-05-17 11:55 | P.PN ---
Subjective Progress Note Date: 05/17/24 Hospital Course: Patient is a pleasant 38-year-old female with a past medical history of depres emmanuel, nicotine use via vaping, and previous septoplasty. She presented to the emergency department with reports of severe intractable migraine headache. Patient reports symptoms initially began 10 days ago. She reports she was seen and evaluated in the emergency department and diagnosed with a sinus infection and started on Augmentin and discharged home. She reports she followed up outpatient with her PCP and was referred to the ENT. She states after seeing the ENT she was sent back to the emergency department at [facility] and was again instructed that she had a sinus infection and to continue same antibiotic regimen and discharged home. Patient reports initially this h eadache waxed and waned but over the past 3 to 4 days the symptoms significantly worsened and have become a sharp persistent pain above her left eye accompanied by drooping of her left eyelid, and pink watery left eye. She denies having any visual changes states things are little blurry due to the excess tearing but denies having any double vision, floaters, flashers, or loss of vision. Patient denies having any dizziness, lightheadedness, fevers, chills, chest pain, palpitations, shortness of breath, or experiencing any numbness/tingling/weakness/swelling in her extremities. Patient does deny chance of and reports having a negative test just 3 days prior. Upon arrival to our facility, patient underwent evaluation in the emergency department. Vital signs upon arrival show blood pressure 135/102, heart rate 74, respiratory rate 20, temp 97.9 F, and SpO2 of 97% on room air. CT brain completed negative for acute intracranial process. Orbital CT with contrast negative showing no suspicious orbital changes by CT criteria, revealing mild right septal deviation with clear paranasal sinuses.. Labs completed and reviewed. CBC unremarkable. BMP normal findings. Lactic acid 1.3. Magnesium 1.8. Liver profile unremarkable. CRP less than 0.5. Influenza A, influenza B, RSV, and COVID PCR negative. Patient started on Tegretol for concerns of trigeminal neuralgia. She was admitted under services with consultation to neurology. Serum hCG was negative. Brain MRI did not show any acute process. Brain MRA did not show any acute process. Patient later dev eloped vesicular lesions around left eye. Ophthalmology was also contacted. Patient started on acyclovir IV for zoster ophthalmicus. LP was done which was consistent with viral meningitis. She continued to have persistent headaches, likely secondary to spinal tap. Had epidural blood patch procedure which improved the headache. Continues to have left left-sided frontal headache, but improving. Subjective: Patient seen and examined at bedside. No acute events overnight. Headache is improving. Pertinent positives and negatives as discussed above, a complete review of systems was performed and all other systems are negative. Vitals Signs Reviewed. General: Nontoxic, no distress, appears at stated age Derm: Warm, dry, left periorbital edema and vesicular lesions improving. Head: Atraumatic, normocephalic, symmetric Eyes: EOMI, no lid lag, anicteric sclera Mouth: No lip lesion, mucus membranes moist Cardiovascular: S1S2 reg, no murmur Lungs: CTA bilateral, no rhonchi, no rales, no accessory muscle use Abdominal: Soft, nontender to palpation, no guarding, no appreciable organ omegaly Ext: No gross muscle atrophy, no edema, no contractures Neuro: CN II-XI grossly intact, no focal neuro deficits Psych: Alert, oriented, appropriate affect Data Reviewed Today: Pertinent Labs: No new labs Imaging: No new imaging Assessment and Plan: Zoster Ophthalmicus Viral meningitis Migraine headache Post spinal tap headache -Neurology following -Continue acyclovir 750 mg IVPB every 8 hours -Outpatient follow-up with ophthalmology -Continue Lyrica 50 twice daily -Continue normal saline 75 cc an hour -Pain control with Fioricet every 4 hours as needed, Tylenol 650 every 6 hours as needed, IV Dilaudid 0.5 mg every 3 hours as needed, 1 mg IV every 3 hours as needed, monitor for sedation, Toradol 15 IV every 6 hours as needed, ibuprofen 600 3 times daily as needed -Reglan 10 mg IV every 6 hours as needed, Zofran 4 mg IV every 6 hours as needed, Compazine 10 mg IV every 6 hours as needed for nausea vomiting -Her headache at this point is likely secondary to postherpetic neuralgia -Discussed management with ID, complete a total of 10-day course of IV acyclovir which she will finish tomorrow, then patient can go home on oral antivirals Depression and anxiety -Continue sertraline 100 mg nightly and hydroxyzine 10 nightly Constipation -MiraLAX 17 g daily, senna 8.6 mg daily DVT ppx: Lovenox Code status: Full code Anticipated discharge place: Home Anticipated discharge time: Tomorrow Objective - Vital Signs Vital signs: Vital Signs Temp 97.8 F 05/17/24 07:30 Pulse 64 05/17/24 07:30 Resp 15 05/17/24 07:30 BP 116/83 05/17/24 07:30 Pulse Ox 96 05/17/24 07:30 FiO2 Intake & Output 05/16/24 05/17/24 05/17/24 18:59 06:59 18:59 Intake Total 838 118 Balance 838 118 Intake: Oral 838 118 Other: Voiding Method Toilet Toilet # Voids 4 2 - Labs CBC & Chem 7: 05/14/24 04:56 05/14/24 04:56
--- NOTE | 2024-05-17 12:27 | P.PN ---
Subjective Progress Note Date: 05/16/24 07/16/2024: Patient was seen for follow-up. Patient's Po spinal headache has remarkably improved. She was able to shower and walk and was doing good all day. She still has left orbital pain in the region of shingles, which she describes as throbbing, aching. Sometime 8 pounds. Denies any pain in the shoulder region or the spine. She feels her left palpebral fissure is smaller as compared to the right, likely from swelling. 07/15/2024: Patient was seen for a follow-up. Patient is sleeping at this time. Earlier, nurses notified that patient's headache has got worse and she wants epidural blood patch. Anesthesia was consulted. She had undergone epidural blood patch today. She states headaches has improved. She has occasional icepick headache on the top of the scalp. 07/14/2024: Patient initially seen by Dr. Kong Smith. Please refer to his note for details. Patient is a 38-year-old female with headache, but afebrile and without any leukocytosis. Patient has herpetic lesion on left V1/2 distribution. Patient had CSF on 05/10/2024, which was hemorrhagic with 2150 RBCs, 186 nucleated cells, out of which 98% mononuclear and 2% polynuclear cells. HIV negative. RPR negative. CSF positive for VZV PCR. Patient currently on acyclovir 750 mg every 8 hours, started on 05/09/2024. Patient was seen for a follow-up. Patient's multiple family members were also present. Patient since lumbar puncture, has developed a different type of headache, as it now wraps around her entire head and into her spine. Patient has been started on Fioricet, which does help but otherwise the headache is very severe 05/10. Infectious disease has seen the patient, also believes it is post spinal headache. Patient at present is sitting in the bed appears comfortable. Patient has residual rash of herpes over the left V1/V2 distribution. Also has possible focal conjunctival injection left lateral region of the eye. Awaiting ophthalmology and patient will be followed up outpatient. Patient was having blurred vision with the left eye. However lately it has improved significantly. Some of the workup during this hospital visit consisted of: Temperature has been normal. CBC with differential is unremarkable ESR is 11. Repeat 8. B12 is 364 TSH is 1.790 Plasma lactic acid vein is 1.3. Hcg is not detected. HSV 1/2 DNA PCR HIV is non reactive SARS-CoV-2 PCR and RSV and not detected Treponema Ab nonreactive VZV: Detected. CT of the head is reported as no acute intracranial process. I personally reviewed the CT and agree with the report CT orbit is reported as no suspicious orbital changed by CT MRI of the brain with and without is reported as no intracranial abnormality seen. No enhancing lesion or white matter signal changes. Trace mucosal thickening ethmoid air cells. I personally reviewed the MRI and agree there is no acute intracranial process. MRA of the head is reported as no large vessel intracranial arterial occlusion, significant stenosis or aneurysm changes seen. MRV of the head is reported as no occlusion of the dural venous sinuses. Anatomic variation with smaller left transverse/sigmoid sinuses. CSF: pink, rbc 2150, total nucleated cells 186, monnuclear wbc 98%, glucose 46, protein 89. Opening pressure of 26cmg water and closing 14cm water. 9ml csf fluid collected. CSF culture: many polymorphonuclear leukocytes, no organisms. Objective - Vital Signs Vital signs: Vital Signs Temp 97.5 F L 05/16/24 14:00 Pulse 62 05/16/24 14:00 Resp 16 05/16/24 14:00 BP 114/78 05/16/24 14:00 Pulse Ox 100 05/16/24 14:00 FiO2 Intake & Output 05/15/24 05/16/24 05/16/24 18:59 06:59 18:59 Intake Total 236 480 Balance 236 480 Weight 77.111 kg Intake: Oral 236 480 Other: Voiding Method Toilet Toilet # Voids 5 5 4 # Bowel Movements 1 - Exam Mental status, speech and language functions are normal. Cranial nerves are normal. Patient has residual rash over the left V1/V2 distribution, which is improving. Visual munguia are full. Extraocular muscles are intact. Face is symmetric. Patient does have smaller left palpebral fissure. Likely from some swelling. On muscle strength testing there is no pronator drift and the strength is normal. No ataxia for [id number] testing bilaterally. Sensory to touch is equal. 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 * Post spinal headache, status post epidural blood patch * Vapes * Alcohol use * History of depression Plan: Continue Acyclovir 750mg IV every 8 hours, as recommended by ID. Started on 05/09/2024 Patient had undergone epidural blood patch yesterday. Recommend slowly taper off Fioricet. Take Fioricet only as needed. Stop Topamax, as there is concern of possible acute angle glaucoma from Topamax. Agree with increasing Lyrica from 25mg 1 tab tid to 50mg bid. May have to further increase the dose if patient starts having symptoms of postherpetic neuralgia. Defer the rest of the medical management to primary and ID.
--- NOTE | 2024-05-17 12:42 | P.PN ---
Subjective Progress Note Date: 05/17/24 Principal diagnosis: Reason for follow-up is rash question of herpes zoster Patient is a 38-year-old female past medical history significant for depression presenting to the hospital for left periorbital pain/headache subsequently developing a rash to the periorbital area concerning for possible herpe zoster prompting this consultation. On today's evaluation that is 05/17/2024, patient continues afebrile, patient is breathing comfortably on room air, patient denies having any significant cough no chest pain, patient denies nausea vomiting or diarrhea and no abdominal pain, patient did have overall improvement of her headache feeling better. No new lab has been obtained today Objective - Vital Signs Vital signs: Vital Signs Temp 97.8 F 05/17/24 07:30 Pulse 64 05/17/24 07:30 Resp 15 05/17/24 07:30 BP 116/83 05/17/24 07:30 Pulse Ox 96 05/17/24 07:30 FiO2 Intake & Output 05/16/24 05/17/24 05/17/24 18:59 06:59 18:59 Intake Total 838 118 Balance 838 118 Intake: Oral 838 118 Other: Voiding Method Toilet Toilet # Voids 4 2 - Exam GENERAL DESCRIPTION: Middle-age female lying in bed in no distress HEENT; left periorbital rash slightly decreased intensity RESPIRATORY SYSTEM: Unlabored breathing , decreased breath sounds at bases HEART: S1 S2 regular rate and rhythm , ABDOMEN: Soft , no tenderness EXTREMITIES: No edema feet - Labs CBC & Chem 7: 05/14/24 04:56 05/14/24 04:56 Assessment and Plan (1) Shingles Current Visit: Yes Status: Acute Code(s): B02.9 - ZOSTER WITHOUT COMPLICATIONS SNOMED Code(s): 8204857 (2) Encephalitis Current Visit: Yes Status: Acute Code(s): G04.90 - ENCEPHALITIS AND ENCEPHALOMYELITIS, UNSPECIFIED SNOMED Code(s): 90638896 Plan: 1patient initially presented to hospital with left periorbital pain in this patient now also developing a rash in the distribution of the ophthalmic division of the trigeminal nerve highly compatible with herpes zoster ophthalmicus 2-patient did have LP completed with elevated white count mild elevated protein and now with VZV DNA by PCR positive possible component of zoster encephalitis 3patient did have improvement in her headache after the spinal patch recommend at least 10-day course of IV acyclovir before transition to Valtrex oral, so we will keep her in the hospital for another 24 hours this has been discussed with admitting physician will consider a week course of oral Valtrex on discharge Dictation was produced using [employer] dictation software. please excuse any grammatical, word or spelling errors. Time with Patient: Less than 30
[2024-05-18 07:45] VITALS: BP 117/77; PULSE 54; RESP 14; TEMP 98.2
[2024-05-18 10:28] LABS: HCT 44.1 % (34.0-46.0); HGB 14.1 gm/dL (11.4-16.0); MCH 28.8 pg (25.0-35.0); MCV 89.8 fL (80.0-100.0); Mean Platelet Volume 7.1; Platelet Count 299 k/uL (150-450); RBC 4.91 m/uL (3.80-5.40); RDW 12.8 % (11.5-15.5); WBC 7.1 k/uL (3.8-10.6)
[2024-05-18 10:36] LABS: ALT 20 U/L (4-34); AST 21 U/L (14-36); African American GFR (CKD) >90 (>60 ml/min/1.73 sqM); Albumin 4.5 g/dL (3.5-5.0); Albumin/Globulin Ratio 1.7; Alkaline Phosphatase 50 U/L (38-126); Anion Gap 9 mmol/L; Blood Urea Nitrogen 7 mg/dL (7-17); Calcium 9.4 mg/dL (8.4-10.2); Carbon Dioxide 21 mmol/L (22-30); Chloride 109 mmol/L (98-107); Globulin 2.6 g/dL; Glucose 86 mg/dL (74-99); Non-African American GFR(CKD) >90 (>60 ml/min/1.73 sqM); Potassium 3.9 mmol/L (3.5-5.1); Sodium 139 mmol/L (137-145); Total Bilirubin 0.6 mg/dL (0.2-1.3); Total Protein 7.1 g/dL (6.3-8.2)
--- NOTE | 2024-05-18 11:07 | P.DS ---
Providers Date of admission: 05/10/24 09:17 Expected date of discharge: 05/18/24 Attending physician: Anjana Zapata MD Consults: 05/06/24 13:46 Consult Physician Routine Consulting Provider: Saniya Curran Consult Reason/Comments: Severe PIERSON, possible trigeminal neuralgia Do you want consulting provider notified?: Yes 05/09/24 09:34 Consult Physician Urgent Consulting Provider: Joey Harkins Consult Reason/Comments: concern for ocular/facial herpes Do you want consulting provider notified?: Yes 05/15/24 12:00 Consult to Anesthesia Routine Consulting Provider: Anesthesia,Services Consult Reason/Comments: Epidural blood patch Primary care physician: Stated None Hospital Course: Discharge Diagnosis: Zoster Ophthalmicus. Patient received 10-day course of IV acyclovir and is being discharged home on an additional 7-day course of Valtrex. Ophthalmology appointment has been scheduled for next week. Patient instructed on importance of taking medication exactly as prescribed and following up with PCP, laboratory apparatus glass blower, and infectious disease physician. Viral meningitis, secondary to above Migraine headache, secondary to above Post spinal tap headache, epidural patch was placed improving headache. Depression and anxiety. Continue sertraline 100 mg nightly and hydroxyzine 10 nightly Constipation. Resolved. Hospital Course: Patient is a very pleasant 38-year-old female with a past medical history of depression, nicotine use via vaping, and previous septoplasty. She presented to the emergency department with reports of severe intractable migraine headache. Patient reports symptoms initially began 10 days ago. She reports she was seen and evaluated in the emergency department and diagnosed with a sinus infection and started on Augmentin and discharged home. She reports she followed up outpatient with her PCP and was referred to the ENT. She states after seeing the ENT she was sent back to the emergency department at [facility] and was again instructed that she had a sinus infection and to continue same antibiotic regimen and discharged home. Patient reports initially this headache waxed and waned but over the past 3 to 4 days the symptoms significantly worsened and have become a sharp persistent pain above her left eye accompanied by drooping of her left eyelid, and pink watery left eye. She denies having any visual changes states things are little blurry due to the excess tearing but denies having any double vision, floaters, flashers, or loss of vision. Patient denies having any dizziness, lightheadedness, fevers, chills, chest pain, palpitations, shortness of breath, or experiencing any numbness/tingling/weakness/swelling in her extremities. Patient does deny chance of and reports having a negative test just 3 days prior. Upon arrival to our facility, patient underwent evaluation in the emergency department. Vital signs upon arrival show blood pressure 135/102, heart rate 74, respiratory rate 20, temp 97.9 F, and SpO2 of 97% on room air. CT brain completed negative for acute intracranial process. Orbital CT with contrast negative showing no suspicious orbital changes by CT criteria, revealing mild right septal deviation with clear paranasal sinuses.. Labs completed and reviewed. CBC unremarkable. BMP normal findings. Lactic acid 1.3. Magnesium 1.8. Liver profile unremarkable. CRP less than 0.5. Influenza A, influenza B, RSV, and COVID PCR negative. Patient started on Tegretol for concerns of trigeminal neuralgia. She was admitted under services with consultation to neurology. Serum hCG was negative. Brain MRI did not show any acute process. Brain MRA did not show any acute process. Patient later developed vesicular lesions around left eye. Ophthalmology was also contacted. Patient started on acyclovir IV for zoster ophthalmicus. LP was done which was consistent with viral meningitis. She continued to have persistent headaches, likely secondary to spinal tap. Had epidural blood patch procedure which improved the headache. Patient's symptoms improved and she is now free from any complaints at this time. She continues to report minimal/mild blurring out of left eye and continues to have mild left eyelid edema but significantly improving. Patient received a 10-day course of IV acyclovir and has been cleared by infectious disease to be discharged home on an additional 7-day course of Valtrex. Ophthalmology appointment has been scheduled for next week. Patient is medically stable for discharge at this time and to follow-up outpatient with PCP, laboratory apparatus glass blower, and infectious disease physician. Physical exam: Vital signs reviewed and stable. General: Nontoxic, no distress and appears stated age. Derm: Skin warm and dry, normal coloration for ethnicity. Head: Atraumatic, normocephalic and symmetric. Left periorbital edema and vesicular lesions significantly improving. Eyes: EOM's intact, no lid lag, and anicteric sclera Mouth: no lip lesions, mucus membranes moist Cardiovascular: regular rate and rhythm with normal S1S2, no murmur, positive posterior tibial pulses bilaterally, and cap refill < 2 seconds. Lungs: Respirations even, regular, and unlabored on room air. Lungs CTA bilaterally, no rhonchi, no rales, no wheezing, and no accessory muscle usage. Abdominal: soft, nontender to palpation, no guarding, no appreciable organomegaly Ext: ROM intact. No gross muscle atrophy, no edema, no contractures Neuro: Speech clear, face symmetrical and CN II-XII grossly intact with no noted focal neuro deficits Psych: Alert and oriented to person, place, time, and situation. Appropriate and pleasant affect. A total of 35 minutes of time were spent preparing this complex discharge summary. Pt was discharged on 05/18/2024 at 10:53 AM Patient was seen independently by Nurse Practitioner. This document was prepared using [employer] dictation software. Please allow for errors in retail greeting card merchandiser while rare they do occur. I reviewed the documentation as provided by the SYDNIE above, who is the original author of this note. I agree with the documented assessment and plan, with the following changes: none Patient Condition at Discharge: Stable Plan - Discharge Summary New Discharge Prescriptions: New Butalb/APAP/Caff 50-325-40Mg [Fioricet 50-325-40] 2 each PO Q4HR PRN #12 tab PRN Reason: Headache Pregabalin [Lyrica] 50 mg PO BID #14 cap valACYclovir HCL [Valtrex] 1,000 mg PO Q8H 7 Days #21 tablet Continue Sertraline [Zoloft] 100 mg PO HS Cetirizine HCl [Zyrtec] 10 mg PO HS hydrOXYzine HCL [Atarax] 10 mg PO HS Discharge Medication List Cetirizine HCl [Zyrtec] 10 mg PO HS 05/06/24 [History] Sertraline [Zoloft] 100 mg PO HS 05/06/24 [History] hydrOXYzine HCL [Atarax] 10 mg PO HS 05/06/24 [History] Butalb/APAP/Caff 50-325-40Mg [Fioricet 50-325-40] 2 each PO Q4HR PRN #12 tab 05/18/24 [Rx] Pregabalin [Lyrica] 50 mg PO BID #14 cap 05/18/24 [Rx] valACYclovir HCL [Valtrex] 1,000 mg PO Q8H 7 Days #21 tablet 05/18/24 [Rx] Follow up Appointment(s)/Referral(s): Josué Madden MD [REFERRING] - 1-2 Days (Please call and schedule follow up appointment at [facility] with Dr. Madden PRIOR to discharging patient. ) Joey Harkins MD [STAFF PHYSICIAN] - 1 Week Patient Instructions/Handouts: Viral Meningitis (DC), Shingles (DC) Activity/Diet/Wound Care/Special Instructions: Activity: As tolerated. Take breaks as needed. Diet: Heart healthy and carb consistent diet. Avoid salts, or foods with hidden salts such as canned or boxed foods and frozen dinners. Extra salt makes your heart work harder and traps the fluid in your body for longer. Special Instructions: Take all of your medications as directed and remember to keep all of your doctor's appointments and follow-up as needed. As discussed it is of utmost importance to follow-up outpatient with ophthal mologist as scheduled. Thank you for allowing us to participate in your care, it was truly a pleasure having you for our patient!!! Discharge Disposition: HOME SELF-CARE
--- NOTE | 2024-05-18 12:42 | P.PN ---
Subjective Progress Note Date: 05/17/24 07/17/2024: Patient was seen for a follow-up. Patient is laying in the bed. Patient complaining of some nausea. Patient states that she did exertion a little bit more. She cleaned the room. Walked quite a bit. She still has pain and Fioricet is helping. She has a dull ache above the eyebrow in the scalp region. Post spinal headache has resolved. 07/16/2024: Patient was seen for follow-up. Patient's Po spinal headache has remarkably improved. She was able to shower and walk and was doing good all day. She still has left orbital pain in the region of shingles, which she describes as throbbing, aching. Sometime 8 pounds. Denies any pain in the shoulder region or the spine. She feels her left palpebral fissure is smaller as compared to the right, likely from swelling. 07/15/2024: Patient was seen for a follow-up. Patient is sleeping at this time. Earlier, nurses notified that patient's headache has got worse and she wants epidural blood patch. Anesthesia was consulted. She had undergone epidural blood patch today. She states headaches has improved. She has occasional icepick headache on the top of the scalp. 07/14/2024: Patient initially seen by Dr. Kong Smith. Please refer to his note for details. Patient is a 38-year-old female with headache, but afebrile and without any leukocytosis. Patient has herpetic lesion on left V1/2 distribution. Patient had CSF on 05/10/2024, which was hemorrhagic with 2150 RBCs, 186 nucleated cells, out of which 98% mononuclear and 2% polynuclear cells. HIV negative. RPR negative. CSF positive for VZV PCR. Patient currently on acyclovir 750 mg every 8 hours, started on 05/09/2024. Patient was seen for a follow-up. Patient's multiple family members were also present. Patient since lumbar puncture, has developed a different type of headache, as it now wraps around her entire head and into her spine. Patient has been started on Fioricet, which does help but otherwise the headache is very severe 05/10. Infectious disease has seen the patient, also believes it is post spinal headache. Patient at present is sitting in the bed appears comfortable. Patient has residual rash of herpes over the left V1/V2 distribution. Also has possible focal conjunctival injection left lateral region of the eye. Awaiting ophthalmology and patient will be followed up outpatient. Patient was having blurred vision with the left eye. However lately it has improved significantly. Some of the workup during this hospital visit consisted of: Temperature has been normal. CBC with differential is unremarkable ESR is 11. Repeat 8. B12 is 364 TSH is 1.790 Plasma lactic acid vein is 1.3. Hcg is not detected. HSV 1/2 DNA PCR HIV is non reactive SARS-CoV-2 PCR and RSV and not detected Treponema Ab nonreactive VZV: Detected. CT of the head is reported as no acute intracranial process. I personally r eviewed the CT and agree with the report CT orbit is reported as no suspicious orbital changed by CT MRI of the brain with and without is reported as no intracranial abnormality seen. No enhancing lesion or white matter signal changes. Trace mucosal thickening ethmoid air cells. I personally reviewed the MRI and agree there is no acute intracranial process. MRA of the head is reported as no large vessel intracranial arterial occlusion, significant stenosis or aneurysm changes seen. MRV of the head is reported as no occlusion of the dural venous sinuses. Anatomic variation with smaller left transverse/sigmoid sinuses. CSF: pink, rbc 2150, total nucleated cells 186, monnuclear wbc 98%, glucose 46, protein 89. Opening pressure of 26cmg water and closing 14cm water. 9ml csf fluid collected. CSF culture: many polymorphonuclear leukocytes, no organisms. Objective - Vital Signs Vital signs: Vital Signs Temp 98.2 F 05/18/24 07:44 Pulse 54 L 05/18/24 07:44 Resp 14 05/18/24 07:44 BP 117/77 05/18/24 07:44 Pulse Ox 98 05/18/24 07:44 FiO2 Intake & Output 05/17/24 05/18/24 05/18/24 18:59 06:59 18:59 Intake Total 236 236 Balance 236 236 Intake: Oral 236 236 Other: Voiding Method Toilet Toilet # Voids 1 4 - Exam Mental status, speech and language functions are normal. Cranial nerves are normal. Patient has residual rash over the left V1/V2 distribution, which is improving. Visual munguia are full. Extraocular muscles are intact. Face is symmetric. Patient does have smaller left palpebral fissure. Likely from some swelling. On muscle strength testing there is no pronator drift and the strength is normal. No ataxia for [id number] testing bilaterally. Sensory to touch is equal. - Labs CBC & Chem 7: 05/18/24 09:59 05/18/24 09:59 Labs: Abnormal Lab Results - Last 24 Hours (Table) 05/18/24 Range/Units 09:59 Chloride 109 H (98-107) mmol/L Carbon Dioxide 21 L (22-30) mmol/L Assessment and Plan Assessment: * Herpes zoster ophthalmicus. 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 * Post spinal headache, status post epidural blood patch * Vapes * Alcohol use * History of depression Plan: Continue Acyclovir 750mg IV every 8 hours, as recommended by ID. Started on 05/09/2024. Patient to complete 10-day course, which will be tomorrow. Thereafter patient will be clear for discharge. Patient had undergone epidural blood patch yesterday. Recommend slowly taper off Fioricet. Take Fioricet only as needed. Stop Topamax, as there is concern of possible acute angle glaucoma from Topamax. Agree with increasing Lyrica from 25mg 1 tab tid to 50mg bid. May have to further increase the dose if patient starts having symptoms of postherpetic neuralgia. Defer the rest of the medical management to primary and ID. Patient has made an appointment with the oracle business intelligence developer for Tuesday. Also recommended to follow-up with neurologist. Neurologically clear for discharge in the morning.
--- NOTE | 2024-05-20 13:58 | P.PN ---
Subjective Progress Note Date: 05/18/24 Principal diagnosis: Reason for follow-up is rash question of herpes zoster Patient is a 38-year-old female past medical history significant for depression presenting to the hospital for left periorbital pain/headache subsequently developing a rash to the periorbital area concerning for possible herpe zoster prompting this consultation. On today's evaluation that is 05/18/2024, patient remains to be afebrile, patient is breathing comfortably currently on on room air, patient denies having any significant cough no chest pain, patient denies nausea vomiting or diarrhea and no abdominal pain, patient did have overall improvement of her headache feeling better and wants to go home. Patient did have white count of 7.1, creatinine 0.59 Objective - Vital Signs Vital signs: Vital Signs Temp 98.2 F 05/18/24 07:44 Pulse 54 L 05/18/24 07:44 Resp 14 05/18/24 07:44 BP 117/77 05/18/24 07:44 Pulse Ox 98 05/18/24 07:44 FiO2 Intake & Output 05/17/24 05/18/24 05/18/24 18:59 06:59 18:59 Intake Total 236 236 Balance 236 236 Intake: Oral 236 236 Other: Voiding Method Toilet Toilet # Voids 1 4 - Exam GENERAL DESCRIPTION: Middle-age female lying in bed in no distress HEENT; left periorbital rash slightly decreased intensity RESPIRATORY SYSTEM: Unlabored breathing , decreased breath sounds at bases HEART: S1 S2 regular rate and rhythm , ABDOMEN: Soft , no tenderness EXTREMITIES: No edema feet - Labs CBC & Chem 7: 05/18/24 09:59 05/18/24 09:59 Labs: Abnormal Lab Results - Last 24 Hours (Table) 05/18/24 Range/Units 09:59 Chloride 109 H (98-107) mmol/L Carbon Dioxide 21 L (22-30) mmol/L Assessment and Plan (1) Shingles Status: Acute Code(s): B02.9 - ZOSTER WITHOUT COMPLICATIONS SNOMED Code(s): 7954910 (2) Encephalitis Status: Acute Code(s): G04.90 - ENCEPHALITIS AND ENCEPHALOMYELITIS, UNSPECIFIED SNOMED Code(s): 62405655 Plan: 1patient initially presented to hospital with left periorbital pain in this patient now also developing a rash in the distribution of the ophthalmic division of the trigeminal nerve highly compatible with herpes zoster ophthalmicus 2-patient did have LP completed with elevated white count mild elevated protein and now with VZV DNA by PCR positive possible component of zoster encephalitis 3patient did have improvement in her headache after the spinal patch and has received 10-day course of IV acyclovir we will consider a 7-day course of oral Valtrex on discharge and close outpatient follow-up patient which is scheduled to follow-up with her fire crew specialist on Tuesday Dictation was produced using [employer] software. please excuse any grammatical, word or spelling errors. Time with Patient: Less than 30
== END 2024-05-18 12:30 | disposition home or self-care (01) | DRG 75 ==
LOC: EC 09:42 → 6NMEDSUR 13:48 → 1SOBS 19:50 → 6NMEDSUR 05-08 17:39 → OBSVTOIN 05-10 09:17 → 6NMEDSUR 05-15 20:26
PROVIDERS: ADMIT Internal Medicine; ATTEND Internal Medicine
PROC: 009U3ZX Drainage of Spinal Canal, Percutaneous Approach, Diagnostic (ICD-10-PCS; principal; 2024-05-10)
PROC: 3E0R3GC Introduction of Other Therapeutic Substance into Spinal Canal, Percutaneous Approach (ICD-10-PCS; 2024-05-10)
DX: A87.9 Viral meningitis, unspecified (principal); B02.0 Zoster encephalitis; B02.30 Zoster ocular disease, unspecified; B02.29 Other postherpetic nervous system involvement; F32.A Depression, unspecified; F41.9 Anxiety disorder, unspecified; G43.919 Migraine, unspecified, intractable, without status migrainosus; G97.1 Other reaction to spinal and lumbar puncture; Y84.4 Aspiration of fluid as the cause of abnormal reaction of the patient, or of later complication, without mention of misadventure at the time of the procedure; G50.0 Trigeminal neuralgia; K59.00 Constipation, unspecified; Z79.899 Other long term (current) drug therapy; Z87.891 Personal history of nicotine dependence
CPT/HCPCS: 36415; 62270; 62273; 70450; 70481; 70544; 70553; 80048; 80053; 82607; 82945; 83605; 83615; 83735; 83873; 84157; 84443; 84703; 85025; 85027; 85652; 86140; 86780; 87070; 87205; 87390; 87496; 87498; 87529; 87636; 87798; 88108; 89050; 94760; 96361; 96374; 96375; 96376; 99285

== ENCOUNTER → 2024-07-03 | Outpatient (CLI) | payer OTHER ==
[2024-07-03 14:46] LABS: Basophils # (A) 0.06 X 10*3/uL (0.00-0.10); Basophils % (A) 0.9 %; Eosinophils # (A) 0.11 X 10*3/uL (0.04-0.35); Eosinophils % (A) 1.6 %; HCT 43.1 % (37.2-46.3); Lymphocytes # (A) 1.67 X 10*3/uL (0.90-5.00); Lymphocytes % (A) 24.5 %; MCH 29.9 pg (27.0-32.0); MCHC 32.5 g/dL (32.0-37.0); MCV 91.9 FL (80.0-97.0); Mean Platelet Volume 10.1 FL (9.5-12.2); Monocytes # (A) 0.61 X 10*3/uL (0.20-1.00); NRBC Per 100 WBC 0 X 10*3/uL (0.00-0.01); Neutrophils # (A) 4.35 X 10*3/uL (1.80-7.70); Neutrophils % (A) 63.9 %; Platelet Count 278 X 10*3/uL (140-440); RBC 4.69 X 10*6/uL (4.10-5.20); RDW 13.8 % (11.5-14.5); WBC 6.81 X 10*3/uL (4.50-10.00)
[2024-07-03 15:07] LABS: ALT 11 U/L (8-44); AST 16 U/L (13-35); Albumin 4.4 g/dL (3.8-4.9); Albumin/Globulin Ratio 1.83 Ratio (1.60-3.17); Alkaline Phosphatase 59 U/L (41-126); BUN/Creat Ratio 12.12 Ratio (12.00-20.00); Blood Urea Nitrogen 9.7 mg/dL (9.0-27.0); Calcium 9.3 mg/dL (8.7-10.3); Carbon Dioxide 24.2 mmol/L (21.6-31.8); Chloride 105 mmol/L (96-109); Globulin 2.4 g/dL (1.6-3.3); Glucose 88 mg/dL (70-110); Potassium 4.3 mmol/L (3.5-5.5); Sodium 139 mmol/L (135-145); Total Bilirubin 0.3 mg/dL (0.3-1.2); Total Protein 6.8 g/dL (6.2-8.2)
[2024-07-03 21:49] LABS: Cancer Antigen 125 11.5 U/mL (0.0-30.1)
== END | disposition home or self-care (01) ==
LOC: LABWHC1 07:50
PROVIDERS: ATTEND Obstetrics & Gynecology Gynecologic Oncology
DX: D06.9 Carcinoma in situ of cervix, unspecified (principal)
CPT/HCPCS: 36415; 80053; 82378; 85025; 86304

== ENCOUNTER → 2024-07-05 | Outpatient (CLI) | payer OTHER ==
--- NOTE | 2024-07-06 17:56 | MM ---
Reason for Exam: Screening (asymptomatic). Last screening mammogram was performed 11 month(s) ago. Patient History: Menarche at age 13. First Full-Term at age 28. Premenopausal. Hormonal Contraceptives, starting at age 13. Paternal grandmother had breast cancer, age 40. Risk Values: Gisella 5 year model risk: 0.5%. NCI Lifetime model risk: 11.2%. Prior Study Comparison: 01/13/2022 Left MG 3D diag mammo w/cad LT, [facility]. 02/08/2023 Bilateral MG 3D screening mammo w/cad, [facility]. 08/31/2023 Bilateral MG 3D screening mammo w/cad, [facility]. Tissue Density: The breasts are heterogeneously dense, which may obscure small masses. Findings: Analyzed By CAD. There is no suspicious group of microcalcifications or new suspicious mass in either breast. Overall Assessment: Negative, BI-RAD 1 Management: Screening Mammogram of both breasts in 1 year. . Patient should continue monthly self-breast exams. A clinical breast exam by your physician is recommended on an annual basis. This exam should not preclude additional follow-up of suspicious palpable abnormalities. Note on Gisella scores and lifetime risk: 1. A Gisella score greater than 3% is considered moderate risk. If this is the case, consider specialist referral to assess eligibility for a risk reducing agent. 2. If overall lifetime risk for the development of breast cancer is 20% or higher, the patient may qualify for future screening with alternating mammogram and breast MRI. [facility], , 07/06/2024 5:53 PM. Electronically signed and approved by: Camilla Santana M.D. Radiologist
== END | disposition home or self-care (01) ==
LOC: RADMAMWWP 07:00
PROVIDERS: ATTEND Obstetrics & Gynecology Gynecologic Oncology
DX: Z12.31 Encounter for screening mammogram for malignant neoplasm of breast (principal); Z80.3 Family history of malignant neoplasm of breast; R92.333 Mammographic heterogeneous density, bilateral breasts
CPT/HCPCS: 77063; 77067

== ENCOUNTER → 2024-07-10 | Outpatient (CLI) | payer OTHER ==
[2024-07-10 16:00] LABS: ALT 12 U/L (8-44); AST 16 U/L (13-35); Albumin 4.7 g/dL (3.8-4.9); Albumin/Globulin Ratio 1.68 Ratio (1.60-3.17); Alkaline Phosphatase 58 U/L (41-126); BUN/Creat Ratio 11.88 Ratio (12.00-20.00); Blood Urea Nitrogen 9.5 mg/dL (9.0-27.0); Calcium 9.9 mg/dL (8.7-10.3); Carbon Dioxide 25.5 mmol/L (21.6-31.8); Chloride 104 mmol/L (96-109); Globulin 2.8 g/dL (1.6-3.3); Glucose 83 mg/dL (70-110); HCG,Quantitative Serum <3.0 mIU/mL (0.0-6.0); Potassium 4.2 mmol/L (3.5-5.5); Sodium 141 mmol/L (135-145); Total Bilirubin 0.5 mg/dL (0.3-1.2); Total Protein 7.5 g/dL (6.2-8.2)
[2024-07-10 16:04] LABS: HCT 43.2 % (37.2-46.3); HGB 14.2 g/dL (12.0-15.0); MCH 29.4 pg (27.0-32.0); MCHC 32.9 g/dL (32.0-37.0); MCV 89.4 FL (80.0-97.0); Mean Platelet Volume 9.9 FL (9.5-12.2); NRBC Per 100 WBC 0 X 10*3/uL (0.00-0.01); Platelet Count 361 X 10*3/uL (140-440); RBC 4.83 X 10*6/uL (4.10-5.20); RDW 13.1 % (11.5-14.5)
[2024-07-10 17:09] LABS: Appearance,Urine Clear (Clear); Bilirubin,Urine Negative (Negative); Blood,Urine Negative (Negative); Color,Urine Yellow (Yellow); Ketones,Urine Negative (Negative); Nitrite,Urine Negative (Negative); Specific Gravity,Urine 1.009 (1.001-1.030); Urobilinogen,Urine 0.2 E.U./DL
[2024-07-10 19:00] LABS: Cancer Antigen 125 11.9 U/mL (0.0-30.1)
== END | disposition home or self-care (01) ==
LOC: LABPAT 11:22
PROVIDERS: ATTEND Obstetrics & Gynecology Gynecologic Oncology
DX: D06.9 Carcinoma in situ of cervix, unspecified (principal)
CPT/HCPCS: 80053; 81003; 82378; 84702; 85027; 86304; 87086

== ENCOUNTER → 2025-02-28 | Outpatient (CLI) | payer OTHER ==
[2025-02-28 15:19] LABS: Basophils # (A) 0.07 X 10*3/uL (0.00-0.10); Basophils % (A) 0.8 %; Eosinophils # (A) 0.28 X 10*3/uL (0.04-0.35); Eosinophils % (A) 3.3 %; HCT 41.1 % (37.2-46.3); HGB 13.5 g/dL (12.0-15.0); Immature Grans, Automated 0.40 %; Lymphocytes # (A) 2.67 X 10*3/uL (0.90-5.00); Lymphocytes % (A) 31.7 %; MCH 29.4 pg (27.0-32.0); MCHC 32.8 g/dL (32.0-37.0); MCV 89.5 FL (80.0-97.0); Monocytes # (A) 0.67 X 10*3/uL (0.20-1.00); Monocytes % (A) 7.9 %; NRBC Per 100 WBC 0 X 10*3/uL (0.00-0.01); Neutrophils # (A) 4.71 X 10*3/uL (1.80-7.70); Neutrophils % (A) 55.9 %; Platelet Count 268 X 10*3/uL (140-440); RBC 4.59 X 10*6/uL (4.10-5.20); RDW 12.8 % (11.5-14.5); WBC 8.43 X 10*3/uL (4.50-10.00)
[2025-02-28 15:38] LABS: ALT 16 U/L (8-44); AST 18 U/L (13-35); Albumin 4.3 g/dL (3.8-4.9); Albumin/Globulin Ratio 2.05 Ratio (1.60-3.17); Alkaline Phosphatase 55 U/L (41-126); Anion Gap 12.00 mmol/L (4.00-12.00); BUN/Creat Ratio 14.57 Ratio (12.00-20.00); Blood Urea Nitrogen 10.2 mg/dL (9.0-27.0); Calcium 8.9 mg/dL (8.7-10.3); Carbon Dioxide 24.0 mmol/L (21.6-31.8); Chloride 101 mmol/L (96-109); Globulin 2.1 g/dL (1.6-3.3); Glucose 87 mg/dL (70-110); Potassium 3.8 mmol/L (3.5-5.5); Sodium 137 mmol/L (135-145); Total Protein 6.4 g/dL (6.2-8.2)
== END | disposition home or self-care (01) ==
LOC: LABWHC1 12:24
PROVIDERS: ATTEND Obstetrics & Gynecology Gynecologic Oncology
DX: D06.9 Carcinoma in situ of cervix, unspecified (principal)
CPT/HCPCS: 36415; 80053; 82378; 85025; 86304